=== PATIENT | female | born 1950 | race Caucasian/White ===

== ENCOUNTER 2022-11-13 15:55 | Outpatient (CLI) | payer MEDICARE, BC, SELFPAY | END 2022-11-13 15:56 | disposition home or self-care (01) | LOC: AMB 11-15 14:05 | PROVIDERS: PCP Internal Medicine; Visit Provider Emergency Medicine Emergency Medical Services | DX: R53.1 Weakness (principal) | CPT/HCPCS: A0425 ==

== ENCOUNTER 2022-11-13 16:24 | Emergency (ER) | payer MEDICARE, BC, SELFPAY ==
[2022-11-13] VITALS (16 sets, daily range): BP systolic 90–137; BP diastolic 59–89; PULSE 72–82; RESP 16; TEMP 36.4; O2SAT 90–100; BMI 32.3
--- NOTE | 2022-11-13 16:53 | ED_ITS ---
HPI - General Adult General Date Seen: 11/13/22 Chief complaint: Weakness Stated complaint: Not feeling well Time Seen by Provider: 11/13/22 16:29 Source: patient, EMS and RN notes reviewed Mode of arrival: EMS Limitations: no limitations History of Present Illness HPI narrative: Patient is a 72-year-old woman brought in by EMS. She was that [place] with her when she began to feel lightheaded. She thinks she may have passed out briefly although she is not sure. EMS reported that she was pale and somewhat clammy on their arrival, they did not relay vital signs but did say that her blood sugar was normal. On arrival here, she says she still feels poorly although she is not able to give any further clarification as to how. She does acknowledge feeling fatigued as well as nauseated. She denies pain anywhere. Specifically, she denies chest pain. She does have a little bit of a headache but says that she has a headache pretty much all the time. This is not unusual. She diverged into a story about a fall this summer where she hit her head and then had 2 black eyes. She was evaluated and had a CT scan which she says was negative and she was diagnosed with concussion. She has a history of hypertension and takes medications for high blood pressure. She denies previous history of stroke or heart attack. She denies any difficulty with speech, focal weakness. She does say that her feet feel numb bilaterally. She has not had any vomiting, denies abdominal or back pain. Denies illness previously today. Has been eating and drinking without difficulty. Related Data Home Medications Medication Instructions Recorded Confirmed alprazolam 0.5 mg tablet 0.5 mg PO PRN 03/24/22 04/20/22 cholecalciferol (vitamin D3) 125 5,000 unit PO DAILY 03/24/22 11/13/22 mcg (5,000 unit) tablet cyanocobalamin (vitamin B-12) 250 250 mcg PO DAILY 03/24/22 11/13/22 mcg lozenges diclofenac sodium 1 % topical gel 15 topical PRN 03/24/22 04/20/22 esomeprazole magnesium 40 mg mg PO BID 03/24/22 04/20/22 capsule,delayed release losartan 50 mg tablet mg PO DAILY 03/24/22 04/20/22 meclizine 12.5 mg tablet 12.5 mg PO PRN 03/24/22 04/20/22 nystatin 100,000 unit/gram topical 1 topical .Bid as needed PRN 03/24/22 04/20/22 ointment sennosides 8.6 mg tablet 8.6 mg PO PRN 03/24/22 04/20/22 tramadol 50 mg tablet 50 mg PO PRN 03/24/22 04/20/22 losartan 100 mg tablet 80 mg PO QDAY Hypertension 11/13/22 11/13/22 Previous Rx's Medication Instructions Recorded alprazolam 0.5 mg tablet 0.5 mg PO BID PRN anxiety #30 tabs 06/06/22 meloxicam 15 mg tablet 15 mg PO DAILY #90 tabs 07/28/22 Allergies Allergy/AdvReac Type Severity Reaction Status Date / Time oxycodone Allergy Mild previous Verified 11/13/22 16:42 opioid dependency Review of Systems Status of ROS: Reports: 10 or more systems reviewed and unremarkable except as noted in History and below [facility] Medical History Anxiety Surgical History History of cervical spinal arthrodesis (04/24/07) History of shoulder surgery History of total knee replacement Status post biopsy of skin (08/2017) Status post total knee replacement Family History Mother Dementia High cholesterol High blood pressure Stroke Father Emphysema lung High cholesterol High blood pressure Myocardial infarction Social History Narrative: nonsmoker Smoking Status: Never smoker How often do you have a drink containing alcohol: never AUDIT-C Alcohol total score: 0 Non-prescribed substance use: denies use Exam Narrative: Exam Narrative: Vital signs as noted above. In general, an alert, nontoxic woman. She keeps her eyes closed throughout our conversation. Head: Normocephalic, atraumatic. Eyes: Pupils are equal reactive. Extraocular movements are full. Conjunctivae are normal. ENT: Mucous membranes are moist. Throat is normal. Neck: Supple without lymphadenopathy. Heart: Regular rate and rhythm. No murmur or rub. Lungs: Clear bilaterally. No increased work of breathing, crackles or wheezes. Abdomen: Soft and nontender. No organomegaly. Extremities: Well perfused. No edema. No calf tenderness. Pulses intact. Neurologic: Patient is alert and oriented to person and place. Speech is fluent. Face is symmetric. Moves all extremities equally. Affect: Flat. Skin: Warm and dry. Well perfused. Const: Vital Signs, click to edit/add: Vital Signs - 24 hr 11/13/22 16:33 11/13/22 16:30 11/13/22 17:00 Temperature 97.5 F L Pulse Rate 74 Pulse Rate [Right Pulse Oximeter] 72 Respiratory Rate 16 Blood Pressure Blood Pressure [Le ft Upper Arm] 116/59 L Pulse Oximetry 100 100 90 Oxygen Delivery Me thod Room Air 11/13/22 17:06 11/13/22 17:15 11/13/22 17:22 Temperature Pulse Rate 74 74 75 Pulse Rate [Right Pulse Oximeter] Respiratory Rate Blood Pressure 119/59 L 127/61 Blood Pressure [Le ft Upper Arm] Pulse Oximetry 100 100 100 Oxygen Delivery Me thod 11/13/22 17:23 11/13/22 17:30 11/13/22 17:42 Temperature Pulse Rate 75 76 74 Pulse Rate [Right Pulse Oximeter] Respiratory Rate Blood Pressure 90/75 Blood Pressure [Le ft Upper Arm] Pulse Oximetry 100 100 100 Oxygen Delivery Me thod 11/13/22 17:49 11/13/22 18:00 11/13/22 18:03 Temperature Pulse Rate 77 74 73 Pulse Rate [Right Pulse Oximeter] Respiratory Rate Blood Pressure 131/68 Blood Pressure [Le ft Upper Arm] Pulse Oximetry 99 100 100 Oxygen Delivery Nd thod 11/13/22 18:15 11/13/22 18:30 11/13/22 19:13 Temperature Pulse Rate 73 79 82 Pulse Rate [Right Pulse Oximeter] Respiratory Rate Blood Pressure 137/65 Blood Pressure [Le ft Upper Arm] Pulse Oximetry 100 100 97 Oxygen Delivery Nd thod 11/13/22 19:22 Temperature Pulse Rate 79 Pulse Rate [Right Pulse Oximeter] Respiratory Rate Blood Pressure 129/89 Blood Pressure [Le ft Upper Arm] Pulse Oximetry 100 Oxygen Delivery Me thod Documenting provider has reviewed patient's vital signs: yes Course Course Hospital Course: On arrival, she was placed on monitor and oximetry. She had an EKG which by my review shows a sinus rhythm at a ventricular rate of 70. She has slight ST elevation in AVR but I do not see any diffuse ST depression. T-waves are unremarkable. Labs are pending. I have ordered 500 mL of normal saline. At this time, she has nonfocal neurologic exam. Symptoms are somewhat nonspecific following either a near syncopal or syncopal event. No reported seizure activity. Labs were most notable for an initial lactate of 3.7, of uncertain significance. Her white blood cell count was normal and she remained afebrile. Hemoglobin was 10.7 which is right around her baseline of 11. Platelets were normal. D- dimer was less than 0.5. Electrolytes were normal, BUN was 19, creatinine was 0.8. Blood sugar was 133. LFTs were normal, CRP was normal at 0.9. Urinalysis showed 2+ ketones, 0-2 reds, 0-2 whites. Initial troponin was 0, a repeat troponin at 2:00 a.m. was 0.1. I did repeat EKG as well, and this continued to show no acute ST segment changes, normal sinus rhythm, a normal corrected QT and normal PA interval. She had about a L of normal saline here and a repeat lactate was 2.4. With ketones in her urine it does raise the possibility of some dehydration contributing to her syncope today. Also of note, she tells me that she had taken tramadol, 2 doses today. She does take tramadol she says fairly regularly for her neck and back pain, but she says she typically does not take it when she goes out, she usually takes it when she is going to bed. So this may have contributed as well. Overall, I have discussed with her I do not have a definitive diagnosis as to the cause of her syncope. She has felt progressively improved while here, and is anxious to go home. I have not found anything concerning overall in her workup. She has been unremarkable on the monitor. From a neurologic and cardiovascular standpoint she is stable. I have asked her to follow up with her primary care doctor in the next week or 2 for re-evaluation, and certainly if she has any recurrent episodes or develops significant symptoms I would want her to return to the emergency department. She is comfortable with that plan. Vital Signs Vital signs: Initial Vital Signs Pulse Oximetry 100 11/13/22 16:30 Vital Signs Pulse Oximetry 100 11/13/22 16:30 Temperature 97.5 F L 11/13/22 16:33 Pulse Rate 79 11/13/22 19:22 Respiratory Rate 16 11/13/22 16:33 Blood Pressure 129/89 11/13/22 19:22 Pulse Oximetry 100 11/13/22 19:22 Oxygen Delivery Method 11/13/22 16:33 Medical Decision Making Lab Data Labs: Lab Results 11/13/22 11/13/22 11/13/22 Range/Units 16:40 17:04 17:04 WBC 7.85 (4.50-11.00) K/uL RBC 3.40 L (4.00-5.20) m/uL Hgb 10.7 L (12.0-16.0) gm/dL Hct 32.7 L (33.0-51.0) % MCV 96 (80-100) fL MCH 32 (26-34) pg MCHC 33 (32-36) gm/dL RDW Coeff of [place] 14.2 (11.5-15.5) % Plt Count 307 (140-440) K/uL Neut % (Auto) 63.0 (42.0-72.0) % Lymph % (Auto) 28.2 (20-44) % [place] % (Auto) 5.6 (0.0-11.0) % Eos % (Auto) 1.9 (0.0-7.0) % Baso % (Auto) 0.3 (0.0-3.0) % Neut # (Auto) 4.95 (1.7-7.0) K/uL Lymph # (Auto) 2.21 (0.90-2.90) K/uL [place] # (Auto) 0.40 (0.00-0.90) K/UL Eos # (Auto) 0.15 (0.00-0.50) K/uL Baso # (Auto) 0.02 (0.00-0.30) K/uL D-Dimer Quant (PE/DVT) 0.49 (0.00-0.50) ug/ml Sodium (135-149) mmol/L Potassium (3.6-5.1) mmol/L Chloride (96-114) mmol/L Carbon Dioxide (20-32) mmol/L BUN (7-30) mg/dL Creatinine (0.5-1.5) mg/dL Estimated Creat Clear Estimated GFR ml/min Glucose (60-115) mg/dL Lactate (0.5-1.9) mmol/L Calcium (8.4-10.6) mg/dL Total Bilirubin (0.1-1.5) mg/dL Direct Bilirubin (0.0-0.5) mg/dL AST (12-35) U/L ALT (4-35) U/L Alkaline Phosphatase (40-150) U/L C-Reactive Protein (0.5-1.0) mg/dL Total Protein (6.0-8.3) g/dL Albumin (3.3-5.0) g/dL Urine Color (Yellow) Urine Appearance (Clear) Urine pH (5.0-8.5) Ur Specific [place] (1.000-1.030) Urine Protein (Negative) Urine Glucose (UA) (Negative) Urine Ketones (Negative) Urine Blood (Negative) Urine Nitrite (Negative) Urine Bilirubin (Negative) Urine Urobilinogen (0.2-1.0) Ur Leukocyte Esterase (Negative) Urine RBC (0-2) Urine WBC (0-5) Ur Squamous Epith Cells (None-Few) Urine Bacteria (None) POC Troponin I 0.01 (0.01-0.04) ng/ml 11/13/22 11/13/22 11/13/22 Range/Units 17:04 17:04 17:45 WBC (4.50-11.00) K/uL RBC (4.00-5.20) m/uL Hgb (12.0-16.0) gm/dL Hct (33.0-51.0) % MCV (80-100) fL MCH (26-34) pg MCHC (32-36) gm/dL RDW Coeff of [place] (11.5-15.5) % Plt Count (140-440) K/uL Neut % (Auto) (42.0-72.0) % Lymph % (Auto) (20-44) % [place] % (Auto) (0.0-11.0) % Eos % (Auto) (0.0-7.0) % Baso % (Auto) (0.0-3.0) % Neut # (Auto) (1.7-7.0) K/uL Lymph # (Auto) (0.90-2.90) K/uL [place] # (Auto) (0.00-0.90) K/UL Eos # (Auto) (0.00-0.50) K/uL Baso # (Auto) (0.00-0.30) K/uL D-Dimer Quant (PE/DVT) (0.00-0.50) ug/ml Sodium 138 (135-149) mmol/L Potassium 3.7 (3.6-5.1) mmol/L Chloride 108 (96-114) mmol/L Carbon Dioxide 20 (20-32) mmol/L BUN 19 (7-30) mg/dL Creatinine 0.8 (0.5-1.5) mg/dL Estimated Creat Clear 56.55 Estimated GFR 77 ml/min Glucose 133 H (60-115) mg/dL Lactate 3.7 H (0.5-1.9) mmol/L Calcium 9.1 (8.4-10.6) mg/dL Total Bilirubin 0.3 (0.1-1.5) mg/dL Direct Bilirubin 0.3 (0.0-0.5) mg/dL AST 27 (12-35) U/L ALT 21 (4-35) U/L Alkaline Phosphatase 81 (40-150) U/L C-Reactive Protein 0.9 (0.5-1.0) mg/dL Total Protein 7.0 (6.0-8.3) g/dL Albumin 4.1 (3.3-5.0) g/dL Urine Color Yellow (Yellow) Urine Appearance Clear (Clear) Urine pH 7.0 (5.0-8.5) Ur Specific [place] 1.015 (1.000-1.030) Urine Protein Trace A (Negative) Urine Glucose (UA) Negative (Negative) Urine Ketones 2+ A (Negative) Urine Blood Negative (Negative) Urine Nitrite Negative (Negative) Urine Bilirubin Negative (Negative) Urine Urobilinogen 0.2 (0.2-1.0) Ur Leukocyte Esterase Negative (Negative) Urine RBC 0-2 (0-2) Urine WBC 0-2 (0-5) Ur Squamous Epith Cells Few (None-Few) Urine Bacteria None (None) POC Troponin I (0.01-0.04) ng/ml 11/13/22 11/13/22 Range/Units 18:44 18:44 WBC (4.50-11.00) K/uL RBC (4.00-5.20) m/uL Hgb (12.0-16.0) gm/dL Hct (33.0-51.0) % MCV (80-100) fL MCH (26-34) pg MCHC (32-36) gm/dL RDW Coeff of [place] (11.5-15.5) % Plt Count (140-440) K/uL Neut % (Auto) (42.0-72.0) % Lymph % (Auto) (20-44) % [place] % (Auto) (0.0-11.0) % Eos % (Auto) (0.0-7.0) % Baso % (Auto) (0.0-3.0) % Neut # (Auto) (1.7-7.0) K/uL Lymph # (Auto) (0.90-2.90) K/uL [place] # (Auto) (0.00-0.90) K/UL Eos # (Auto) (0.00-0.50) K/uL Baso # (Auto) (0.00-0.30) K/uL D-Dimer Quant (PE/DVT) (0.00-0.50) ug/ml Sodium (135-149) mmol/L Potassium (3.6-5.1) mmol/L Chloride (96-114) mmol/L Carbon Dioxide (20-32) mmol/L BUN (7-30) mg/dL Creatinine (0.5-1.5) mg/dL Estimated Creat Clear Estimated GFR ml/min Glucose (60-115) mg/dL Lactate 2.4 H (0.5-1.9) mmol/L Calcium (8.4-10.6) mg/dL Total Bilirubin (0.1-1.5) mg/dL Direct Bilirubin (0.0-0.5) mg/dL AST (12-35) U/L ALT (4-35) U/L Alkaline Phosphatase (40-150) U/L C-Reactive Protein (0.5-1.0) mg/dL Total Protein (6.0-8.3) g/dL Albumin (3.3-5.0) g/dL Urine Color (Yellow) Urine Appearance (Clear) Urine pH (5.0-8.5) Ur Specific [place] (1.000-1.030) Urine Protein (Negative) Urine Glucose (UA) (Negative) Urine Ketones (Negative) Urine Blood (Negative) Urine Nitrite (Negative) Urine Bilirubin (Negative) Urine Urobilinogen (0.2-1.0) Ur Leukocyte Esterase (Negative) Urine RBC (0-2) Urine WBC (0-5) Ur Squamous Epith Cells (None-Few) Urine Bacteria (None) POC Troponin I 0.00 L (0.01-0.04) ng/ml Discharge Plan Discharge Clinical Impression: Syncope Patient Disposition: Home, Self-Care Condition: Improved Instructions: Syncope (DC) Additional Instructions: Follow-up with your primary doctor in the next 1-2 weeks. Return at any time for recurrent fainting, new symptoms such as fever, vomiting, shortness of breath, chest pain or other new symptoms. Make sure to stay on top of hydration, be careful with use of tramadol. Prescriptions: No Action cyanocobalamin (vitamin B-12) 250 mcg lozenge 250 mcg PO DAILY cholecalciferol (vitamin D3) 125 mcg (5,000 unit) tablet 5,000 unit PO DAILY losartan 50 mg tablet PO DAILY tramadol 50 mg tablet 50 mg PO PRN diclofenac sodium 1 % gel 15 topical PRN Rx Instructions: Apply small amount BID as needed esomeprazole magnesium 40 mg capsule,delayed release(DR/EC) PO BID alprazolam 0.5 mg tablet 0.5 mg PO PRN meclizine 12.5 mg tablet 12.5 mg PO PRN nystatin 100,000 unit/gram ointment 1 topical .Bid as needed PRN sennosides 8.6 mg tablet 8.6 mg PO PRN losartan 100 mg tablet 80 mg PO QDAY alprazolam 0.5 mg tablet 0.5 mg PO BID PRN (Reason: anxiety) Qty: 30 0RF meloxicam 15 mg tablet 15 mg PO DAILY Qty: 90 1RF Follow Up/Referrals: Augie Haney MD [Primary Care Provider] - [facility]
[2022-11-13] MEDS: 0.9 % SODIUM CHLORIDE 500 ML 500 ML IV (17:00)
[2022-11-13 17:11] LABS: Lactate* 3.7 mmol/L (0.5-1.9)
[2022-11-13 17:19] LABS: Basophils Absolute Auto 0.02 K/uL (0.00-0.30); Basophils Percent Auto 0.3 % (0.0-3.0); Eosinophils Absolute Auto 0.15 K/uL (0.00-0.50); Eosinophils Percent Auto 1.9 % (0.0-7.0); Hematocrit 32.7 % (33.0-51.0); Hemoglobin* 10.7 gm/dL (12.0-16.0); Immature Granulocytes Abs Auto 0.08 K/uL (0.00-0.30); Lymphocytes Absolute Auto 2.21 K/uL (0.90-2.90); Lymphocytes Percent Auto 28.2 % (20-44); Mean Corpuscular HGB Conc 33 gm/dL (32-36); Mean Corpuscular Hemoglobin 32 pg (26-34); Mean Corpuscular Volume 96 fL (80-100); Monocytes Percent Auto 5.6 % (0.0-11.0); Neutrophils Absolute Auto 4.95 K/uL (1.7-7.0); Platelet Count* 307 K/uL (140-440); RDW Coefficient of Variation % 14.2 % (11.5-15.5); White Blood Count* 7.85 K/uL (4.50-11.00)
[2022-11-13 17:22] LABS: Troponin, Point-of-Care* 0.01 ng/ml (0.01-0.04)
[2022-11-13 17:27] LABS: Slide Review Reflex No
[2022-11-13 17:43] LABS: D Dimer Quantitative* 0.49 ug/ml (0.00-0.50)
[2022-11-13 17:44] LABS: Albumin* 4.1 g/dL (3.3-5.0); Chloride* 108 mmol/L (96-114)
[2022-11-13 17:45] LABS: Potassium* 3.7 mmol/L (3.6-5.1); Sodium* 138 mmol/L (135-149)
[2022-11-13 17:47] LABS: Alkaline Phosphatase* 81 U/L (40-150); Aspartate Amino Transferase* 27 U/L (12-35); Bilirubin Direct* 0.3 mg/dL (0.0-0.5); Bilirubin Total* 0.3 mg/dL (0.1-1.5); Carbon Dioxide* 20 mmol/L (20-32); Creatinine* 0.8 mg/dL (0.5-1.5); Est. Creatinine Clearance* 56.55; Estimated Glomerular Filt Rate 77 ml/min
[2022-11-13 17:48] LABS: Alanine Aminotransferase* 21 U/L (4-35); Blood Urea Nitrogen* 19 mg/dL (7-30); Calcium* 9.1 mg/dL (8.4-10.6); Glucose* 133 mg/dL (60-115)
[2022-11-13 17:50] LABS: C Reactive Protein* 0.9 mg/dL (0.5-1.0)
[2022-11-13 17:56] LABS: Appearance Urine Clear (Clear); Bilirubin Urine Negative (Negative); Blood Urine Negative (Negative); Color Urine Yellow (Yellow); Glucose Urine Negative (Negative); Ketones Urine 2+ (Negative); Leukocyte Esterase Urine Negative (Negative); Nitrite Urine Negative (Negative); Protein Urine Trace (Negative); Specific Gravity Urine 1.015 (1.000-1.030); Urobilinogen Urine 0.2 (0.2-1.0)
[2022-11-13 18:11] LABS: RBC Urine 0-2 (0-2); Squamous Epithelial Cell Urine Few (None-Few); WBC Urine 0-2 (0-5)
--- NOTE | 2022-11-13 18:27 | ED.NURSE ---
Pt able to ambulate to the BR w/ a steady gait.
[2022-11-13 19:06] LABS: Lactate* 2.4 mmol/L (0.5-1.9)
== END 2022-11-13 19:34 | disposition home or self-care (01) ==
PROVIDERS: Emergency Provider Emergency Medicine; PCP Internal Medicine
DX: R55 Syncope and collapse (principal)
CPT/HCPCS: 36415; 80048; 80076; 81001; 83605; 84484; 85025; 85379; 86140; 93005; 94761; 99284; J7120

== ENCOUNTER 2022-11-23 13:19 | Outpatient (CLI) | payer MEDICARE, BC, SELFPAY | END 2022-11-23 13:20 | disposition home or self-care (01) | LOC: NFLDREF 13:21 | PROVIDERS: PCP Internal Medicine; Visit Provider Internal Medicine | DX: E55.9 Vitamin D deficiency, unspecified (principal); I10 Essential (primary) hypertension; R55 Syncope and collapse; D64.9 Anemia, unspecified | CPT/HCPCS: 80048; 87086 ==

== ENCOUNTER 2022-12-08 13:31 | Outpatient (CLI) | payer MEDICARE, BC, SELFPAY ==
--- NOTE | 2022-12-08 15:00 | CRLHL7_ITS ---
For Patients: As a result of the Century Cures Act, medical imaging exams and procedure reports are released immediately into your electronic medical record. You may view this report before your referring provider. If you have questions, please contact your health care provider. INDICATION: Syncope. TECHNIQUE: 2D grayscale, pulsed waveform, and color Doppler ultrasound images acquired through the cervical arteries. COMPARISON: None. FINDINGS: Right side: Partially shadowing echogenic plaque within the carotid bulb. Peak systolic velocities are elevated up to 144 cm/sec. ICA CCA ratio 1.39. Antegrade flow within the vertebral artery and multiphasic flow within the subclavian artery. Left Side: Partially shadowing echogenic plaque within the carotid bulb. Peak systolic velocities are within normal limits. ICA CCA ratio 0.82. Antegrade flow within the vertebral artery and multiphasic flow within the subclavian artery. Other: Please refer to the technologist worksheet for specific flow velocity measurements. IMPRESSION: 1. Moderate (50-69 percent) right internal carotid artery stenosis. 2. Mild (less than 50 percent) left internal carotid artery stenosis. 3. Antegrade flow in the vertebral arteries. Dictated by Nadeem Gauthier MD @ 12/09/2022 9:10:27 AM (Electronically Signed)
== END 2022-12-08 13:32 | disposition home or self-care (01) ==
PROVIDERS: PCP Internal Medicine; Visit Provider Internal Medicine
DX: R55 Syncope and collapse (principal); I65.21 Occlusion and stenosis of right carotid artery; I65.22 Occlusion and stenosis of left carotid artery
CPT/HCPCS: 93306; 93880

== ENCOUNTER 2022-12-19 10:16 | Outpatient (CLI) | payer MEDICARE, BC, SELFPAY | END 2022-12-19 10:17 | disposition home or self-care (01) | PROVIDERS: PCP Internal Medicine; Visit Provider Internal Medicine | DX: I65.29 Occlusion and stenosis of unspecified carotid artery (principal); E55.9 Vitamin D deficiency, unspecified; I10 Essential (primary) hypertension | CPT/HCPCS: 80061 ==

== ENCOUNTER 2023-12-19 09:22 | Outpatient (CLI) | payer MEDICARE, BC, SELFPAY ==
--- OUTSIDE RECORDS SUMMARY | 2023-12-22 07:23 | XMS_ITS | Referral Summary ---
Author Name Unknown Organization [facility] Address [address] [place] [address] Care Team Providers Care Occupational Health Coordinator Name Role Phone Danika Ambrocio M.D. Primary Care Provider Source Comments Patient records contain information from all sites at [facility]. For routine questions regarding patient records, call [phone] during business hours, M-F 8:00 AM - 5:00 PM Central Time. Record requests for emergency care only can be directed to [phone] at any time.[facility] Encounters Date Type Department Care Team Description 12/12/2023 Orders Only [facility] Danika Ambrocio M.D. Screening Mammogram Breast Cancer 11/29/2023 Refill Department of [facility], [facility], in [address] [phone] Danika Ambrocio M.D. Med Refill 11/22/2023 Clinical Communication Department of [facility], [facility], in [address] [phone] Brigette Garcia R.N. Quality (HTN) from Last [...] following with them through [employer] [facility] [place]. Past medications tried: Zoloft. She reports that this has made her mean and irritable in the past. Effexor: Not effective. Degeneration Disc Lumbar 08/04/2014 Overview: She follows with health care specialist which has been helpful. She [...] Comments Blood Pressure 124/74 11/18/2022 1:16 PM FIREBOAT OPERATOR Pulse 76 11/18/2022 1:16 PM FIREBOAT OPERATOR Temperature 36.5 ??C (97.7 ??F) 11/18/2022 1:16 PM CS T Respiratory Rate 18 11/18/2022 1:16 PM FIREBOAT OPERATOR Oxygen Saturation 99% 08/30/2022 12:33 PM FIREBOAT OPERATOR Inhaled Oxygen Concentration - - Weight 72.4 kg (159 lb 9.8 oz) 11/18/2022 1:16 P M FIREBOAT OPERATOR Height 150.5 cm (4' 11.25) 11/18/2022 1:[address] Body Mass Index 31.96 11/18/2022 1:16 PM FIREBOAT OPERATOR Plan of Treatment Not on file Medical Devices Implanted Type Area Watershed Coordinator Device Identifier Shelf Expiration Date Model / Serial / Lot Knee Implant Knee Implant Bilateral: Knee Shoulder Implant Shoulder Implant Bilateral: Shoulder Spine Implant Spine Implant Neck Care Teams Occupational Health Coordinator Relationship Specialty Start Date End Date Danika Ambrocio M.D. [address] [place] [phone] PCP - General Family Medicine 11/16/22
--- OUTSIDE RECORDS SUMMARY | 2023-12-22 07:23 | XMS_ITS | Encounter Summary ---
Author Name Unknown Organization [facility] Address [address] [place] [address] Care Team Providers Care Bureau Director Name Role Phone Danika Ambrocio M.D. Primary Care Provider Reason for Referral * Outpatient (Routine) - Authorized Specialty Diagnoses / Procedures Referred By Wilfred pantoja Referred To Contact Danika Ambrocio M.D. [address] [place] [address] [facility] Region Referral ID Status Reason Start Date Expiration Date V isits Requested Visits Authorized [id number] Authorized 12/12/2023 06/12/2025 1 1 Scheduling Instructions Nurse AWV Do not schedule prior to due date to ensure insurance coverage Visit: Medicare Annual Wellness Never done. * Outpatient (Routine) - Authorized Specialty Diagnoses / Procedures Referred By Wilfred pantoja Referred To Contact Diagnoses Screening Mammogram Breast Cancer Procedures BI Breast Screening Bilateral with Tomosynthesis Danika Ambrocio M.D. [address] [place] [address] [facility] Region Referral ID Status Reason Start Date Expiration Date V isits Requested Visits Authorized [id number] Authorized 12/12/2023 12/11/2024 1 1 Encounter Details Date Type Department Care Team (Late st Contact Info) Description 12/12/2023 Orders Only [facility] MNT Danika Ambrocio M.D. [address] [place] [address] Screening Mammogram Breast Cancer Social History Tobacco [...] Schedule Primary Care nurse visit (clinic) - [facility]; Medicare Annual Wellness Outpatient Referral Routine Expected: 01/09/2024, Expires: 06/09/2024 documented as of this encounter Visit Diagnoses Diagnosis Screening Mammogram Breast Cancer documented in this encounter Additional Health Concerns Assessment Noted Time PHQ-9 Depression Total Score: 6 05/04/20 22 7:55 AM CDT documented as of this encounter Care Teams Bureau Director Relationship Specialty Start Date End Date Danika Ambrocio M.D. [address] [place] [address] PCP - General Family Medicine 11/16/22 documented as of this encounter
--- OUTSIDE RECORDS SUMMARY | 2023-12-22 07:23 | XMS_ITS | Encounter Summary ---
Author Name Unknown Organization [facility] Address [address] [place] [address] Care Team Providers Care Outside Energy Sales Representatives Name Role Phone Danika Ambrocio M.D. Primary Care Provider [phone] Reason for Visit * Reason Onset Date Comments Quality 11/22/2023 HTN Encounter Details Date Type Department Care Team (Late st Contact Info) Description 11/22/2023 Clinical Communication Department of Family Medicine, [facility], in [place], [place] [address] [place] [address] Brigtete Garcia R.N. Quality (HTN) Social History Tobacco [...] documented as of this encounter Care Teams Outside Energy Sales Representatives Relationship Specialty Start Date End Date Danika Ambrocio M.D. [address] [place] [phone] PCP - General Family Medicine 11/16/22 documented as of this encounter
--- OUTSIDE RECORDS SUMMARY | 2023-12-22 07:23 | XMS_ITS | Clinical Summary ---
Author Name Unknown Organization [facility] Address [place], [place] [address] Care Team Providers Care Body Former Name Role Phone Augie Haney MD Primary [...] (174 lb 3.2 oz) 10/24/2019 10:06 AM MEDICAL INSURANCE BILLER boots on Height 151.5 cm (4' 11.65) 11/02/2018 9:[address] Body Mass Index 34.43 11/02/2018 9:42 AM MEDICAL INSURANCE BILLER Plan of Treatment Upcoming Encounters Date Type Department Care Team (Late st Contact Info) Description 01/08/2024 10:20 AM CDT Office Visit [facility] [address] [place] [address] Adelso, Navjot [place] [address] Health Maintenance Due Date Last Done Comments [...] 65+ 05/12/2024 Medical Devices Implanted Type Area Nurse Practitioner Manager Device Identifier Shelf Expiration Date Model / Serial / Lot [id number] spacer Olayinka/Canclls 8mm P Lordotic Acf Fd [id number] [[id number]] Implanted:Qty: 1 on 04/19/2007 at [facility] Explanted:at [facility] (Quantity not on file) Spine Musculoskeletal Transplant 02/14/2010 [id number]# / [id number] / [id number] spacer Olayinka/Canclls 9mm P Lordotic Acf Fd [id number] [[id number]] Implanted:Qty: 1 on 04/19/2007 at [facility] Explanted:at [facility] (Quantity not on file) Spine Musculoskeletal Transplant 12/08/2009 [id number]# / [id number] / Plate Cerv 34mm 2 Level Ant Sp Reflex Hybrid - [id number] Implanted:Qty: 1 on 04/19/2007 at [facility] Spine [employer] [id number] / / Screw Bone 4.0x14mm Va-Sd Sp Reflex Hybrid - [id number] Implanted:Qty: 6 on 04/19/2007 at [facility] Spine [employer] [id number] / / Advance Directives * Full Code (Latest Code Status on File) Date Activated Date Inactivated Comments 04/19/2007 11:32 AM 04/21/2007 3:36 PM Care Teams Body Former Relationship Specialty Start Date End Date Augie Haney MD [address] [place] [address] PCP - General 04/13/07
--- OUTSIDE RECORDS SUMMARY | 2023-12-22 07:23 | XMS_ITS | Continuity of Care Document ---
Author Name Unknown Organization [facility] Address [address] [place] [address] Phone Care Team Providers Care Composite Layup Worker Name Role Phone Edwin RENDON, Amir Unavailable Unavailable Allergies, Adverse Reactions, Alerts Substance Reaction Status Criticality No Known Allergies Active No Inform ation Medications Medication Instructions Dosage Effective Dates (start - stop) Status Comments LANSOPRAZOLE (unknown strength) Not Available - Active XANAX (unknown strength) Not Available - Active TRAMADOL HCL ER (unknown strength) Not Available - Active LEXAPRO (unknown strength) Not Available - Active Procedures Procedure Date Office/Outpatient Visit,New, [facility] 2015 Postop followup visit X-ray exam of [...] Visit,New, Ceci Sharmila/MARY LOU, [address], [place], [place], [id number], tel:[phone] [facility] Other spondylosis, lumbar region 201 6 Mehbod Amir. [facility], [address] [place] [address] [place] [address], [id number], [place]. tel:[phone] Referring Provider: Navjot Perez, [address], [address]. tel:[phone] Z [facility], [address] [place] [address], [address], tel:[phone] [facility] No Information 7 Panvica Tani. [facility], [address] [place] [address], [address], [id number], [place]. tel:[phone] Referring Provider: Augie [facility] [address] [place], [address]. tel:[phone] [facility], [address] [place] [address], [address], [place] tel:[phone] [facility] No Information 0 7 No Information Referring Provider: Ghosh [facility] [address] [place], [address]. tel:[phone] Office consultation , moderate Z [facility], [address] [place] [address], [address], tel:[phone] [facility] No Information 7 No Information Family History Family Member Type Diagnosis Age At Onset No Information Payers Payer name Insurance type Covered green party ID Authoriza tion(s) [employer] [facility] CI [id number] Social History Type Description Quantity Date Captured [...]
--- OUTSIDE RECORDS SUMMARY | 2023-12-22 07:23 | XMS_ITS | Clinical Summary ---
Author Name Unknown Organization [facility] Address [address] [place] [address] Care Team Providers Care Integration Software Developer Name Role Phone Danika Ambrocio M.D. Primary Care Provider [phone] Source Comments Patient records contain information from all sites at [facility]. For routine questions regarding patient records, call [phone] during business hours, M-F 8:00 AM - 5:00 PM Central Time. Record requests for emergency care only can be directed to [phone] at any time.[facility] Allergies Active Allergy Reactions Criticality Noted Date [...] following with them through [employer] in [place]. Past medications tried: Zoloft. She reports that this has made her mean and irritable in the past. Effexor: Not effective. Degeneration Disc Lumbar 08/04/2014 Overview: She follows with plant care worker which has been helpful. She receives 60 tablets of tramadol up to every month to help with chronic low back pain. Resolved Problems Problem Noted Date Diagnosed Date Resolved Date Fatigue 09/20/2022 11/18/2022 Encounters Date Type Department Care Team Description 12/12/2023 Orders Only [facility] PCP TH MNT Danika Ambrocio M.D. Screening Mammogram Breast Cancer 11/29/2023 Refill Department of Family Medicine, [facility], in [place] [address] [facility] [address] Danika Ambrocio M.D. Med Refill 11/22/2023 Clinical Communication Department of Family Medicine, [facility], in [place], [place] [address] [place] [address] Brigette Garcia R.N. Quality (HTN) from Last [...] Comments Blood Pressure 124/74 11/18/2022 1:16 PM SAP BPC DEVELOPER Pulse 76 11/18/2022 1:16 PM SAP BPC DEVELOPER Temperature 36.5 ??C (97.7 ??F) 11/18/2022 1:16 PM CS T Respiratory Rate 18 11/18/2022 1:16 PM SAP BPC DEVELOPER Oxygen Saturation 99% 08/30/2022 12:33 PM SAP BPC DEVELOPER Inhaled Oxygen Concentration - - Weight 72.4 kg (159 lb 9.8 oz) 11/18/2022 1:16 P M SAP BPC DEVELOPER Height 150.5 cm (4' 11.25) 11/18/2022 1:[address] Body Mass Index 31.96 11/18/2022 1:16 PM SAP BPC DEVELOPER Plan of Treatment Health Maintenance Due Date [...] Completed 05/04/2022 Medical Devices Implanted Type Area Inspector Metal Can Device Identifier Shelf Expiration Date Model / Serial / Lot Knee Implant Knee Implant Bilateral: Knee Shoulder Implant Shoulder Implant Bilateral: Shoulder Spine Implant Spine Implant Neck Care Teams Integration Software Developer Relationship Specialty Start Date End Date Danika Ambrocio M.D. [address] [place] [phone] PCP - General Family Medicine 11/16/22
--- OUTSIDE RECORDS SUMMARY | 2023-12-22 07:23 | XMS_ITS | Clinical Summary ---
Author Name Unknown Organization [place] Address [facility] [place] [address] Care Team Providers Care Estimator And Drafter Name Role Phone Augie Haney MD Primary [...] 178 <200 mg/dL 02/09/2018 6:41 PM CDT [facility] Triglycerides 101 <150 mg/dL 02/09/2018 6:41 PM CDT [facility] Comment:Fasting specimen HDL Cholesterol 59 >49 mg/dL 8 6:41 PM CDT [facility] LDL Cholesterol Calculated 99 <100 mg/dL 02/09/2018 6:41 PM CDT [facility] Comment:Desirable: <100 mg/d l Non HDL Cholesterol 119 <130 mg/dL 02/09/2018 6:41 PM CDT [facility] Blood specimen (specimen) 02/09/2018 12:06 PM CDT 02/09/2018 12:07 PM CDT Payton Rand PA-C LAB - BL OOD ORDERABLES [facility] [address] [place] [address] * (ABNORMAL) Comprehensive metabolic panel (02/09/2018 12:06 PM CDT) Sodium 140 133 - 144 mmol/L 02/09/2018 6:41 PM CDT [facility] Potassium 4.3 3.4 - 5.3 mmol/L 02/09/2018 6:41 PM CDT [facility] Chloride 107 94 - 109 mmol/L 02/09/2018 6:41 PM CDT [facility] Carbon Dioxide 24 20 - 32 mmol/L 02/09/2018 6:41 PM CDT [facility] Anion Gap 9 3 - 14 mmol/L 02/09/2018 6:41 PM T [facility] Glucose 97 70 - 99 mg/dL 02/09/2018 6:41 PM CDT [facility] Comment:Fasting specimen Urea Nitrogen 14 7 - 30 mg/dL 02/09/2018 6:41 PM CDT [facility] Creatinine 0.62 0.52 - 1.04 mg/dL 02/09/2018 6:41 PM CDT [facility] GFR Estimate >90 >60 mL/min/1.7 m2 02/09/2018 6:41 PM T [facility] Comment:Non GFR Calc GFR Estimate If Black >90 >60 mL/min/1.7 m2 02/09/2018 6:41 PM CDT [facility] Comment: GFR Calc Calcium 9.2 8.5 - 10.1 mg/dL 02/09/2018 6:41 PM CDT [facility] Bilirubin Total 0.1(L) 0.2 - 1.3 mg/dL 02/09/2018 6:41 PM T [facility] Albumin 3.8 3.4 - 5.0 g/dL 02/09/2018 6:41 PM T [facility] Protein Total 7.6 6.8 - 8.8 g/dL 02/09/2018 6:41 PM CDT [facility] Alkaline Phosphatase 117 40 - 150 U/L 02/09/2018 6:41 PM T [facility] ALT 23 0 - 50 U/L 02/09/2018 6:41 PM T [facility] AST 21 0 - 45 U/L 02/09/2018 6:41 PM T [facility] Blood specimen (specimen) 02/09/2018 12:06 PM CDT 02/09/2018 12:07 PM CDT Payton Evelyn Aaseby-Castillo PA-C LAB - BL OOD ORDERABLES [facility] [address] [place] [address] from Last 3 Months or Most Recently Relevant to Health Maintenance Care Teams Estimator And Drafter Relationship Specialty Start Date End Date Augie Haney MD [facility] [address] [place] [address] PCP - General Emergency Medicine 02/21/22
--- OUTSIDE RECORDS SUMMARY | 2023-12-22 07:23 | XMS_ITS | Encounter Summary ---
Author Name Unknown Organization [facility] Address [address] [place] [address] Care Team Providers Care Supervisor Bottle Machines Name Role Phone Danika Ambrocio M.D. Primary Care Provider Reason for Visit * Reason Comments Med Refill Encounter Details Date Type Department Care Team ([facility] st Contact Info) Description 11/29/2023 Refill Department of Family Medicine, [facility], in [place], [place] [address] [place] [address] Danika Ambrocio M.D. [address] [place] [address] Med Refill Social History Tobacco [...] documented as of this encounter Care Teams Supervisor Bottle Machines Relationship Specialty Start Date End Date Danika Ambrocio M.D. [address] [place] [address] [place] [phone] PCP - General Family Medicine 11/16/22 documented as of this encounter
--- OUTSIDE RECORDS SUMMARY | 2023-12-22 07:23 | XMS_ITS | Referral Summary ---
Author Name Unknown Organization [place] Address [facility] [place] [address] Care Team Providers Care Panman Name Role Phone Augie Haney MD Primary [...] 178 <200 mg/dL 02/09/2018 6:41 PM CDT [facility] Triglycerides 101 <150 mg/dL 02/09/2018 6:41 PM CDT [facility] Comment:Fasting specimen HDL Cholesterol 59 >49 mg/dL 8 6:41 PM CDT [facility] LDL Cholesterol Calculated 99 <100 mg/dL 02/09/2018 6:41 PM CDT [facility] Comment:Desirable: <100 mg/d l Non HDL Cholesterol 119 <130 mg/dL 02/09/2018 6:41 PM CDT [facility] Blood specimen (specimen) 02/09/2018 12:06 PM CDT 02/09/2018 12:07 PM CDT Payton Rand PA-C LAB - BL OOD ORDERABLES [facility] [address] [place] [address] * (ABNORMAL) Comprehensive metabolic panel (02/09/2018 12:06 PM CDT) [facility] Sodium 140 133 - 144 mmol/L 02/09/2018 6:41 PM CDT [facility] Potassium 4.3 3.4 - 5.3 mmol/L 02/09/2018 6:41 PM CDT [facility] Chloride 107 94 - 109 mmol/L 02/09/2018 6:41 PM CDT [facility] Carbon Dioxide 24 20 - 32 mmol/L 02/09/2018 6:41 PM CDT [facility] Anion Gap 9 3 - 14 mmol/L 02/09/2018 6:41 PM T [facility] Glucose 97 70 - 99 mg/dL 02/09/2018 6:41 PM T [facility] Comment:Fasting specimen Urea Nitrogen 14 7 - 30 mg/dL 02/09/2018 6:41 PM T [facility] Creatinine 0.62 0.52 - 1.04 mg/dL 02/09/2018 6:41 PM T [facility] GFR Estimate >90 >60 mL/min/1.7 m2 02/09/2018 6:41 PM T [facility] Comment:Non GFR Calc GFR Estimate If Black >90 >60 mL/min/1.7 m2 02/09/2018 6:41 PM T [facility] Comment: GFR Calc Calcium 9.2 8.5 - 10.1 mg/dL 02/09/2018 6:41 PM CDT [facility] Bilirubin Total 0.1(L) 0.2 - 1.3 mg/dL 02/09/2018 6:41 PM T [facility] Albumin 3.8 3.4 - 5.0 g/dL 02/09/2018 6:41 PM CDT [facility] Protein Total 7.6 6.8 - 8.8 g/dL 02/09/2018 6:41 PM T [facility] Alkaline Phosphatase 117 40 - 150 U/L 02/09/2018 6:41 PM CDT [facility] ALT 23 0 - 50 U/L 02/09/2018 6:41 PM CDT [facility] AST 21 0 - 45 U/L 02/09/2018 6:41 PM CDT [facility] Blood specimen (specimen) 02/09/2018 12:06 PM CDT 02/09/2018 12:07 PM CDT Payton Rand PA-C LAB - BL OOD ORDERABLES [facility] [address] [place] [address] from Last 3 Months or Most Recently Relevant to Health Maintenance Care Teams Panman Relationship Specialty Start Date End Date Augie Haney MD [facility] [address] [place] [address] PCP - General Emergency Medicine 02/21/22
--- OUTSIDE RECORDS SUMMARY | 2023-12-22 07:23 | XMS_ITS ---
Author Name Unknown Organization [facility] Address [address] [place] [address] Care Team Providers Care Business Development Manager Name Role Phone Unavailable Unavailable Unavailable Surgery Details Not on file Complications Check Surgery Details section. Procedure Estimated Blood Loss Check Surgery Details section. Procedure Findings Check Surgery Details section. Procedure Specimens Taken Check Surgery Details section.
== END 2023-12-19 09:23 | disposition home or self-care (01) ==
LOC: NFLDREF 12-22 07:21
PROVIDERS: PCP Internal Medicine; Referring Provider Otolaryngology; Visit Provider Otolaryngology
DX: R42 Dizziness and giddiness (principal); R53.83 Other fatigue; Z13.29 Encounter for screening for other suspected endocrine disorder
CPT/HCPCS: 82565; 84443; 85025; 85651; 86039; 86431; 86618

== ENCOUNTER 2023-12-21 10:17 | Outpatient (CLI) | payer MEDICARE, BC, SELFPAY ==
--- NOTE | 2023-12-21 10:15 | MR_ITS ---
Patient: KEATON BONDS Facility:?[facility] Patient ID:?[id number] Site Patient ID:?[id number]. Site :?[id number] Study:?MRI-Head MRA W/O-12/21/2023 11:12:59 AM Ordering Physician:?ALEX GONZALEZ Final Report: INDICATION: Vertigo. TECHNIQUE: [id number] MRA images of the head. Axial diffusion imaging of the brain. COMPARISON: None. FINDINGS: The internal carotid, middle cerebral, and anterior cerebral arteries are widely patent. The vertebral, basilar, and posterior cerebral arteries are widely patent. No intracranial aneurysm or high-flow vascular malformation. No diffusion restriction to suggest acute infarction. IMPRESSION: 1. Unremarkable MRA of the head. 2. No acute infarction. Dictated by Nadeem Gauthier MD @ 12/21/2023 11:36:30 AM Signed by:?Nadeem Gauthier MD @12/21/2023 11:36:30 AM (Electronic Signature)
--- OUTSIDE RECORDS SUMMARY | 2023-12-21 10:20 | XMS_ITS | Clinical Summary ---
Author Name Unknown Organization [facility] Address [address] [place] [address] Care Team Providers Care Photoengraving Retoucher Name Role Phone Danika Ambrocio M.D. Primary Care Provider [phone] Source Comments Patient records contain information from all sites at [facility]. For routine questions regarding patient records, call [phone] during business hours, M-F 8:00 AM - 5:00 PM Central Time. Record requests for emergency care only can be directed to [phone] at any time.[facility] Allergies Active Allergy Reactions Criticality Noted Date Comments Oxycodone Other (see comments) Low 04/02/2018 Medications Medication Sig Dispensed Refills Start Date End Date Status meclizine (ANTIVERT) 12.5 mg tablet 0 2 Active clobetasoL (TEMOVATE) 0.05 % ointment Apply 1 application topically 2 (two) times a day. Apply to affected area. 0 Active B complex-vitamins (BALANCE B-50) tablet Take 1 tablet by mouth daily. 0 Active cholecalciferol (VITAMIN D3) 125 mcg (5,000 Unit) capsule Take 125 mcg by mouth daily. 0 Active zinc acetate 50 mg (zinc) capsule Take by mouth. 0 Active ascorbic acid, vitamin C, (VITAMIN C) 100 mg tablet Take 100 mg by mouth daily. 0 Active esomeprazole (NexIUM) [address] capsuleIndications :Gastroesophageal Reflux Disease Take 1 capsule (40 mg total) by mouth 2 (two) times a day before breakfast and dinner. 180 capsule 3 2 Active sennosides-docusat e sodium (Senna with Docusate Sodium) 8.6-50 mg per tabletIndications: Constipation Take 1 tablet by mouth 2 (two) times a day. 90 tablet 3 2 Active nystatin (MYCOSTATIN) 100,000 unit/gram ointmentIndication s:Dermatitis Apply topically 2 (two) times a day. 30 g 11 2 Active meloxicam (MOBIC) 15 mg tablet Take 1 tablet (15 mg total) by mouth daily. 90 tablet 3 2 Active PARoxetine (PAXIL) 20 mg tablet Take 1 tablet (20 mg total) by mouth daily. 90 tablet 3 2 Active omeprazole-sodium bicarbonate (ZEGERID) 20 mg-1100 mg per capsule Take 1 capsule by mouth every morning before breakfast. 90 capsule 3 2 Active ALPRAZolam (XANAX) 0.5 mg tabletIndications: Anxiety Take 1 tablet (0.5 mg total) by mouth at bedtime as needed for anxiety. 30 tablet 0 3 Active cyanocobalamin, vitamin B-12, 1,000 mcg capsule Take 250 mcg by mouth. 0 2 Active traMADoL 50 mg tablet 100 mg, acetaminophen 325 mg tablet 650 mg Take 50 mg by mouth. 0 2 Active NIFEdipine (ADALAT CC) 30 mg ER tabletIndications: Hypertension Essential Primary Take 1 tablet (30 mg total) by mouth daily. 90 tablet 3 3 Active valsartan (DIOVAN) 80 mg tabletIndications: Hypertension Essential Primary TAKE 1 TABLET(80 MG) BY MOUTH DAILY 90 tablet 0 3 Active traMADoL (ULTRAM) 50 mg tabletIndications: Chronic Pain/Nonacute Pain Take 1 tablet (50 mg total) by mouth 3 (three) times a day as needed for severe pain or score 7-10 of 10 Indications: Chronic Pain/Nonacute Pain. 60 tablet 0 3 Active buPROPion XL (WELLBUTRIN XL) 150 mg 24 hr tabletIndications: Depression Major One Episode Moderate (HCC) TAKE 1 TABLET(150 MG) BY MOUTH EVERY MORNING 90 tablet 3 4 Active buPROPion XL (WELLBUTRIN XL) 150 mg 24 hr tabletIndications: Depression Major One Episode Moderate (HCC) Take 1 tablet (150 mg total) by mouth every morning. 90 tablet 3 3 11/30/19 24 Discontinued Active Problems Problem Noted Date Diagnosed Date Hypertension Essential Primary 05/21/2022 Overview: She is currently on losartan 100 mg daily. Unfortunately she has most recently tried spironolactone. She was on this for less than 2 weeks but reported significant nausea and GI side effects and is not interested in proceeding with it. No chest pain, shortness of breath, new pedal edema, sensation of irregular heart rate. Past medications tried: Hydrochlorothiazide: No energy. Amlodipine: Fatigue. Foot concerns. Spironolactone:Nausea Anxiety 02/09/2018 Overview: Xanax uses half tablet nightly. Depression Major One Episode Moderate 02/09/2018 Overview: On Paxil 20 mg daily for many years. She reports mood has been worse recently and desires to start an additional medication. She reports that when her anxiety is worse, she notices that her vertigo will flare as well. Due to this, she is afraid that she will have a dizzy spell and has so has not been going out as much. She reports that her last dizzy spell was over a month ago. She has established with psychology and has been following with them through [facility] in [place]. Past medications tried: Zoloft. She reports that this has made her mean and irritable in the past. Effexor: Not effective. Degeneration Disc Lumbar 08/04/2014 Overview: She follows with respiratory care specialist which has been helpful. She receives 60 tablets of tramadol up to every month to help with chronic low back pain. Resolved Problems Problem Noted Date Diagnosed Date Resolved Date Fatigue 09/20/2022 11/18/2022 Encounters Date Type Department Care Team Description 12/12/2023 Orders Only [facility] P[facility] TH MNT Danika Ambrocio M.D. Screening Mammogram Breast Cancer 11/29/2023 Refill Department of Family Medicine, [facility], in [place] [address] [address] [place] [address] Danika Ambrocio M.D. Med Refill 11/22/2023 Clinical Communication Department of Family Medicine, [facility], in [place], [place] [address] [place] [address] Brigette Garcia R.N. Quality (HTN) from Last 3 Months Immunizations Name Administration Dates Next Due HepB Adult 10/02/1992,04/29/1992,04/01/1992 PCV13 08/14/2019 PPSV23(Discontinued) 07/15/2020 RZV (SHINGRIX) 07/15/2020 Tdap 07/15/2020,01/17/2011 Social History Tobacco Use Types Packs/Day Years Used Date Smoking Tobacco: Never Smokeless Tobacco: Never Tobacco Cessation:Counseling Given: Yes Alcohol Use Standard Drinks/Week Comments Yes 3 (1 standard drink = 0.6 oz pur e alcohol) PHQ-2 Answer Date Recorded PHQ-2 Score 0 05/04/2022 Depression Answer Date Recor ded PHQ-9 Total Score (max 27) 6 05/04 Nutrition Answer Date Recorded Nutrition: EVOO Fat Source Unknown 04/22 Nutrition: Servings of Fruits/Vegetables per Day Not on file 04/22/2022 Dental Answer Date Recorded Dental: Regular Dentist Unknown 04/22/20 Sex and Gender Information Value Date Recorded Sex Assigned at Not on file Gender Identity Not on file Sexual Orientation Not on file Last Filed Vital Signs Vital Sign Reading Time Taken Comments Blood Pressure 124/74 11/18/2022 1:16 PM FLAT CUTTER Pulse 76 11/18/2022 1:16 PM FLAT CUTTER Temperature 36.5 ??C (97.7 ??F) 11/18/2022 1:16 PM CS T Respiratory Rate 18 11/18/2022 1:16 PM FLAT CUTTER Oxygen Saturation 99% 08/30/2022 12:33 PM FLAT CUTTER Inhaled Oxygen Concentration - - Weight 72.4 kg (159 lb 9.8 oz) 11/18/2022 1:16 P M FLAT CUTTER Height 150.5 cm (4' 11.25) 11/18/2022 1:[address] Body Mass Index 31.96 11/18/2022 1:16 PM FLAT CUTTER Plan of Treatment Health Maintenance Due Date Last Done Comments Bone Density Scan (Osteoporo sis Screen) 1948 CT Colonography 1948 Colonoscopy 1948 FIT 1950 Visit: Medicare Annual Wellness 1950 Zoster Vaccines (2 of 2) 09/09/2020 07/15/2020 Depression Monitoring (PHQ-9) 09/03/2022 05/04/2022 Mammogram 05/10/2023 05/10/2022 COVID-19 Vaccine (4 - season) 2023 10/26/2021, 12/08/2020, 11/17/2020 Influenza Vaccine (#1) 2023 Fall Risk Screen (Annual) 09/11/2023 Creatinine Level (Kidney Fun ction Test) 09/19/2023 09/19/2022, 05/04/2022 Potassium Level 09/19/2023 09/19/2022, 05/04/2022 Sodium Level 09/19/2023 09/19/2022, 05/04/2022 Office Visit for Blood Press ure Check / Re-check 11/19/2023 11/18/2022 Visit: Chronic Disease, age 18+ 11/19/2023 Cologuard 06/13/2025 06/13/2022, 06/08/2022 Colorectal Cancer Screening 06/13/2025 Fasting Glucose for Diabetes Screening 09/19/2025 09/19/2022, 05/04/2022 DTaP,Tdap,and Td Vaccines (3 - Td or Tdap) 07/15/2030 07/15/2020, 01/17/2011 Hepatitis B Vaccines Completed 10/02/1992, 04/29/1992, 04/01/1992 Pneumococcal vaccine (65+ years) Completed 07/15/20, 08/14/2019 Hepatitis C Screening Completed 05/04/2022 Medical Devices Implanted Type Area Sausage Cutter Device Identifier Shelf Expiration Date Model / Serial / Lot Knee Implant Knee Implant Bilateral: Knee Shoulder Implant Shoulder Implant Bilateral: Shoulder Spine Implant Spine Implant Neck Care Teams Photoengraving Retoucher Relationship Specialty Start Date End Date Danika Ambrocio M.D. [address] [place] [phone] PCP - General Family Medicine 11/16/22
--- OUTSIDE RECORDS SUMMARY | 2023-12-21 10:20 | XMS_ITS ---
Author Name Unknown Organization [facility] Address [address] [place] [address] Care Team Providers Care Application Security Engineer Name Role Phone Unavailable Unavailable Unavailable Surgery Details Not on file Complications Check Surgery Details section. Procedure Estimated Blood Loss Check Surgery Details section. Procedure Findings Check Surgery Details section. Procedure Specimens Taken Check Surgery Details section.
--- OUTSIDE RECORDS SUMMARY | 2023-12-21 10:20 | XMS_ITS | Referral Summary ---
Author Name Unknown Organization [facility] Address [address] [place] [address] Care Team Providers Care De Icer Name Role Phone Danika Ambrocio M.D. Primary Care Provider Source Comments Patient records contain information from all sites at [facility]. For routine questions regarding patient records, call [phone] during business hours, M-F 8:00 AM - 5:00 PM Central Time. Record requests for emergency care only can be directed to [phone] at any time.[facility] Encounters Date Type Department Care Team Description 12/12/2023 Orders Only [facility] Dan[facility] Ambrocio M.D. Screening Mammogram Breast Cancer 11/29/[address] [facility], [facility], in [address] [phone] Danika Ambrocio M.D. Med Refill 11/22/[address] Clinical [address] of [facility], [facility], in [address] [phone] Brigette Garcia R.N. Quality (HTN) from Last 3 Months Allergies Active Allergy Reactions Criticality Noted Date [...] following with them through [employer] in [place]. Past medications tried: Zoloft. She reports that this has made her mean and irritable in the past. Effexor: Not effective. Degeneration Disc Lumbar 08/04/2014 Overview: She follows with caretaker which has been helpful. She receives 60 tablets of tramadol up to every month to help with chronic low back pain. Resolved Problems Problem Noted Date Diagnosed Date Resolved Date Fatigue 09/20/2022 11/18/2022 Immunizations Name Administration Dates Next Due HepB [...] Comments Blood Pressure 124/74 11/18/2022 1:16 PM CONDITIONER TUMBLER OPERATOR Pulse 76 11/18/2022 1:16 PM CONDITIONER TUMBLER OPERATOR Temperature 36.5 ??C (97.7 ??F) 11/18/2022 1:16 PM CS T Respiratory Rate 18 11/18/2022 1:16 PM CONDITIONER TUMBLER OPERATOR Oxygen Saturation 99% 08/30/2022 12:33 PM CONDITIONER TUMBLER OPERATOR Inhaled Oxygen Concentration - - Weight 72.4 kg (159 lb 9.8 oz) 11/18/2022 1:16 P M CONDITIONER TUMBLER OPERATOR Height 150.5 cm (4' 11.25) 11/18/2022 1:[address] Body Mass Index 31.96 11/18/2022 1:16 PM CONDITIONER TUMBLER OPERATOR Plan of Treatment Not on file Medical Devices Implanted Type Area Dermatology Physician Assistant Device Identifier Shelf Expiration Date Model / Serial / Lot Knee Implant Knee Implant Bilateral: Knee Shoulder Implant Shoulder Implant Bilateral: Shoulder Spine Implant Spine Implant Neck Care Teams De Icer Relationship Specialty Start Date End Date Danika Ambrocio M.D. [address] [place] [phone] PCP - General Family Medicine 11/16/22
--- OUTSIDE RECORDS SUMMARY | 2023-12-21 10:21 | XMS_ITS | Encounter Summary ---
Author Name Unknown Organization [facility] Address [address] [place] [address] Care Team Providers Care Manager Lan Name Role Phone Danika Ambrocio M.D. Primary Care Provider [phone] Reason for Visit * Reason Onset Date Comments Quality 11/22/2023 HTN Encounter Details Date Type Department Care Team (Late st Contact Info) Description 11/22/2023 Clinical Communication Department of Family Medicine, [facility], in [place], [place] [address] [place] [address] Brigette Garcia R.N. Quality (HTN) Social History Tobacco Use Types Packs/Day Years Used Date Smoking Tobacco: Never Smokeless Tobacco: Never Alcohol Use Standard Drinks/Week Comments Yes 3 [...] on file Sexual Orientation Not on file documented as of this encounter Miscellaneous Notes * Telephone Encounter - Brigette Garcia, R.N. - 11/22/2023 10:10 AM CDT In reviewing the patient's chart, I have found that the patient is not meeting their blood pressuregoals per Blood Pressure Measurement Protocol. Patient does have a diagnosis of Essential Hypertension or Diabetes. Patient's last blood pressure is not within the past 12 months. Patient's last documented blood pressure was 124/74 on date 11/18/22. Contacted Patient: Attempted to contact patient, unable to leave message, no voicemail available. Left message for patient to return call to clinic. Does the patient need to speak to nursing? no Action needed: Patient is due for an annual appointment. Please assist patient in scheduling lab work and provider appointment. documented in this encounter Plan of Treatment Not on file documented as of this encounter Visit Diagnoses Not on filedocumented in this encounter Additional Health Concerns Assessment Noted Time PHQ-9 Depression Total Score: 6 05/04/20 22 7:55 AM CDT documented as of this encounter Care Teams Manager Lan Relationship Specialty Start Date End Date Danika Ambrocio M.D. [address] [place] [phone] PCP - General Family Medicine 11/16/22 documented as of this encounter
--- OUTSIDE RECORDS SUMMARY | 2023-12-21 10:21 | XMS_ITS | Referral Summary ---
Author Name Unknown Organization [place] Address [facility] [address] Care Team Providers Care Fruit Buyer Name Role Phone Augie Haney MD Primary Care Provider Allergies No known active allergies Medications Medication Sig Dispensed Refills Start Date End Date Status ALPRAZolam (XANAX) 1 MG tablet Three Times A Day as needed 02/08/2018 Active busPIRone (BUSPAR) 5 MG tablet Twice A Day 02/08/2018 Active meloxicam (MOBIC) 15 MG tablet Daily 02/06/2018 Active sertraline (ZOLOFT) 100 MG tablet Daily 02/08/2018 Active cyclobenzaprine (FLEXERIL) 5 MG tablet Three Times A Day as needed 12/28/2017 Active omeprazole-sodium bicarbonate ([facility] OMEPRAZOLE-SOD BICARBONATE) 20-1100 MG CAPS per capsule Daily 09/25/2017 Active Active Problems Problem Noted Date Diagnosed Date Major depressive disorder, single episode, moder ate 02/09/2018 Anxiety 02/09/2018 Immunizations Name Administration Dates Next Due TDAP Vaccine (Adacel) 01/17/2011 Social History Tobacco Use Types Packs/Day Years Used Date Smoking Tobacco: Never Smokeless Tobacco: Never Alcohol Use Standard Drinks/Week Comments No 0 (1 standard drink = 0.6 oz pur e alcohol) Adolescent Education Answer Date Record ed Getting School Help Needed Not on file 06/02 Sex and Gender Information Value Date Recorded Sex Assigned at Not on file Gender Identity Not on file Sexual Orientation Not on file Last Filed Vital Signs Vital Sign Reading Time Taken Comments Blood Pressure 168/74 02/21/2022 4:30 PM CDT Pulse 69 02/21/2022 4:30 PM CDT Temperature 36.9 ??C (98.5 ??F) 02/21/2022 2:35 PM CD T Respiratory Rate 16 02/21/2022 2:35 PM CDT Oxygen Saturation 97% 02/21/2022 4:30 PM CDT Inhaled Oxygen Concentration - - Weight 71.9 kg (158 lb 8.2 oz) 02/21/2022 2:35 P M CDT Height 148 cm (4' 10.25) 02/09/2018 11:18 AM CD T Body Mass Index 32.85 02/09/2018 11:18 AM CDT Plan of Treatment Not on file Procedures Procedure Name Priority Date/Time Associated Diagnosis Comments COMPREHENSIVE METABOLIC PANEL Routine 02/09/2018 12:06 PM CDT Screening for diabetes mellitus LIPID REFLEX TO DIRECT LDL PANEL Routine 02/09/2018 12:06 PM CDT Lipid screening from Last 3 Months or Most Recently Relevant to Health Maintenance Results * Lipid panel reflex to direct LDL Fasting (02/09/2018 12:06 PM CDT) Cholesterol 178 <200 mg/dL 02/09/2018 6:41 PM CDT [facility] Triglycerides 101 <150 mg/dL 02/09/2018 6:41 PM CDT [facility] Comment:Fasting specimen HDL Cholesterol 59 >49 mg/dL 8 6:41 PM CDT [facility] LDL Cholesterol Calculated 99 <100 mg/dL 02/09/2018 6:41 PM CDT [facility] Comment:Desirable: <100 mg/d l Non HDL Cholesterol 119 <130 mg/dL 02/09/2018 6:41 PM CDT [facility] Blood specimen (specimen) 02/09/2018 12:06 PM CDT 02/09/2018 12:07 PM CDT Payton Rand PA-C LAB - BL OOD ORDERABLES [facility] [address] [place] [address] * (ABNORMAL) Comprehensive metabolic panel (02/09/2018 12:06 PM CDT) [facility] Sodium 140 133 - 144 mmol/L 02/09/2018 6:41 PM CDT [facility] Potassium 4.3 3.4 - 5.3 mmol/L 02/09/2018 6:41 PM CDT [facility] Chloride 107 94 - 109 mmol/L 02/09/2018 6:41 PM CDT [facility] Carbon Dioxide 24 20 - 32 mmol/L 02/09/2018 6:41 PM CDT [facility] Anion Gap 9 3 - 14 mmol/L 02/09/2018 6:41 PM T [facility] Glucose 97 70 - 99 mg/dL 02/09/2018 6:41 PM T [facility] Comment:Fasting specimen Urea Nitrogen 14 7 - 30 mg/dL 02/09/2018 6:41 PM T [facility] Creatinine 0.62 0.52 - 1.04 mg/dL 02/09/2018 6:41 PM T [facility] GFR Estimate >90 >60 mL/min/1.7 m2 02/09/2018 6:41 PM T [facility] Comment:Non GFR Calc GFR Estimate If Black >90 >60 mL/min/1.7 m2 02/09/2018 6:41 PM T [facility] Comment: GFR Calc Calcium 9.2 8.5 - 10.1 mg/dL 02/09/2018 6:41 PM CDT [facility] Bilirubin Total 0.1(L) 0.2 - 1.3 mg/dL 02/09/2018 6:41 PM T [facility] Albumin 3.8 3.4 - 5.0 g/dL 02/09/2018 6:41 PM CDT [facility] Protein Total 7.6 6.8 - 8.8 g/dL 02/09/2018 6:41 PM T [facility] Alkaline Phosphatase 117 40 - 150 U/L 02/09/2018 6:41 PM CDT [facility] ALT 23 0 - 50 U/L 02/09/2018 6:41 PM CDT [facility] AST 21 0 - 45 U/L 02/09/2018 6:41 PM CDT [facility] Blood specimen (specimen) 02/09/2018 12:06 PM CDT 02/09/2018 12:07 PM CDT Payton Rand PA-C LAB - BL OOD ORDERABLES [facility] [address] [place] [address] from Last 3 Months or Most Recently Relevant to Health Maintenance Care Teams Fruit Buyer Relationship Specialty Start Date End Date Augie Haney MD [facility] [address] [place] [address] PCP - General Emergency Medicine 02/21/22
--- OUTSIDE RECORDS SUMMARY | 2023-12-21 10:21 | XMS_ITS | Clinical Summary ---
Author Name Unknown Organization [place] Address [facility] [place] [address] Care Team Providers Care Service Mechanic Name Role Phone Augie Haney MD Primary [...] 02/09/2018 11:18 AM CDT Plan of Treatment Health Maintenance Due Date Last Done Comments ADVANCE CARE PLANNING 1950 ANNUAL REVIEW OF HM ORDERS 1948 CT COLONOGRAPHY 1948 DEPRESSION ACTION PLAN 1948 DEXA 1950 FIT 1950 FLEX SIG 1950 sDNA (Cologuard) 1950 COLONOSCOPY 1958 COLORECTAL CANCER SCREENING 1958 HEPATITIS C SCREENING 1966 RSV VACCINE ( & 60+ ) (1 - 1-dose 60+ series) 2008 FALL RISK ASSESSMENT 2013 MEDICARE ANNUAL WELLNESS VISIT 2013 PHQ-9 08/11/2018 02/09/2018 ZOSTER IMMUNIZATION (2 of 2) 09/09/2020 07/15/2020 GLUCOSE 02/09/2021 02/09/2018 LIPID 02/09/2023 02/09/2018 COVID-19 Vaccine (4 - 2022-2 4 season) 2023 10/26/2021, 12/08/2020, 11/17/2020 INFLUENZA VACCINE (#1) 2023 DTAP/TDAP/TD IMMUNIZATION (3 - Td or Tdap) 07/15/2030 07/15/2020, 01/17/2011 Pneumococcal Vaccine: 65+ Years Completed 07/15/2020, 08/14/2019 HPV IMMUNIZATION Aged Out No longer e ligible based on patient's age to complete this topic IPV IMMUNIZATION Aged Out No longer e ligible based on patient's age to complete this topic MENINGITIS IMMUNIZATION Aged Out No l onger eligible based on patient's age to complete this topic RSV MONOCLONAL ANTIBODY Aged Out No l onger eligible based on patient's age to complete this topic Procedures Procedure Name Priority Date/Time Associated Diagnosis [...] 178 <200 mg/dL 02/09/2018 6:41 PM CDT [facility] Triglycerides 101 <150 mg/dL 02/09/2018 6:41 PM CDT [facility] Comment:Fasting specimen HDL Cholesterol 59 >49 mg/dL 8 6:41 PM CDT [facility] LDL Cholesterol Calculated 99 <100 mg/dL 02/09/2018 6:41 PM CDT [facility] Comment:Desirable: <100 mg/d l Non HDL Cholesterol 119 <130 mg/dL 02/09/2018 6:41 PM CDT [facility] Blood specimen (specimen) 02/09/2018 12:06 PM CDT 02/09/2018 12:07 PM CDT Payton Rand PA-C LAB - BL OOD ORDERABLES [facility] [address] [place] [address] * (ABNORMAL) Comprehensive metabolic panel (02/09/2018 12:06 PM CDT) Sodium 140 133 - 144 mmol/L 02/09/2018 6:41 PM CDT [facility] Potassium 4.3 3.4 - 5.3 mmol/L 02/09/2018 6:41 PM CDT [facility] Chloride 107 94 - 109 mmol/L 02/09/2018 6:41 PM CDT [facility] Carbon Dioxide 24 20 - 32 mmol/L 02/09/2018 6:41 PM CDT [facility] Anion Gap 9 3 - 14 mmol/L 02/09/2018 6:41 PM T [facility] Glucose 97 70 - 99 mg/dL 02/09/2018 6:41 PM CDT [facility] Comment:Fasting specimen Urea Nitrogen 14 7 - 30 mg/dL 02/09/2018 6:41 PM CDT [facility] Creatinine 0.62 0.52 - 1.04 mg/dL 02/09/2018 6:41 PM CDT [facility] GFR Estimate >90 >60 mL/min/1.7 m2 02/09/2018 6:41 PM T [facility] Comment:Non GFR Calc GFR Estimate If Black >90 >60 mL/min/1.7 m2 02/09/2018 6:41 PM CDT [facility] Comment: GFR Calc Calcium 9.2 8.5 - 10.1 mg/dL 02/09/2018 6:41 PM CDT [facility] Bilirubin Total 0.1(L) 0.2 - 1.3 mg/dL 02/09/2018 6:41 PM T [facility] Albumin 3.8 3.4 - 5.0 g/dL 02/09/2018 6:41 PM T [facility] Protein Total 7.6 6.8 - 8.8 g/dL 02/09/2018 6:41 PM CDT [facility] Alkaline Phosphatase 117 40 - 150 U/L 02/09/2018 6:41 PM T [facility] ALT 23 0 - 50 U/L 02/09/2018 6:41 PM T [facility] AST 21 0 - 45 U/L 02/09/2018 6:41 PM T [facility] Blood specimen (specimen) 02/09/2018 12:06 PM CDT 02/09/2018 12:07 PM CDT Payton Evelyn Aaseby-Castillo PA-C LAB - BL OOD ORDERABLES [facility] [address] [place] [address] from Last 3 Months or Most Recently Relevant to Health Maintenance Care Teams Service Mechanic Relationship Specialty Start Date End Date Augie Haney MD [facility] [address] [place] [address] PCP - General Emergency Medicine 02/21/22
--- OUTSIDE RECORDS SUMMARY | 2023-12-21 10:21 | XMS_ITS | Encounter Summary ---
Author Name Unknown Organization [facility] Address [address] [place] [address] Care Team Providers Care Furniture Arranger Name Role Phone Danika Ambrocio M.D. Primary Care Provider Reason for Referral * Outpatient (Routine) - Authorized Specialty Diagnoses / Procedures Referred By Wilfred pantoja Referred To Contact Family Medicine Danika Ambrocio M.D. [address] [place] [address] [facility] Region Referral ID Status Reason Start Date Expiration Date V isits Requested Visits Authorized [id number] Authorized 09/12/2023 09/11/2026 1 1 Scheduling Instructions Medicare annual provider visit/HCC gaps Do not schedule prior to due date to ensure insurance coverage Visit: Medicare Annual Wellness Never done. TECHNICIAN * Outpatient (Routine) - Authorized Specialty Diagnoses / Procedures Referred By Wilfred pantoja Referred To Contact Diagnoses Deficiency Estrogen Post Menopausal Procedures BMD Bone Density Spine Hips Danika Ambrocio M.D. [address] [place] [address] [facility] Region Referral ID Status Reason Start Date Expiration Date V isits Requested Visits Authorized [id number] Authorized 09/12/2023 09/11/2024 1 1 TECHNICIAN Encounter Details Date Type Department Care Team (Late st Contact Info) Description 09/12/2023 Orders Only [facility] Danika Win M.D. [address] [place] [address] Deficiency Estrogen Post Menopausal; Monitoring For Therapeutic Drug Therapy Social History Tobacco Use Types Packs/Day Years [...] on file documented as of this encounter Plan of Treatment Scheduled Orders Name Type Priority Associated Diagnoses Orde r Schedule BMD Bone Density Spine Hips Imaging RAD - Routine (most inpatients and all outpatients) Deficiency Estrogen Post Menopausal Expected: 09/26/2023, Expires: 03/10/2024 Basic Metabolic Panel Lab Routine Monitoring For Therapeutic Drug Therapy Expected: 09/26/2023, Expires: 03/10/2024 Scheduled Referrals Name Type Priority Associated Diagnoses Orde r Schedule Family Medicine office visit (clinic) Outpatient Referral Routine Expected: 10/10/2023, Expires: 03/10/2024 documented as of this encounter Visit Diagnoses Diagnosis Deficiency Estrogen Post Menopausal Monitoring For Therapeutic Drug Therapy documented in this encounter Additional Health Concerns Assessment Noted Time PHQ-9 Depression Total Score: 6 05/04/20 22 7:55 AM CDT documented as of this encounter Care Teams Furniture Arranger Relationship Specialty Start Date End Date Danika Ambrocio M.D. [address] [place] [address] PCP - General Family Medicine 11/16/22 documented as of this encounter
--- OUTSIDE RECORDS SUMMARY | 2023-12-21 10:21 | XMS_ITS | Continuity of Care Document ---
Author Name Unknown Organization [facility] Address [address] [place] [address] Phone Care Team Providers Care Document Specialist Name Role Phone Edwin RENDON, Amir Unavailable Unavailable Allergies, Adverse Reactions, Alerts Substance Reaction Status Criticality No Known Allergies Active No Inform ation Medications Medication Instructions Dosage Effective Dates (start - stop) Status Comments LEXAPRO (unknown strength) Not Available - Active TRAMADOL HCL ER (unknown strength) Not Available - Active XANAX (unknown strength) Not Available - Active LANSOPRAZOLE (unknown strength) Not Available - Active Procedures Procedure Date Office/Outpatient Visit,New, [facility] 2015 Postop followup visit X-ray exam of neck spine2-3 views Remove Cerv spine disk, single 07 Remove added Cerv spine disk Neck spine fusion (cerv,below C2) Spinal fusion, ea add'l interspace Allograft, spine surg, structural Insert spine fix dev, ant, 2-3 seg PA Assist Remove Cerv spine disk, single PA Assist Remove added Cerv spine disk A PA Assist Cervical spine fusion (cerv,be low C2) PA Assist Spinal fusion, ea add'l inters pace PA Assist Insert spine fix dev, ant, 2-3 seg Office consultation, moderate 7 Advance Directives Directive Yes / No Effective Date File Name No Information Encounters Encounter Description Practice Location Reason(s) For Visit Diagnoses Date Provider Providers Copied on Encounter Office/Outpa tient Visit,New, Ceci Sharmila/MARY LOU, [address], [place], [place], [id number], tel:[phone] [facility] Other spondylosis, lumbar region 201 6 Mehbod Amir. [facility], [address] [place] [address] [place] [address], [id number], [place]. tel:[phone] Referring Provider: Navjot Perez, [address], [address]. tel:[phone] Z [facility], [address] [place] [address], [address], tel:[phone] [facility] No Information 7 Panvica Tani. [facility], [address] [place] [address], [address], [id number], [place]. tel:[phone] Referring Provider: Augie [facility] [address] [place], [address]. tel:[phone] [facility], [address] [place] [address], [address], [place] tel:[phone] [facility] No Information 0 7 No Information Referring Provider: Hgosh [facility] [address] [place], [address]. tel:[phone] Office consultation , moderate Z [facility], [address] [place] [address], [address], tel:[phone] [facility] No Information 7 No Information Family History Family Member Type Diagnosis Age At Onset No Information Payers Payer name Insurance type Covered green party ID Authoriza tion(s) [employer] [facility] CI [id number] Social History Type Description Quantity Date Captured Comments Alcohol Use Details Unknown Caffeine Use Details Unknown Tobacco Use Status Never smoked tobacco 2015 Smoking Status Never smoker Non-Smoking Tobacco Use Details : No Details Available : No Details Available Sex Female Vital Signs Date / Time: Height Weight BMI Pulse Rate Blood Pressure Temperature Respiratory Rate Body Surface Area Head Circumference Head Circ. Percentile Wt./Femi. Percentile BMI percentile Pulse Ox Inhaled Ox 1:15 PM 58.25 in 72.121 kg (159.00 lbs) 32.9 4 kg/m eter (2) 80 /min 139/82 mm[Hg] Chief Complaint And Reason For Visit No Information Reason For Referral Reason For Referral No Information History Of Present Illness Encounter Date Complaint History Of Prese nt Illness No Information Functional Status Date Functional Assessmen t No Information Instructions Date Instruction Additional Infor mation Weight Management Education Rela fuad to Overweight Weight management: I nstructed to return to General Practitioner timeframe: 1 Month. Related to Overweight Assessments Type Assessment Date No Information Patient Care Teams Name Effective Dates (start - stop) Status Members No Information
--- OUTSIDE RECORDS SUMMARY | 2023-12-21 10:21 | XMS_ITS | Clinical Summary ---
Author Name Unknown Organization [facility] Address [place], [place] [address] Care Team Providers Care Nurses Educator Name Role Phone Augie Haney MD Primary Care Provider Allergies Active Allergy Reactions Criticality Noted Date Comments Oxycodone Emotional Disturbance Low 04/02/2018 Medications Medication Sig Dispensed Refills Start Date End Date Status medication order composer Vitamin D 10,000 U daily 0 10/30/2014 Active meloxicam 15 mg tablet Take 1 tablet by mouth once daily. 0 02/02/2017 Active traMADol (ULTRAM) 50 mg tabletIndications:Nora mbar disc herniation TAKE 1 TABLET BY MOUTH 3 TIMES DAILY NEEDED 36 tablet 2 10/22/2018 Active ALPRAZolam (XANAX) 1 mg tablet Three Times A Day as needed 02/08/2018 Active diclofenac topical (VOLTAREN) 1 % gel APPLY A SMALL AMOUNT TOPICALLY AA BID PRN 2 03/06/2019 Active nystatin (MYCOSTATIN) ointment 11/14/2019 Active PARoxetine (PAXIL) 20 mg tablet 01/20/2020 Active valsartan (DIOVAN) 80 mg tablet Take 80 mg by mouth once daily. 12/28/2022 Active esomeprazole (NEXIUM) 40 mg capsule Take 40 mg by mouth. 2 times per day, before breakfast and dinner 05/04/2022 Active buPROPion (WELLBUTRIN XL) 150 mg Extended-Release tablet Take 150 mg by mouth once daily. 11/18/2022 Active rosuvastatin (Crestor) 10 mg tabletIndications:Bi lateral carotid artery stenosis Take 1 Tablet (10 mg) by mouth at bedtime. 90 Tablet 3 01/19/2023 Active aspirin (ECOTRIN) 81 mg enteric coated tabletIndications:Bi lateral carotid artery stenosis Take 1 Tablet (81 mg) by mouth once daily with a meal. 90 Tablet 3 01/19/2023 Active Active Problems Problem Noted Date Diagnosed Date Bilateral carotid artery stenosis 01/19/2023 DDD (degenerative disc disease), lumbar 08/04/20 14 Lumbar disc herniation 08/04/2014 Lumbar radicular pain 08/04/2014 Social History Tobacco Use Types Packs/Day Years Used Date Smoking Tobacco: Never Passive Smoke Exposure: Past Smokeless Tobacco: Never Tobacco Cessation:Counseling Given: Not Answered Comments:parents smoked Alcohol Use Standard Drinks/Week Comments Yes 0 (1 standard drink = 0.6 oz pur e alcohol) once in a while Social Connections Answer Date Recorded Frequency of Communication with Friends and Fami ly Not on file 09/11/2021 Financial Resource Strain Answer Date R ecorded Difficulty of Paying Living Expenses Not on file 09/11/2021 Difficulty of Paying Living Expenses Not on file 09/11/2021 Sex and Gender Information Value Date Recorded Sex Assigned at Not on file Gender Identity Not on file Sexual Orientation Not on file Obstetrics History Last Filed Vital Signs Vital Sign Reading Time Taken Comments Blood Pressure 165/77 01/19/2023 9:25 AM CDT Pulse 66 01/19/2023 9:25 AM CDT Temperature 36.7 ??C (98.1 ??F) 10/24/2019 10:[address] Respiratory Rate 16 04/21/2007 8:00 AM CDT Oxygen Saturation 99% 01/19/2023 9:25 AM CDT Inhaled Oxygen Concentration - - Weight 79 kg (174 lb 3.2 oz) 10/24/2019 10:06 AM BLOOD BANK ASSISTANT boots on Height 151.5 cm (4' 11.65) 11/02/2018 9:[address] Body Mass Index 34.43 11/02/2018 9:42 AM BLOOD BANK ASSISTANT Plan of Treatment Upcoming Encounters Date Type Department Care Team (Late st Contact Info) Description 01/08/2024 10:20 AM CDT Office Visit [facility] [address] [place] [address] Adelso, Navjot [place] [address] Health Maintenance Due Date Last Done Comments Tdap 1959 Depression screening for age 12+ 1960 Hepatitis C screening for age 18-79 1966 Tetanus booster 1968 Colonoscopy through age 75 1993 Lipids for age 45-75 1993 Zoster (shingles) series for age 50+ (1 of 2) 1998 DEXA/DXA scan for age 65+ 2013 Medicare Wellness for age 65+ 2013 Pneumococcal series for age 65+ (1 of 1 - PCV) 2013 BMI (ht and wt on same day) for age 18+ 11/02/2019 0 11/02/2018, 09/07/2017 COVID-19 vaccine series (1 - 2022- season) 2023 Influenza for age 65+ 05/12/2024 Medical Devices Implanted Type Area Ladies Suit Operator Device Identifier Shelf Expiration Date Model / Serial / Lot [id number] spacer Olayinka/Canclls 8mm P Lordotic Acf Fd [id number] [[id number]] Implanted:Qty: 1 on 04/19/2007 at [facility] Explanted:at [facility] (Quantity not on file) Spine Musculoskeletal Transplant 02/14/2010 [id number] / [id number] / [id number] spacer Olayinka/Canclls 9mm P Lordotic Acf Fd [id number] [[id number]] Implanted:Qty: 1 on 04/19/2007 at [facility] Explanted:at [facility] (Quantity not on file) Spine Musculoskeletal Transplant 12/08/2009 [id number]# / [id number] / Plate Cerv 34mm 2 Level Ant Sp Reflex Hybrid - [id number] Implanted:Qty: 1 on 04/19/2007 at [facility] Spine [employer] [id number] / / Screw Bone 4.0x14mm Va-Sd Sp Reflex Hybrid - [id number] Implanted:Qty: 6 on 04/19/2007 at [facility] Spine [employer] [id number] / / Advance Directives * Full Code (Latest Code Status on File) Date Activated Date Inactivated Comments 04/19/2007 11:32 AM 04/21/2007 3:36 PM Care Teams Nurses Educator Relationship Specialty Start Date End Date Augie Haney MD [address] [place] [address] PCP - General 04/13/07
--- OUTSIDE RECORDS SUMMARY | 2023-12-21 10:21 | XMS_ITS | Encounter Summary ---
Author Name Unknown Organization [facility] Address [address] [place] [address] Care Team Providers Care Retail Reset Merchandiser Name Role Phone Danika Ambrocio M.D. Primary Care Provider [phone] Reason for Visit * Reason Comments Med Refill Encounter Details Date Type Department Care Team ([facility] st Contact Info) Description 11/29/2023 Refill Department of Family Medicine, [facility], in [place], [place] [address] [place] [address] Danika Ambrocio M.D. [address] [place] [address] Med Refill Social History Tobacco Use Types Packs/Day Years [...] as of this encounter Plan of Treatment Not on file documented as of this encounter Visit Diagnoses Diagnosis Depression Major One Episode Moderate (HCC) documented in this encounter Additional Health Concerns Assessment Noted Time PHQ-9 Depression Total Score: 6 05/04/20 22 7:55 AM CDT documented as of this encounter Care Teams Retail Reset Merchandiser Relationship Specialty Start Date End Date Danika Ambrocio M.D. [address] [place] [address] [place] [phone] PCP - General Family Medicine 11/16/22 documented as of this encounter
--- OUTSIDE RECORDS SUMMARY | 2023-12-21 10:21 | XMS_ITS | Encounter Summary ---
Author Name Unknown Organization [facility] Address [address] [place] [address] Care Team Providers Care Sourcing Specialist Name Role Phone Danika Ambrocio M.D. Primary Care Provider Reason for Referral * Outpatient (Routine) - Authorized Specialty Diagnoses / Procedures Referred By Wilfred pantoja Referred To Contact Danika Ambrocio M.D. [address] [place] [address] [facility] Region Referral ID Status Reason Start Date Expiration Date V isits Requested Visits Authorized [id number] Authorized 12/12/2023 06/12/2025 1 1 Scheduling Instructions Nurse AWV Do not schedule prior to due date to ensure insurance coverage Visit: Medicare Annual Wellness Never done. * Outpatient (Routine) - Authorized Specialty Diagnoses / Procedures Referred By Wilfred pantoja Referred To Contact Diagnoses Screening Mammogram Breast Cancer Procedures BI Breast Screening Bilateral with Tomosynthesis Danika Ambrocio M.D. [address] [place] [address] [facility] Region Referral ID Status Reason Start Date Expiration Date V isits Requested Visits Authorized [id number] Authorized 12/12/2023 12/11/2024 1 1 Encounter Details Date Type Department Care Team (Late st Contact Info) Description 12/12/2023 Orders Only [facility] MNT Danika Ambrocio M.D. [address] [place] [address] Screening Mammogram Breast Cancer Social History Tobacco Use Types Packs/Day Years [...] Scheduled Orders Name Type Priority Associated Diagnoses Order Schedule BI Breast Screening Bilateral with Tomosynthesis Imaging RAD - Routine (most inpatients and all outpatients) Screening Mammogram Breast Cancer Expected: 01/11/2024, Expires: 06/09/2024 Scheduled Referrals Name Type Priority Associated Diagnoses Orde r Schedule Primary Care nurse visit (clinic) - [facility]; Medicare Annual Wellness Outpatient Referral Routine Expected: 01/09/2024, Expires: 06/09/2024 documented as of this encounter Visit Diagnoses Diagnosis Screening Mammogram Breast Cancer documented in this encounter Additional Health Concerns Assessment Noted Time PHQ-9 Depression Total Score: 6 05/04/20 22 7:55 AM CDT documented as of this encounter Care Teams Sourcing Specialist Relationship Specialty Start Date End Date Danika Ambrocio M.D. [address] [place] [address] PCP - General Family Medicine 11/16/22 documented as of this encounter
== END 2023-12-21 10:18 | disposition home or self-care (01) ==
LOC: MRI 10:18
PROVIDERS: PCP Internal Medicine; Visit Provider Otolaryngology
DX: R42 Dizziness and giddiness (principal)
CPT/HCPCS: 70544

== ENCOUNTER 2024-01-15 11:00 | Outpatient (CLI) | payer MEDICARE, BC, SELFPAY ==
--- NOTE | 2024-02-27 12:14 | W.PM.SLEEP ---
Sleep Study Details Details Interpreting Provider: Rodrigo Date of Sleep Study: 01/15/2024 Sleep Study Details: STUDY TYPE:? Home unattended ? BMI:? Not record ORDERING PROVIDER:Waldemar Benedict INDICATION:? Concerns about sleep apnea ? SLEEP SUMMARY:? 514 minutes monitored RESPIRATORY SUMMARY:? AHI 5.8 per CMS guideline Low oxygen 84 2.3% of study oxygen less than 90% Snoring 95.9% PERIODIC LIMB MOVEMENTS OF SLEEP:? Not recorded CARDIAC:? IMPRESSION:? [] RECOMMENDATION: []
--- OUTSIDE RECORDS SUMMARY | 2024-03-25 10:58 | XMS_ITS | Clinical Summary ---
Author Organization [place] Address [facility] [place] [address] Care Team Providers Care Brand Sales Consultant Name Role Phone Augie Haney MD Primary [...] 178 <200 mg/dL 02/09/2018 6:[address] [facility] Triglycerides 101 <150 mg/dL 02/09/2018 6:[address] [facility] Comment:Fasting specimen HDL Cholesterol 59 >49 mg/dL 8 6:[address] [facility] LDL Cholesterol Calculated 99 <100 mg/dL 02/09/2018 6:[address] [facility] Comment:Desirable: <100 mg/d l Non HDL Cholesterol 119 <130 mg/dL 02/09/2018 6:[address] [facility] Blood specimen (specimen) 02/09/2018 12:06 PM CDT 02/09/2018 12:07 PM CDT Payton Rand PA-C LAB - BL OOD ORDERABLES [facility] [address] [place] [address] * (ABNORMAL) Comprehensive metabolic panel (02/09/2018 12:06 PM CDT) Sodium 140 133 - 144 mmol/L 02/09/2018 6:[address] [facility] Potassium 4.3 3.4 - 5.3 mmol/L 02/09/2018 6:[address] [facility] Chloride 107 94 - 109 mmol/L 02/09[facility]2018 [facility] Carbon Dioxide 24 20 - 32 mmol/L 02/09/2018 6:[address] [facility] Anion Gap 9 3 - 14 mmol/L 02/09/2018 6:[address] [facility] Glucose 97 70 - 99 mg/dL 02/09/2018 6:[address] [facility] Comment:Fasting specimen Urea Nitrogen 14 7 - 30 mg/dL 02/09/2018 6:[address] [facility] Creatinine 0.62 0.52 - 1.04 mg/dL 02/09/2018 6:[address] [facility] GFR Estimate >90 >60 mL/min/1.7 m2 02/09/2018 6:[address] [facility] Comment:Non GFR Calc GFR Estimate If Black >90 >60 mL/min/1.7 m2 02/09/2018 6:[address] [facility] Comment: GFR Calc Calcium 9.2 8.5 - 10.1 mg/dL 02/09/2018 6:[address] [facility] Bilirubin Total 0.1(L) 0.2 - 1.3 mg/dL 02/09/2018 6:[address] [facility] Albumin 3.8 3.4 - 5.0 g/dL 02/09/2018 6:[address] [facility] Protein Total 7.6 6.8 - 8.8 g/dL 02/09/2018 6:[address] [facility] Alkaline Phosphatase 117 40 - 150 U/L 02/09/2018 6:[address] [facility] ALT 23 0 - 50 U/L 02/09/2018 6:[address] [facility] AST 21 0 - 45 U/L 02/09/2018 6:[address] [facility] Blood specimen (specimen) 02/09/2018 12:06 PM CDT 02/09/2018 12:07 PM CDT Payton Rand PA-C LAB - BL OOD ORDERABLES [facility] [address] [place] [address] from Last 3 Months or Most Recently Relevant to Health Maintenance Care Teams Brand Sales Consultant Relationship Specialty Start Date End Date Augie Haney MD [facility] [address] [place] [address] PCP - General Emergency Medicine 02/21/22
--- OUTSIDE RECORDS SUMMARY | 2024-03-25 10:58 | XMS_ITS | Encounter Summary ---
Author Organization [facility] Address [address] [place] [address] Care Team Providers Care Leader Tier Name Role Phone None Reported, Pcp Primary Care Provider Unavail able Reason for Visit * Reason Onset Date Comments Quality 01/09/2024 HTN Encounter Details Date Type Department Care Team (Late st Contact Info) Description 01/09/2024 Clinical Communication Department of Family Medicine, [facility], in [place], [place] [address] [place] [address] Brigette Garcia, RSusyNSusy Quality (HTN) Social History [...] documented as of this encounter Care Teams Leader Tier Relationship Specialty Start Date End Date None Reported, Pcp PCP - General Family Medicine 01/09/24 documented as of this encounter
--- OUTSIDE RECORDS SUMMARY | 2024-03-25 10:58 | XMS_ITS | Encounter Summary ---
Author Organization [facility] Address [address] [place] [address] Care Team Providers Care Crosscutter Rolled Glass Name Role Phone Danika Ambrocio M.D. Primary Care Provider Reason for Visit * Reason Comments Med Refill Encounter Details Date Type Department Care Team ([facility] st Contact Info) Description 12/29/2023 Refill Department of Family Medicine, [facility], in [place], [place] [address] [place] [phone] Danika Ambrocio M.D. [address] [place] [address] Med Refill Social History Tobacco [...] documented as of this encounter Care Teams Crosscutter Rolled Glass Relationship Specialty Start Date End Date Danika Ambrocio M.D. [address] [place] [address] [place] [phone] PCP - General Family Medicine 11/16/22 01/08/24 documented as of this encounter
--- OUTSIDE RECORDS SUMMARY | 2024-03-25 10:58 | XMS_ITS | Encounter Summary ---
Author Organization [facility] Address [address] [place] [address] Care Team Providers Care File Conversion Operator Name Role Phone None Reported, Pcp Primary Care Provider Unavail able Reason for Visit * Reason Onset Date Comments Quality 11/22/2023 HTN Encounter Details Date Type Department Care Team (Late st Contact Info) Description 11/22/2023 Clinical Communication Department of Family Medicine, [facility], in [place], [place] [address] [place] [address] Brigette Garcia, R.N. Quality (HTN) Social History [...] documented as of this encounter Care Teams File Conversion Operator Relationship Specialty Start Date End Date None Reported, Pcp PCP - General Family Medicine 01/09/24 documented as of this encounter
--- OUTSIDE RECORDS SUMMARY | 2024-03-25 10:58 | XMS_ITS ---
Author Organization [facility] Address [address] [place] [address] Care Team Providers Care Bacteriologist Pharmaceutical Name Role Phone Unavailable Unavailable Unavailable Surgery Details Not on file Complications Check Surgery Details section. Procedure Estimated Blood Loss Check Surgery Details section. Procedure Findings Check Surgery Details section. Procedure Specimens Taken Check Surgery Details section.
--- OUTSIDE RECORDS SUMMARY | 2024-03-25 10:58 | XMS_ITS | Clinical Summary ---
Author Organization [facility] Address [address] [place] [address] Care Team Providers Care Benzene Washer Name Role Phone None Reported, Pcp Primary Care Provider Unavail able Source Comments Patient records contain information from all sites at [facility]. For routine questions regarding patient records, call [phone] during business hours, M-F 8:00 AM - 5:00 PM Central Time. Record requests for emergency care only can be directed to [phone] at any time.[facility] Allergies Active Allergy Reactions Criticality Noted Date [...] following with them through [employer] in [place]. Past medications tried: Zoloft. She reports that this has made her mean and irritable in the past. Effexor: Not effective. 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 She receives 60 tablets of tramadol up to every month to help with chronic low back pain. Resolved Problems Problem Noted Date Diagnosed Date Resolved Date Fatigue 09/20/2022 11/18/2022 Encounters Date Type Department Care Team Description 02/01/2024 Refill Department of Family [facility], [facility], in [place], [place] [address] [place] [phone] Danika Ambrocio M.D. Med Refill 01/09/2024 Clinical Communication Department of Family [facility], [facility], in [place], [place] [address] [place] [phone] Brigette Garcia R.N. Quality (HTN) 12/29/2023 Refill Department of Family [facility], [facility], in [place], [place] [address] [place] [phone] Danika Ambrocio M.D. Med Refill 12/28/2023 Refill Department of Family Medicine, [facility], in [place] [address] [facility] [place] [phone] Danika Ambrocio M.D. Med Refill from Last 3 Months Immunizations Name Administration [...] Comments Blood Pressure 124/74 11/18/2022 1:16 PM TIER TRUCK DRIVER Pulse 76 11/18/2022 1:16 PM TIER TRUCK DRIVER Temperature 36.5 ??C (97.7 ??F) 11/18/2022 1:16 PM CS T Respiratory Rate 18 11/18/2022 1:16 PM TIER TRUCK DRIVER Oxygen Saturation 99% 08/30/2022 12:33 PM TIER TRUCK DRIVER Inhaled Oxygen Concentration - - Weight 72.4 kg (159 lb 9.8 oz) 11/18/2022 1:16 P M TIER TRUCK DRIVER Height 150.5 cm (4' 11.25) 11/18/2022 1:[address] Body Mass Index 31.96 11/18/2022 1:16 PM TIER TRUCK DRIVER Plan of Treatment Health Maintenance Due Date [...] Completed 05/04/2022 Medical Devices Implanted Type Area Bond Analyst Device Identifier Shelf Expiration Date Model / Serial / Lot Knee Implant Knee Implant Bilateral: Knee Shoulder Implant Shoulder Implant Bilateral: Shoulder Spine Implant Spine Implant Neck Procedures Procedure Name Priority Date/Time Associated Diagnosis Comments BASIC METABOLIC PANEL, S/P Routine 09/19/2022 3:11 PM TIER TRUCK DRIVER Hypertension Essential Primary COLOGUARD Routine 06/08/2022 10:00 [...] * Basic Metabolic Panel (09/19/2022 3:11 PM TIER TRUCK DRIVER) Pathologist [facility] Potassium, P 3.8 3.6 - 5.2 mmol/L 09/19/2022 3:37 PM TIER TRUCK DRIVER CNFL Sodium, P 139 135 - 145 mmol/L 09/19/2022 3:37 PM TIER TRUCK DRIVER CNFL Chloride, P 104 98 - 107 mmol/L 09/19/2022 3:37 PM TIER TRUCK DRIVER CNFL Bicarbonate, P 22 22 - 29 mmol/L 09/19/2022 3:37 PM TIER TRUCK DRIVER CNFL Anion Gap, P 13 7 - 15 09/19/2022 3:37 PM TIER TRUCK DRIVER CNFL BUN (Blood Urea Nitrogen), P 16 6 - 21 mg/dL 09/19/2022 3:37 PM TIER TRUCK DRIVER CNFL Creatinine 0.65 0.59 - 1.04 mg/dL 09/19/2022 3:37 PM TIER TRUCK DRIVER CNFL Estimated GFR (eGFR) >90 >=60 mL/min/BSA 09/19/2022 3:37 PM TIER TRUCK DRIVER CNFL Comment: Estimated GFR calculated using the 2020 CKD_EPI creatinine equation. Calcium, Total, P 9.5 8.8 - 10.2 mg/dL 09/19/2022 3:37 PM TIER TRUCK DRIVER CNFL Glucose, P 138 70 - 140 mg/dL 09/19/2022 3:37 PM TIER TRUCK DRIVER CNFL Blood (Blood, Venous) 09/19/2022 3:11 PM TIER TRUCK DRIVER 09/19/2022 3:13 PM TIER TRUCK DRIVER Gloria Mercado M.D. LAB BLOOD ADD-ON [facility] [address] [place] [address] in [address] [address] * Cologuard-Sent Out Lab (06/08/2022 10:00 AM CDT) [facility] Signature Result Negative Negative 06/13/2022 4:51 PM CDT [...] Amor et al, N Engl J Med 2014;370(14):9127-1241) The normal value (reference range) for this assay is negative. COLOGUARD RE-SCREENING RECOMMENDATION: Periodic colorectal cancer screening is an important part of preventive healthcare for asymptomatic individuals at average risk for colorectal cancer. ??Following a negative Cologuard result, the [employer] Cancer Society and U.S. Multi-Society Task Force screening guidelines recommend a Cologuard re-screening interval of 3 years. References: [employer] Guideline for Colorectal Cancer Screening: https://www.cancer.org/cancer/cziyo-tqymbm-xszhgz/detection- diagnosis-staging/acs-recommendations.html.; Fred WILLS, Bernard RUIZ, Tee AlmeidaK, Colorectal Cancer Screening: Recommendations for Physicians and Patients from the U.S. Multi-Society Task Force on Colorectal Cancer Screening , Am J Gastroenterology 2017; 112:2433-2421. TEST DESCRIPTION: Composite algorithmic analysis of stool [...] screened with both Cologuard and colonoscopy. (Cristela Hyatt al, N Engl J Med 2014;370(14):7662-9489.) Cologuard may produce a false negative or false positive result (no colorectal cancer or precancerous polyp present at colonoscopy follow up). A negative Cologuard test result does not guarantee the absence of CRC or advanced adenoma (pre-cancer). The current Cologuard screening interval is every 3 years. ([place] Cancer Society and U.S. Multi-Society Task Force). Cologuard performance data in a 10,000 patient pivotal study using colonoscopy as the reference method can be accessed at the following location: www.SageMetrics/results. Additional description of the Cologuard test process, warnings and precautions can be found at www.cologRB-Doorsrd.com. Stool (Stool) 06/08/2022 10: 00 AM CDT 06/09/2022 1:36 PM CDT Gloria Mercado M.D. LAB BODY FLUIDS AND STOOLS ORDERABLES [employer] [address] [place] [address] EXLI [employer] [address] [facility], [address] [place] [address] * BI Breast Screening Bilateral with Tomosynthesis [...] HCV Ab Screen, S Negative Negative 05/04/20 4:19 PM CDT ECLR Comment: Biotin has been identified by the cnc programmer as a potential interfering substance. Higher concentrations of biotin may be found in multivitamins, hair/nail supplements, and workout supplements. If the result does not match clinical observations, repeat testing after patient refrains from the use of supplements for at least 12 hours. Blood (Blood, Venous) 05/04/2022 9:46 AM CDT 05/04/2022 2:36 PM CDT Narrative [facility] - 05/04/2022 4:19 PM CDT Specimen Information: Specimen ID: [id number] Specimen Type: Blood Specimen Collection Start Date: 05/04/2022 ??9:46 AM Specimen Received Date: 05/04/2022 ??2:36 PM Specimen ID: [id number] Specimen Type: Blood Specimen Collection Start Date: 05/04/2022 ??9:46 AM Specimen Received Date: 05/04/2022 ??2:36 PM Gloria Mercado M.D. LAB MICROBIOLOGY - BLOOD ORDERABLES [facility] [address] [place] [address], [facility] [place] ECLR [facility] in [place] [address] [place] [address] from Last 3 Months or Most Recently Relevant to Health Maintenance Care Teams Benzene Washer Relationship Specialty Start Date End Date None Reported, Pcp PCP - General Family Medicine 01/09/24
--- OUTSIDE RECORDS SUMMARY | 2024-03-25 10:58 | XMS_ITS | Referral Summary ---
Author Organization [facility] Address [address] [place] [address] Care Team Providers Care Male Impersonator Name Role Phone None Reported, Pcp Primary Care Provider Unavail able Source Comments Patient records contain information from all sites at [facility]. For routine questions regarding patient records, call [phone] during business hours, M-F 8:00 AM - 5:00 PM Central Time. Record requests for emergency care only can be directed to [phone] at any time.[facility] Encounters Date Type Department Care Team Description 02/01/2024 Refill Department of Family [facility], [facility], [address] [phone] Danika Ambrocio M.D. Med Refill 01/09/2024 Clinical Communication Department of [facility], [facility], [address] [phone] Brigette Garcia R.N. Quality (HTN) 12/29/2023 Refill Department of [facility], [facility], [address] [phone] Danika Ambrocio M.D. Med Refill 12/28/2023 Refill Department of [facility], [address] [phone] Danika Ambrocio M.D. Med Refill from Last 3 Months Allergies Active Allergy [...] following with them through [employer] in [place]. Past medications tried: Zoloft. She reports that this has made her mean and irritable in the past. Effexor: Not effective. 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 She receives 60 [...] Comments Blood Pressure 124/74 11/18/2022 1:16 PM BACKSIDE GRINDER Pulse 76 11/18/2022 1:16 PM BACKSIDE GRINDER Temperature 36.5 ??C (97.7 ??F) 11/18/2022 1:16 PM CS T Respiratory Rate 18 11/18/2022 1:16 PM BACKSIDE GRINDER Oxygen Saturation 99% 08/30/2022 12:33 PM BACKSIDE GRINDER Inhaled Oxygen Concentration - - Weight 72.4 kg (159 lb 9.8 oz) 11/18/2022 1:16 P M BACKSIDE GRINDER Height 150.5 cm (4' 11.25) 11/18/2022 1:[address] Body Mass Index 31.96 11/18/2022 1:16 PM BACKSIDE GRINDER Plan of Treatment Not on file Medical Devices Implanted Type Area Surgical Services Tech Device Identifier Shelf Expiration Date Model / Serial / Lot Knee Implant Knee Implant Bilateral: Knee Shoulder Implant Shoulder Implant Bilateral: Shoulder Spine Implant Spine Implant Neck Procedures Procedure Name Priority Date/Time Associated Diagnosis Comments BASIC METABOLIC PANEL, S/P Routine 09/19/2022 3:11 PM BACKSIDE GRINDER Hypertension Essential Primary COLOGUARD Routine 06/08/2022 10:00 [...] * Basic Metabolic Panel (09/19/2022 3:11 PM BACKSIDE GRINDER) Potassium, P 3.8 3.6 - 5.2 mmol/L 09/19/2022 3:37 PM BACKSIDE GRINDER CNFL Sodium, P 139 135 - 145 mmol/L 09/19/2022 3:37 PM BACKSIDE GRINDER CNFL Chloride, P 104 98 - 107 mmol/L 09/19/2022 3:37 PM BACKSIDE GRINDER CNFL Bicarbonate, P 22 22 - 29 mmol/L 09/19/2022 3:37 PM BACKSIDE GRINDER CNFL Anion Gap, P 13 7 - 15 09/19/2022 3:37 PM BACKSIDE GRINDER CNFL BUN (Blood Urea Nitrogen), P 16 6 - 21 mg/dL 09/19/2022 3:37 PM BACKSIDE GRINDER CNFL Creatinine 0.65 0.59 - 1.04 mg/dL 09/19/2022 3:37 PM BACKSIDE GRINDER CNFL Estimated GFR (eGFR) >90 >=60 mL/min/BSA 09/19/2022 3:37 PM BACKSIDE GRINDER CNFL Comment: Estimated GFR calculated using the 2020 CKD_EPI creatinine equation. Calcium, Total, P 9.5 8.8 - 10.2 mg/dL 09/19/2022 3:37 PM BACKSIDE GRINDER CNFL Glucose, P 138 70 - 140 mg/dL 09/19/2022 3:37 PM BACKSIDE GRINDER CNFL Blood (Blood, Venous) 09/19/2022 3:11 PM BACKSIDE GRINDER 09/19/2022 3:13 PM BACKSIDE GRINDER Gloria Mercado M.D. LAB BLOOD ADD-ON [facility] [address] [place] [address], [facility] CNFL [facility] in [address] [address] * Cologuard-Sent Out Lab (06/08/2022 10:00 AM [...] Amor et al, N Engl J Med 2014;370(14):5127-3632) The normal value (reference range) for this assay is negative. COLOGUARD RE-SCREENING RECOMMENDATION: Periodic colorectal cancer screening is an important part of preventive healthcare for asymptomatic individuals at average risk for colorectal cancer. ??Following a negative Cologuard result, the [place] Cancer Society and U.S. Multi-Society Task Force screening guidelines recommend a Cologuard re-screening interval of 3 years. References: [employer] Cancer Society Guideline for Colorectal Cancer Screening: https://www.cancer.org/cancer/ivinn-ujqear-btobjv/detection- diagnosis-staging/acs-recommendations.html.; Fred WILLS, Bernard RUIZ, Tee NIETO, Colorectal Cancer Screening: Recommendations for Physicians and Patients from the U.S. Multi-Society Task Force on Colorectal Cancer Screening , Am J Gastroenterology 2017; 112:6209-5217. TEST DESCRIPTION: Composite algorithmic analysis of stool [...] (Cristela Hyatt al, N Engl J Med 2014;370(14):8746-6468.) Cologuard may produce a false negative or false positive result (no colorectal cancer or precancerous polyp present at colonoscopy follow up). A negative Cologuard test result does not guarantee the absence of CRC or advanced adenoma (pre-cancer). The current Cologuard screening interval is every 3 years. ([place] Cancer Society and U.S. Multi-Society Task Force). Cologuard performance data in a 10,000 patient pivotal study using colonoscopy as the reference method can be accessed at the following location: www.[employer]results. Additional description of the Cologuard test process, warnings and precautions can be found at www.goviral.Beautified. Stool (Stool) 06/08/2022 10: 00 AM CDT 06/09/2022 1:36 PM CDT Gloria Mercado M.D. LAB BODY FLUIDS AND STOOLS ORDERABLES [employer] [address] [place] [address] EXLI [employer] [address] [facility], [address] [place] [address] * BI Breast Screening Bilateral with Tomosynthesis [...] ASSESSMENT: BI-RADS: 1: Negative. Gloria Mercado M.D. IMMegan BI PROCEDURES * HCV Ab Scrn w/Reflex to HCV PCR, Serum (05/04/2022 9:46 AM CDT) HCV Ab Screen, S Negative Negative 05/04/20 22 4:19 PM CDT ECLR Comment: Biotin has been identified by the director of head start as a potential interfering substance. Higher concentrations of biotin may be found in multivitamins, hair/nail supplements, and workout supplements. If the result does not match clinical observations, repeat testing after patient refrains from the use of supplements for at least 12 hours. Blood (Blood, Venous) 05/04/2022 9:46 AM CDT 05/04/2022 2:36 PM CDT Narrative [facility] - 05/04/2022 4:19 PM CDT Specimen Information: Specimen ID: [id number] Specimen Type: Blood Specimen Collection Start Date: 05/04/2022 ??9:46 AM Specimen Received Date: 05/04/2022 ??2:36 PM Specimen ID: [id number] Specimen Type: Blood Specimen Collection Start Date: 05/04/2022 ??9:46 AM Specimen Received Date: 05/04/2022 ??2:36 PM Gloria Mercado M.D. LAB MICROBIOLOGY - BLOOD ORDERABLES [facility] [address] [place] [address], [facility] ECLR [facility] [place] [address] from Last 3 Months or Most Recently Relevant to Health Maintenance Care Teams Male Impersonator Relationship Specialty Start Date End Date None Reported, Pcp PCP - General Family Medicine 01/09/24
--- OUTSIDE RECORDS SUMMARY | 2024-03-25 10:58 | XMS_ITS | Encounter Summary ---
Author Organization [facility] Address [address] [place] [address] Care Team Providers Care Superintendent Commissary Name Role Phone None Reported, Pcp Primary Care Provider Unavail able Reason for Visit * Reason Comments Med Refill Encounter Details Date Type Department Care Team ([facility] st Contact Info) Description 02/01/2024 Refill Department of Family Medicine, [facility], in [place], [place] [address] [place] [address] Danika Ambrocio M.D. [address] [place] [phone] Med Refill Social History Tobacco [...] documented as of this encounter Care Teams Superintendent Commissary Relationship Specialty Start Date End Date None Reported, Pcp PCP - General Family Medicine 01/09/24 documented as of this encounter
--- OUTSIDE RECORDS SUMMARY | 2024-03-25 10:58 | XMS_ITS | Referral Summary ---
Author Organization [facility] Address [facility]ly [facility] [place] [address] Care Team Providers Care Bass Guitar Teacher Name Role Phone Augie Haney MD Primary [...] <200 mg/dL 02/09/2018 6:[address] [facility] Triglycerides 101 <150 mg/dL 02/09/2018 6:[address] [facility] Comment:Fasting specimen HDL Cholesterol 59 >49 mg/dL 8 6:[address] [facility] LDL Cholesterol Calculated 99 <100 mg/dL 02/09/2018 6:[address] [facility] Comment:Desirable: <100 mg/d l Non HDL Cholesterol 119 <130 mg/dL 02/09/2018 6:[address] [facility] Blood specimen (specimen) 02/09/2018 12:06 PM CDT 02/09/2018 12:07 PM CDT Payton Rand PA-C LAB - BL OOD ORDERABLES [facility] [address] [place] [address] * (ABNORMAL) Comprehensive metabolic panel (02/09/2018 12:06 PM CDT) [facility] Sodium 140 133 - 144 mmol/L 02/09/2018 6:[address] [facility] Potassium 4.3 3.4 - 5.3 mmol/L 02/09/2018 6:[address] [facility] Chloride 107 94 - 109 mmol/L 02/09/2018 6:[address] [facility] Carbon Dioxide 24 20 - 32 mmol/L 02/09/2018 6:[address] [facility] Anion Gap 9 3 - 14 mmol/L 02/09/2018 6:[address] [facility] Glucose 97 70 - 99 mg/dL 02/09/2018 6:[address] [facility] Comment:Fasting specimen Urea Nitrogen 14 7 - 30 mg/dL 02/09/2018 6:[address] [facility] Creatinine 0.62 0.52 - 1.04 mg/dL 02/09/2018 6:[address] [facility] GFR Estimate >90 >60 mL/min/1.7 m2 02/09/2018 6:[address] [facility] Comment:Non GFR Calc GFR Estimate If Black >90 >60 mL/min/1.7 m2 02/09/2018 6:[address] [facility] Comment: GFR Calc Calcium 9.2 8.5 - 10.1 mg/dL 02/09/2018 6:[address] [facility] Bilirubin Total 0.1(L) 0.2 - 1.3 mg/dL 02/09/2018 6:[address] [facility] Albumin 3.8 3.4 - 5.0 g/dL 02/09/2018 6:[address] [facility] Protein Total 7.6 6.8 - 8.8 g/dL 02/09/2018 6:[address] [facility] Alkaline Phosphatase 117 40 - 150 U/L 02/09/2018 6:[address] [facility] ALT 23 0 - 50 U/L 02/09/2018 6:[address] [facility] AST 21 0 - 45 U/L 02/09/2018 6:[address] [facility] Blood specimen (specimen) 02/09/2018 12:06 PM CDT 02/09/2018 12:07 PM CDT Payton Rand PA-C LAB - BL OOD ORDERABLES [facility] [address] [place] [address] from Last 3 Months or Most Recently Relevant to Health Maintenance Care Teams Bass Guitar Teacher Relationship Specialty Start Date End Date Augie Haney MD [facility] [address] [place] [address] PCP - General Emergency Medicine 02/21/22
--- OUTSIDE RECORDS SUMMARY | 2024-03-25 10:58 | XMS_ITS | Continuity of Care Document ---
Author Organization [facility] Address [address] [place] [address] Phone Care Team Providers Care Composite Assembler Name Role Phone Edwin RENDON, Amir Unavailable [...] - Active Procedures Procedure Date Office/Outpatient Visit,New, [facility] 2015 Postop followup visit X-ray exam of [...] tient Visit,New, Ceci Sharmila[facility], [address], [place], [place], [id number], [place] tel:[phone] [facility] Other spondylosis, lumbar region 201 [address] Mehbod Amir. [facility], [address] [place] [address] [place] [address], [id number], [place]. tel:[phone] Referring Provider: Navjot Perez, [address], [address]. tel:[phone] Z [facility], [address] [place] [address], [address], tel:[phone] [facility] No Information 7 Panvica Tani. [facility], [address] [place] [address], [address], [id number], [place]. tel:[phone] Referring Provider: [facility] [address] [place], [address]. tel:[phone] Z [facility], [address] [place] [address], [address], [place] tel:[phone] [facility] No Information 7 No Information Referring Provider: [facility] [address] [place], [address]. tel:[phone] Office consultation , moderate Z [facility], [address] [place] [address], [address], tel:[phone] [facility] No Information 7 No Information Family History Family Member Type Diagnosis Age At Onset No Information Payers Payer name Insurance type Covered alliance party ID Authoriza tion(s) [employer] [facility] CI [id number] Social History Type Description Quantity Date Captured [...]
--- OUTSIDE RECORDS SUMMARY | 2024-03-25 10:58 | XMS_ITS | Encounter Summary ---
Author Organization [facility] Address [address] [place] [address] Care Team Providers Care Research Agricultural Engineer Name Role Phone Danika Ambrocio M.D. Primary Care Provider [phone] Reason for Visit * Reason Comments Med Refill Encounter Details Date Type Department Care Team ([facility] st Contact Info) Description 12/28/2023 Refill Department of Family Medicine, [facility], in [place], [place] [address] [place] [phone] Danika Ambrocio M.D. [address] [place] [address] Med Refill Social History Tobacco [...] documented as of this encounter Care Teams Research Agricultural Engineer Relationship Specialty Start Date End Date Danika Ambrocio M.D. [address] [place] [address] [place] [phone] PCP - General Family Medicine 11/16/22 01/08/24 documented as of this encounter
--- OUTSIDE RECORDS SUMMARY | 2024-03-25 10:58 | XMS_ITS | Clinical Summary ---
Author Organization [employer] [facility] Address [place], [place] [address] Care Team Providers Care Airbrush Artist Name Role Phone Augie Haney MD Primary [...] Description 03/11/2024 11:45 AM CDT Ancillary Procedure [address] [address] 03/11/2024 11:30 AM CDT Ancillary Procedure [facility] [address] [place] [address] 03/11/2024 10:00 AM CDT Office Visit [address] [address] Navjot Darden MD Musculoskeletal Problem (Consult low [...] Friends and Fami ly Not on file 03/11/2024 Financial Resource Strain Answer Date R ecorded [...] Body Mass Index 33.52 11/02/2018 9:42 AM INVESTOR Plan of Treatment Upcoming Encounters Date Type Department Care Team (Late st Contact Info) Description 03/26/2024 10:20 AM CDT Office Visit [facility] [address] [place] [address] Navjot Darden MD [address] [place] [address] 05/15/2024 10:40 AM CDT Office Visit [facility] [address] [place] [address] Navjot Darden MD [address] [place] [address] Health Maintenance Due Date Last Done Comments [...] 65+ 05/12/2024 Medical Devices Implanted Type Area Broadcast Designer Device Identifier Shelf Expiration Date Model / Serial / Lot [id number] spacer Olayinka/Canclls 8mm P Lordotic Acf Fd [id number] [[id number]] Implanted:Qty: 1 on 04/19/2007 at [facility] Explanted:at [facility] (Quantity not on file) Spine Musculoskeletal Transplant 02/14/2010 [id number] / [id number] / [id number] spacer Olayinka/Canclls 9mm P Lordotic Acf Fd [id number] [[id number]] Implanted:Qty: 1 on 04/19/2007 at [facility] Explanted:at [facility] (Quantity not on file) Spine Musculoskeletal Transplant 12/08/2009 [id number] / [id number] / Plate Cerv 34mm 2 Level Ant Sp Reflex Hybrid - [id number] Implanted:Qty: 1 on 04/19/2007 at [facility] Spine [employer] [id number] / / Screw Bone 4.0x14mm Va-Sd Sp Reflex Hybrid - [id number] Implanted:Qty: 6 on 04/19/2007 at [facility] Spine [employer] [id number] / / Procedures Procedure Name Priority Date/Time Associated Diagnosis Comments XR SPINE CERVICAL 3 VIEWS Routine 03/11/2024 11:32 AM CDT DDD (degenerative disc disease), cervical S/P cervical spinal fusion Cervical radiculopathy XR SPINE LUMBAR 2 VIEWS Routine 03/11/2024 11:32 AM CDT DDD (degenerative disc disease), lumbar Lumbar radiculopathy from Last 3 Months Results * XR SPINE CERVICAL 3 VIEWS (03/11/2024 11:32 AM CDT) Anatomical Region Laterality Modality CERVICAL SPINE Computed Radiogr aphy 03/12/2024 3:14 PM CDT Impressions 03/12/2024 3:14 PM CDT Intact ACDF hardware C5 through C7. Degenerative disc disease and facet degeneration above the fusion. Dictated by Latrell Osorio MD @ 03/12/2024 3:14:42 PM (Electronically Signed) Narrative 03/12/2024 3:14 PM CDT For Patients: ??As a result of the Cures Act, medical imaging exams and procedure reports are released immediately into your electronic medical record. ??You may view this report before your referring provider. ??If you have questions, please contact your health care provider. INDICATION: Degenerative disc disease, spinal fusion TECHNIQUE: Cervical spine 3 view. COMPARISON: 09/23/2019 FINDINGS: Postop changes anterior discectomy and fusion C5 through C7. No fracture. Hardware intact. Mild degenerative disc disease above the level of fusion. Facet degeneration also present above the fusion. Procedure Note Latrell Osorio MD - 03/12/2024 For Patients: As a result of the Cures Act, medical imagingexams and procedure reports are released immediately into your electronicmedical record. You may view this report before your referring provider.If you have questions, please contact your health care provider. INDICATION: Degenerative disc disease, spinal fusion TECHNIQUE: Cervical spine 3 view. COMPARISON: 09/23/2019 FINDINGS: Postop changes anterior discectomy and fusion C5 through C7. No fracture.Hardware intact. Mild degenerative disc disease above the level of fusion.Facet degeneration also present above the fusion. IMPRESSION: Intact ACDF hardware C5 through C7. Degenerative disc disease and facetdegeneration above the fusion. Dictated by Latrell Osorio MD @ 03/12/2024 3:14:42 PM (Electronically Signed) Navjot Darden MD GENERAL IMAGING * XR SPINE LUMBAR 2 VIEWS (03/11/2024 11:32 AM CDT) Anatomical Region Laterality Modality LUMBAR SPINE Computed Radiogr aphy 03/12/2024 3:13 PM CDT Impressions 03/12/2024 3:13 PM CDT Multilevel degenerative changes. Dictated by Latrell Osorio MD @ 03/12/2024 3:13:25 PM (Electronically Signed) Narrative 03/12/2024 3:13 PM CDT For Patients: ??As a result of the Cures Act, medical imaging exams and procedure reports are released immediately into your electronic medical record. ??You may view this report before your referring provider. ??If you have questions, please contact your health care provider. INDICATION: Lumbar radiculopathy TECHNIQUE: 2-view lumbar spine. COMPARISON: none FINDINGS: Multilevel disc space narrowing and spurring throughout the lumbar spine. Mild rightward curvature lumbar spine. No vertebral body compression fracture. Sacroiliac joints normal. Degenerative facet arthropathy mid and lower lumbar spine. Procedure Note Latrell Osorio MD - 03/12/2024 For Patients: As a result of the Cures Act, medical imagingexams and procedure reports are released immediately into your electronicmedical record. You may view this report before your referring provider.If you have questions, please contact your health care provider. INDICATION: Lumbar radiculopathy TECHNIQUE: 2-view lumbar spine. COMPARISON: none FINDINGS: Multilevel disc space narrowing and spurring throughout the lumbar spine.Mild rightward curvature lumbar spine. No vertebral body compressionfracture. Sacroiliac joints normal. Degenerative facet arthropathy mid andlower lumbar spine. IMPRESSION: Multilevel degenerative changes. Dictated by Latrell Osorio MD @ 03/12/2024 3:13:25 PM (Electronically Signed) Navjot Darden MD GENERAL IMAGING from Last 3 Months Advance Directives * Full Code (Latest Code Status on File) Date Activated Date Inactivated Comments 04/19/2007 11:32 AM 04/21/2007 3:36 PM Care Teams Airbrush Artist Relationship Specialty Start Date End Date Augie Haney MD [address] [place] [address] PCP - General 04/13/07
== END 2024-01-15 11:01 | disposition home or self-care (01) ==
LOC: SLEEP 03-25 10:52
PROVIDERS: PCP Internal Medicine; Visit Provider Otolaryngology
DX: G47.33 Obstructive sleep apnea (adult) (pediatric) (principal)
CPT/HCPCS: 95806

== ENCOUNTER 2024-01-24 13:00 | Outpatient (RCR) | payer MEDICARE, BC, SELFPAY ==
--- NOTE | 2024-01-12 15:59 | URNOTE ---
Request received for authorization for Iron Sucrose (Venofer) ([id number]). Prior authorization is not required as services are based on medical necessity and follow Medicare guidelines.
[2024-01-15 13:12] VITALS: BP 125/83; PULSE 80; RESP 18; TEMP 36.9; O2SAT 98
[2024-01-15] MEDS: 0.9 % SODIUM CHLORIDE 250 ml IV (13:30)
[2024-01-15] MEDS: SODIUM CHLORIDE 0.9 % (FLUSH) 10 ML SYRINGE IVF (13:30)
[2024-01-15] MEDS: IRON SUCROSE COMPLEX 200 MG in 0.9 % SODIUM CHLORIDE 100 ml 440 MG IVPB (13:35)
[2024-01-15 14:02] VITALS: BP 136/76; PULSE 69; RESP 16; TEMP 36.8; O2SAT 97
[2024-01-17 13:36] VITALS: BP 122/77; PULSE 94; RESP 16; TEMP 35.9; O2SAT 95
[2024-01-17] MEDS: IRON SUCROSE COMPLEX 200 MG in 0.9 % SODIUM CHLORIDE 100 ml 440 MG IVPB (13:49)
[2024-01-17] MEDS: 0.9 % SODIUM CHLORIDE 250 ml IV (13:50)
[2024-01-17 14:14] VITALS: BP 110/70; PULSE 82; RESP 16; TEMP 36.3; O2SAT 97
[2024-01-17 14:56] VITALS: BP 112/73; PULSE 84; RESP 18; TEMP 36; O2SAT 99
[2024-01-19 13:13] VITALS: BP 144/80; PULSE 85; RESP 16; TEMP 36.3; O2SAT 100
[2024-01-19] MEDS: 0.9 % SODIUM CHLORIDE 250 ml IV (13:25)
[2024-01-19] MEDS: SODIUM CHLORIDE 0.9 % (FLUSH) 10 ML SYRINGE IVF (13:25)
[2024-01-19] MEDS: IRON SUCROSE COMPLEX 200 MG in 0.9 % SODIUM CHLORIDE 100 ml 420 MG IVPB (13:25)
[2024-01-19 13:43] VITALS: BP 151/78; PULSE 83; RESP 16; TEMP 36.4; O2SAT 100
[2024-01-19 14:17] VITALS: BP 150/82; PULSE 79; RESP 16; TEMP 36.1; O2SAT 99
[2024-01-22 12:54] VITALS: BP 153/87; PULSE 81; RESP 18; TEMP 36.5; O2SAT 99
[2024-01-22] MEDS: IRON SUCROSE COMPLEX 200 MG in 0.9 % SODIUM CHLORIDE 100 ml 440 MG IVPB (13:15)
[2024-01-22 14:05] VITALS: BP 151/85; PULSE 80; TEMP 36.5
[2024-01-22 14:11] VITALS: BP 151/85; PULSE 80; RESP 16; TEMP 36.5; O2SAT 99
[2024-01-24 12:50] VITALS: BP 152/88; PULSE 85; RESP 16; TEMP 36.1; O2SAT 97
[2024-01-24] MEDS: SODIUM CHLORIDE 0.9 % (FLUSH) 10 ML SYRINGE IVF (13:28)
[2024-01-24] MEDS: 0.9 % SODIUM CHLORIDE 250 ml IV (13:28)
[2024-01-24] MEDS: IRON SUCROSE COMPLEX 200 MG in 0.9 % SODIUM CHLORIDE 100 ml 440 MG IVPB (13:28)
[2024-01-24 14:30] VITALS: BP 140/85; PULSE 83; RESP 14; TEMP 36.1; O2SAT 97
== END 2024-07-13 23:59 | disposition home or self-care (01) ==
LOC: CCIC 13:00
PROVIDERS: PCP Internal Medicine; Referring Provider Internal Medicine; Visit Provider Internal Medicine
DX: D64.9 Anemia, unspecified (principal)
CPT/HCPCS: 95806; 96365; 96374; J1756; J7050

== ENCOUNTER 2024-03-11 12:39 | Outpatient (CLI) | payer MEDICARE, BC, SELFPAY ==
--- OUTSIDE RECORDS SUMMARY | 2024-03-11 12:42 | XMS_ITS | Referral Summary ---
Author Organization [facility] Address [address] [place] [address] Care Team Providers Care Chicken Fancier Name Role Phone None Reported, Pcp Primary Care Provider Unavail able Source Comments Patient records contain information from all sites at [facility]. For routine questions regarding patient records, call [phone] during business hours, M-F 8:00 AM - 5:00 PM Central Time. Record requests for emergency care only can be directed to [phone] at any time.[facility] Encounters Date Type Department Care Team Description 02/01/2024 Refill Department of Family Medicine, [facility], [address] [phone] Danika Ambrocio M.D. Med Refill 01/09/2024 Clinical Communication Department of Family [facility], [facility], [address] [phone] Brigette Garcia R.N. Quality (HTN) 12/29/2023 Refill Department of Family [facility], [facility], [address] [phone] Danika Ambrocio M.D. Med Refill 12/28/2023 Refill Department of [facility], [facility], [address] [phone] Danika Ambrocio M.D. Med Refill 12/12/2023 Orders Only [facility] Danika Ambrocio M.D. Screening Mammogram Breast Cancer from Last 3 Months Allergies Active Allergy Reactions Criticality Noted Date Comments Oxycodone Other (see comments) Low 04/02/2018 Medications Medication Sig Dispensed Refills Start Date End Date Status meclizine (ANTIVERT) 12.5 mg tablet 02/11/2022 Active clobetasoL (TEMOVATE) 0.05 % ointment Apply 1 application topically 2 (two) times a day. Apply to affected area. Active B complex-vitamins (BALANCE B-50) tablet Take 1 tablet by mouth daily. Active cholecalciferol (VITAMIN D3) 125 mcg (5,000 Unit) capsule Take 125 mcg by mouth daily. Active zinc acetate 50 mg (zinc) capsule Take by mouth. Active ascorbic acid, vitamin C, (VITAMIN C) 100 mg tablet Take 100 mg by mouth daily. Active esomeprazole (NexIUM) [address] capsuleIndications: Gastroesophageal Reflux Disease Take 1 capsule (40 mg total) by mouth 2 (two) times a day before breakfast and dinner. 180 capsule 3 05/04/2022 Active sennosides-docusate sodium (Senna with Docusate Sodium) 8.6-50 mg per tabletIndications:C onstipation Take 1 tablet by mouth 2 (two) times a day. 90 tablet 3 05/04/2022 Active nystatin (MYCOSTATIN) 100,000 unit/gram ointmentIndications :Dermatitis Apply topically 2 (two) times a day. 30 g 11 05/04/2022 Active meloxicam (MOBIC) 15 mg tablet Take 1 tablet (15 mg total) by mouth daily. 90 tablet 3 07/22/2022 Active PARoxetine (PAXIL) 20 mg tablet Take 1 tablet (20 mg total) by mouth daily. 90 tablet 3 07/22/2022 Active omeprazole-sodium bicarbonate (ZEGERID) 20 mg-1100 mg per capsule Take 1 capsule by mouth every morning before breakfast. 90 capsule 3 07/22/2022 Active ALPRAZolam (XANAX) 0.5 mg tabletIndications:A nxiety Take 1 tablet (0.5 mg total) by mouth at bedtime as needed for anxiety. 30 tablet 11/18/2022 Active cyanocobalamin, vitamin B-12, 1,000 mcg capsule Take 250 mcg by mouth. 03/24/2022 Active traMADoL 50 mg tablet 100 mg, acetaminophen 325 mg tablet 650 mg Take 50 mg by mouth. 03/24/2022 Active NIFEdipine (ADALAT CC) 30 mg ER tabletIndications:H ypertension Essential Primary Take 1 tablet (30 mg total) by mouth daily. 90 tablet 3 11/18/2022 Active traMADoL (ULTRAM) 50 mg tabletIndications:C hronic Pain/Nonacute Pain Take 1 tablet (50 mg total) by mouth 3 (three) times a day as needed for severe pain or score 7-10 of 10 Indications: Chronic Pain/Nonacute Pain. 60 tablet 11/18/2022 Active buPROPion XL (WELLBUTRIN XL) 150 mg 24 hr tabletIndications:D epression Major One Episode Moderate (HCC) TAKE 1 TABLET(150 MG) BY MOUTH EVERY MORNING 90 tablet 3 11/30/2023 Active valsartan (DIOVAN) 80 mg tabletIndications:H ypertension Essential Primary TAKE 1 TABLET(80 MG) BY MOUTH DAILY 90 tablet 01/01/2024 Active Active Problems Problem Noted Date Diagnosed [...] following with them through [facility] in [place]. Past medications tried: Zoloft. She reports that this has made her mean and irritable in the past. Effexor: Not effective. Degeneration Disc Lumbar 08/04/2014 Overview: She follows with healthcare liaison which has been helpful. She receives 60 tablets of tramadol up to every month to help with chronic low back pain. Resolved Problems Problem Noted Date Diagnosed Date Resolved Date Fatigue 09/20/2022 11/18/2022 Immunizations Name Administration Dates Next Due HepB Adult 10/02/1992,04/29/1992,04/01/1992 PCV13 08/14/2019 PPSV23 07/15/2020 RZV (SHINGRIX) 07/15/2020 Tdap 07/15/2020,01/17/2011 Social [...] Comments Blood Pressure 124/74 11/18/2022 1:16 PM STEM THRESHING MACHINE OPERATOR Pulse 76 11/18/2022 1:16 PM STEM THRESHING MACHINE OPERATOR Temperature 36.5 ??C (97.7 ??F) 11/18/2022 1:16 PM CS T Respiratory Rate 18 11/18/2022 1:16 PM STEM THRESHING MACHINE OPERATOR Oxygen Saturation 99% 08/30/2022 12:33 PM STEM THRESHING MACHINE OPERATOR Inhaled Oxygen Concentration - - Weight 72.4 kg (159 lb 9.8 oz) 11/18/2022 1:16 P M STEM THRESHING MACHINE OPERATOR Height 150.5 cm (4' 11.25) 11/18/2022 1:[address] Body Mass Index 31.96 11/18/2022 1:16 PM STEM THRESHING MACHINE OPERATOR Plan of Treatment Not on file Medical Devices Implanted Type Area Computer Systems Support Specialist Device Identifier Shelf Expiration Date Model / Serial / Lot Knee Implant Knee Implant Bilateral: Knee Shoulder Implant Shoulder Implant Bilateral: Shoulder Spine Implant Spine Implant Neck Procedures Procedure Name Priority Date/Time Associated Diagnosis Comments BASIC METABOLIC PANEL, S/P Routine 09/19/2022 3:11 PM STEM THRESHING MACHINE OPERATOR Hypertension Essential Primary COLOGUARD Routine 06/08/2022 10:00 AM CDT Screening Cancer Colon BI BREAST SCREENING BILATERAL WITH TOMOSYNTHESIS RAD - Routine (most inpatients and all outpatients) 05/10/2022 1:51 PM CDT Screening Mammogram Breast Cancer HCV AB SCRN W/REFLEX TO HCV PCR, S Routine 05/04/2022 9:46 AM CDT Screening Examination For Viral Disease from Last 3 Months or Most Recently Relevant to Health Maintenance Results * Basic Metabolic Panel (09/19/2022 3:11 PM STEM THRESHING MACHINE OPERATOR) Pathologist [facility] Potassium, P 3.8 3.6 - 5.2 mmol/L 09/19/2022 3:37 PM STEM THRESHING MACHINE OPERATOR CNFL Sodium, P 139 135 - 145 mmol/L 09/19/2022 3:37 PM STEM THRESHING MACHINE OPERATOR CNFL Chloride, P 104 98 - 107 mmol/L 09/19/2022 3:37 PM STEM THRESHING MACHINE OPERATOR CNFL Bicarbonate, P 22 22 - 29 mmol/L 09/19/2022 3:37 PM STEM THRESHING MACHINE OPERATOR CNFL Anion Gap, P 13 7 - 15 09/19/2022 3:37 PM STEM THRESHING MACHINE OPERATOR CNFL BUN (Blood Urea Nitrogen), P 16 6 - 21 mg/dL 09/19/2022 3:37 PM STEM THRESHING MACHINE OPERATOR CNFL Creatinine 0.65 0.59 - 1.04 mg/dL 09/19/2022 3:37 PM STEM THRESHING MACHINE OPERATOR CNFL Estimated GFR (eGFR) >90 >=60 mL/min/BSA 09/19/2022 3:37 PM STEM THRESHING MACHINE OPERATOR CNFL Comment: Estimated GFR calculated using the 2020 CKD_EPI creatinine equation. Calcium, Total, P 9.5 8.8 - 10.2 mg/dL 09/19/2022 3:37 PM STEM THRESHING MACHINE OPERATOR CNFL Glucose, P 138 70 - 140 mg/dL 09/19/2022 3:37 PM STEM THRESHING MACHINE OPERATOR CNFL Blood (Blood, Venous) 09/19/2022 3:11 PM STEM THRESHING MACHINE OPERATOR 09/19/2022 3:13 PM STEM THRESHING MACHINE OPERATOR Gloria Mercado M.D. LAB BLOOD ADD-ON [facility] [address] [place] [id number], [facility] CNFL [facility] in [address] [address] * Cologuard-Sent Out Lab (06/08/2022 10:00 AM CDT) Result Negative Negative 06/13/2022 4:51 PM CDT EXLI Comment: NEGATIVE TEST RESULT. A negative Cologuard result indicates a low likelihood that a colorectal cancer (CRC) or advanced adenoma (adenomatous polyps with more advanced pre-malignant features) ??is present. The chance that a person with a negative Cologuard test has a colorectal cancer is less than 1 in 1500 (negative predictive value >99.9%) or has an ??advanced adenoma is less than ??5.3% (negative predictive value 94.7%). These data are based on a prospective cross-sectional study of 10,000 individuals at average risk for colorectal cancer who were screened with both Cologuard and colonoscopy. (Cristela Amor et al, N Engl J Med 2014;370(14):1448-4933) The normal value (reference range) for this assay is negative. COLOGUARD RE-SCREENING RECOMMENDATION: Periodic colorectal cancer screening is an important part of preventive healthcare for asymptomatic individuals at average risk for colorectal cancer. ??Following a negative Cologuard result, the [place] [employer] Society and U.S. Multi-Society Task Force screening guidelines recommend a Cologuard re-screening interval of 3 years. References: [place] [employer] Guideline for Colorectal Cancer Screening: https://www.cancer.org/cancer/pujlf-qixdqd-aclugw/detection- diagnosis-staging/acs-recommendations.html.; Fred WILLS, Bernard RUIZ, Tee NIETO, Colorectal Cancer Screening: Recommendations for Physicians and Patients from the U.S. Multi-Society Task Force on Colorectal Cancer Screening , Am J Gastroenterology 2017; 112:3643-9303. TEST DESCRIPTION: Composite algorithmic analysis of stool DNA-biomarkers with hemoglobin immunoassay. ?? Quantitative values of individual biomarkers are not reportable and are not associated with individual biomarker result reference ranges. Cologuard is intended for colorectal cancer screening of adults of either sex, 45 years or older, who are at average-risk for colorectal cancer (CRC). Cologuard has been approved for use by the U.S. FDA. The performance of Cologuard was established in a cross sectional study of average-risk adults aged 50-84. Cologuard performance in patients ages 45 to 49 years was estimated by sub-group analysis of near-age groups. Colonoscopies performed for a positive result may find as the most clinically significant lesion: colorectal cancer [4.0%], advanced adenoma (including sessile serrated polyps greater than or equal to 1cm diameter) [20%] or non- advanced adenoma [31%]; or no colorectal neoplasia [45%]. These estimates are derived from a prospective cross-sectional screening study of 10,000 individuals at average risk for colorectal cancer who were screened with both Cologuard and colonoscopy. (Cristela Stacy. et al, N Engl J Med 2014;370(14):0850-1630.) Cologuard may produce a false negative or false positive result (no colorectal cancer or precancerous polyp present at colonoscopy follow up). A negative Cologuard test result does not guarantee the absence of CRC or advanced adenoma (pre-cancer). The current Cologuard screening interval is every 3 years. ([place] [employer] Society and U.S. Multi-Society Task Force). Cologuard performance data in a 10,000 patient pivotal study using colonoscopy as the reference method can be accessed at the following location: www.[employer]/results. Additional description of the Cologuard test process, warnings and precautions can be found at www.[employer].Kynetx. Stool (Stool) 06/08/2022 10: 00 AM CDT 06/09/2022 1:36 PM CDT Gloria A Wojick M.D. LAB BODY FLUIDS AND STOOLS ORDERABLES [employer] [address] [place] [address] [facility], [address] [place] [address] * BI Breast Screening Bilateral with Tomosynthesis (05/10/2022 1:51 PM CDT) Anatomical Region Laterality Modality Breast, Breast Imaging RST L OS, Breast Imaging ARZ LOS, Breast Imaging FLA LOS Bilateral Mammography 05/10/2022 2:08 PM CDT Impressions 05/10/2022 2:10 PM CDT Negative. RECOMMENDATION: ??Annual Screening Mammogram ASSESSMENT: ??BI-RADS: 1: Negative. Narrative 05/10/2022 2:10 PM CDT EXAM: ??BI BREAST SCREENING BILATERAL WITH TOMOSYNTHESIS Current study was evaluated with a Computer Aided Detection (CAD) system. INDICATION: ??Screening mammogram. COMPARISON: ??No prior exams were available for comparison. Patient has a prior mammogram from 16 years ago. This could not be located. DENSITY: ??b. There are scattered areas of fibroglandular density. FINDINGS: ??No mammographic findings of malignancy. Procedure Note Arnulfo Welch M.D. - 05/10/2022 EXAM: BI BREAST SCREENING BILATERAL WITH TOMOSYNTHESIS Current study was evaluated with a Computer Aided Detection (CAD) system. INDICATION: Screening mammogram. COMPARISON: No prior exams were available for comparison. Patient has aprior mammogram from 16 years ago. This could not be located. DENSITY: b. There are scattered areas of fibroglandular density. FINDINGS: No mammographic findings of malignancy. IMPRESSION: Negative. RECOMMENDATION: Annual Screening Mammogram ASSESSMENT: BI-RADS: 1: Negative. Gloria Mercado M.D. IMG BI PROCEDURES * HCV Ab Scrn w/Reflex to HCV PCR, Serum (05/04/2022 9:46 AM CDT) HCV Ab Screen, S Negative Negative 05/04/20 22 4:19 PM CDT ECLR Comment: Biotin has been identified by the computer training specialist as a potential interfering substance. Higher concentrations of biotin may be found in multivitamins, hair/nail supplements, and workout supplements. If the result does not match clinical observations, repeat testing after patient refrains from the use of supplements for at least 12 hours. Blood (Blood, Venous) 05/04/2022 9:46 AM CDT 05/04/2022 2:36 PM CDT Narrative [facility] - 05/04/2022 4:19 PM CDT Specimen Information: Specimen ID: [id number] Specimen Type: Blood Specimen Collection Start Date: 05/04/2022 ??9:46 AM Specimen Received Date: 05/04/2022 ??2:36 PM Specimen ID: [id number] Specimen Type: Blood Specimen Collection Start Date: 05/04/2022 ??9:46 AM Specimen Received Date: 05/04/2022 ??2:36 PM Gloria Mercado M.D. LAB MICROBIOLOGY - BLOOD ORDERABLES [facility] [address] [place] [address], [facility] ECLR [facility] in [address] [address] from Last 3 Months or Most Recently Relevant to Health Maintenance Care Teams Chicken Fancier Relationship Specialty Start Date End Date None Reported, Pcp PCP - General Family Medicine 01/09/24
--- OUTSIDE RECORDS SUMMARY | 2024-03-11 12:42 | XMS_ITS | Clinical Summary ---
Author Organization [facility] Address [facility] [place] [address] Care Team Providers Care Staple Side Laster Name Role Phone Augie Haney MD Primary [...] 2023 10/26/2021, 12/08/2020, 11/17/2020 INFLUENZA VACCINE (#1) 2024 DTAP/TDAP/TD IMMUNIZATION (3 - Td or Tdap) [...] 178 <200 mg/dL 02/09/2018 6:41 PM CDT [facility] Triglycerides 101 <150 mg/dL 02/09/2018 6:41 PM CDT [facility] Comment:Fasting specimen HDL Cholesterol 59 >49 mg/dL 8 6:41 PM CDT [facility] LDL Cholesterol Calculated 99 <100 mg/dL 02/09/2018 6:41 PM CDT [facility] Comment:Desirable: <100 mg/d l Non HDL Cholesterol 119 <130 mg/dL 02/09/2018 6:41 PM CDT [facility] Blood specimen (specimen) 02/09/2018 12:06 PM CDT 02/09/2018 12:07 PM CDT Payton Rand PA-C LAB - BL OOD ORDERABLES [facility] [address] [place] [address] * (ABNORMAL) Comprehensive metabolic panel (02/09/2018 12:06 PM CDT) Sodium 140 133 - 144 mmol/L 02/09/2018 6:41 PM CDT [facility] Potassium 4.3 3.4 - 5.3 mmol/L 02/09/2018 6:41 PM CDT [facility] Chloride 107 94 - 109 mmol/L 02/09/2018 6:[facility] Carbon Dioxide 24 20 - 32 mmol/L 02/09/2018 6:41 PM T [facility] Anion Gap 9 3 - 14 mmol/L 02/09/2018 6:41 PM [facility] Glucose 97 70 - 99 mg/dL 02/09/2018 6:41 PM T [facility] Comment:Fasting specimen Urea Nitrogen 14 7 - 30 mg/dL 02/09/2018 6:41 PM T [facility] Creatinine 0.62 0.52 - 1.04 mg/dL 02/09/2018 6:41 PM CDT [facility] GFR Estimate >90 >60 mL/min/1.7 m2 02/09/2018 6:41 PM T [facility] Comment:Non GFR Calc GFR Estimate If Black >90 >60 mL/min/1.7 m2 02/09/2018 6:41 PM T [facility] Comment: GFR Calc Calcium 9.2 8.5 - 10.1 mg/dL 02/09/2018 6:41 PM CDT [facility] Bilirubin Total 0.1(L) 0.2 - 1.3 mg/dL 02/09/2018 6:41 PM T [facility] Albumin 3.8 3.4 - 5.0 g/dL 02/09/2018 6:41 PM T [facility] Protein Total 7.6 6.8 - 8.8 g/dL 02/09/2018 6:41 PM CDT [facility] Alkaline Phosphatase 117 40 - 150 U/L 02/09/2018 6:41 PM T [facility] ALT 23 0 - 50 U/L 02/09/2018 6:41 PM T [facility] AST 21 0 - 45 U/L 02/09/2018 6:41 PM T [facility] Blood specimen (specimen) 02/09/2018 12:06 PM CDT 02/09/2018 12:07 PM CDT Payton Rand PA-C LAB - BL OOD ORDERABLES [facility] [address] [place] [address] from Last 3 Months or Most Recently Relevant to Health Maintenance Care Teams Staple Side Laster Relationship Specialty Start Date End Date Augie Haney MD [facility] [address] [place] [address] PCP - General Emergency Medicine 02/21/22
--- OUTSIDE RECORDS SUMMARY | 2024-03-11 12:42 | XMS_ITS | Encounter Summary ---
Author Organization [facility] Address [address] [place] [address] Care Team Providers Care Hospital Plan Administrator Name Role Phone Danika Ambrocio M.D. Primary Care Provider [phone] Reason for Visit * Reason Comments Med Refill Encounter Details Date Type Department Care Team ([facility] st Contact Info) Description 12/29/2023 Refill Department of Family Medicine, [facility], in [place], [place] [address] [place] [phone] Danika Ambrocio M.D. [address] [place] [address] Med Refill Social History Tobacco [...] as of this encounter Visit Diagnoses Diagnosis Hypertension Essential Primary documented in this encounter Additional Health Concerns Assessment Noted Time PHQ-9 Depression Total Score: 6 05/04/20 22 7:55 AM CDT documented as of this encounter Care Teams Hospital Plan Administrator Relationship Specialty Start Date End Date Danika Ambrocio M.D. [address] [place] [address] [place] [phone] PCP - General Family Medicine 11/16/22 01/08/24 documented as of this encounter
--- OUTSIDE RECORDS SUMMARY | 2024-03-11 12:42 | XMS_ITS | Encounter Summary ---
Author Organization [facility] Address [address] [place] [address] Care Team Providers Care Rail Assembler Name Role Phone Danika Ambrocio M.D. Primary Care Provider [phone] Reason for Visit * Reason Comments Med Refill Encounter Details Date Type Department Care Team ([facility] st Contact Info) Description 12/28/2023 Refill Department of Family Medicine, [facility], in [place], [place] [address] [place] [phone] Danika Ambrocio M.D. [address] [place] [address] Med Refill Social History Tobacco [...] documented as of this encounter Care Teams Rail Assembler Relationship Specialty Start Date End Date Danika Ambrocio M.D. [address] [place] [address] [place] [phone] PCP - General Family Medicine 11/16/22 01/08/24 documented as of this encounter
--- OUTSIDE RECORDS SUMMARY | 2024-03-11 12:42 | XMS_ITS | Clinical Summary ---
Author Organization [facility] Address [place], [place] [address] Care Team Providers Care Pie Filler Name Role Phone Augie Haney MD Primary Care Provider [phone] Allergies Active Allergy Reactions Criticality Noted Date [...] a meal. 90 Tablet 3 01/19/2023 Active Ventolin HFA 90 mcg/actuation inhaler INHALE 2 PUFFS BY MOUTH EVERY 6 HOURS NEEDED FOR SHORTNESS OF BREATH OR WHEEZING 08/02/2023 Active clobetasol (TEMOVATE) 0.05 % cream APPLY TO AFFECTED AREAS ON BODY TWICE DAILY FOR 2 WEEKS TAKE 2 WEEK BREAK REPEAT NEEDED FOR FLARES 12/07/2023 Active Active Problems Problem Noted Date Diagnosed Date Bilateral carotid artery stenosis 01/19/2023 DDD (degenerative disc disease), lumbar 08/04/20 14 Lumbar disc herniation 08/04/2014 Lumbar radicular pain 08/04/2014 Encounters Date Type Department Care Team Description 03/11/2024 11:45 AM CDT Ancillary Procedure [address] [address] Arrived 03/11/2024 11:30 AM CDT Ancillary Procedure [facility] [address] [place] [address] Arrived 03/11/2024 10:00 AM CDT Office Visit [address] [address] Navjot Darden MD Musculoskeletal Problem (Consult low back pain, last seen in 02/2020) 03/11/2024 Travel 01/08/2024 Travel from Last 3 Months Social History Tobacco Use Types Packs/Day Years Used Date Smoking Tobacco: Never Passive Smoke Exposure: Past Smokeless Tobacco: Never Tobacco Cessation:Counseling Given: Yes Comments:parents smoked Alcohol Use Standard Drinks/Week Comments [...] Sign Reading Time Taken Comments Blood Pressure 155/82 03/11/2024 10:33 AM CDT Pulse 73 03/11/2024 10:33 AM CDT Temperature 36.7 ??C (98.1 ??F) 03/11/2024 10:33 AM C DT Respiratory Rate 16 04/21/2007 8:00 AM CDT Oxygen Saturation 99% 03/11/2024 10:33 AM CDT Inhaled Oxygen Concentration - - Weight 76.9 kg (169 lb 9.6 oz) 03/11/2024 10:33 AM CDT Height 151.5 cm (4' 11.65) 11/02/2018 9:[address] Body Mass Index 33.52 11/02/2018 9:42 AM COVER OPERATOR Plan of Treatment Upcoming Encounters Date Type Department Care Team (Late st Contact Info) Description 05/15/2024 10:40 AM CDT Office Visit [facility] [address] [place] [address] Navjot Dadren MD [address] [place] [address] Health Maintenance Due Date Last Done Comments [...] on same day) for age 18+ 11/02/2019 11/02/2018, 09/07/2017 COVID-19 vaccine series ( season) 2023 10/26/2021, 12/08/2020, 11/17/2020 Influenza for age 65+ 05/12/2024 Medical Devices Implanted Type Area Fashion Buyer Device Identifier Shelf Expiration Date Model / Serial / Lot [id number] spacer Olayinka/Canclls 8mm P Lordotic Acf Fd [id number] [[id number]] Implanted:Qty: 1 on 04/19/2007 at [facility] Explanted:at [facility] (Quantity not on file) Spine Musculoskeletal Transplant 02/14/2010 [id number]# / [id number] / [id number] spacer Olayinka/Canclls 9mm P Lordotic Acf Fd [id number] [[id number]] Implanted:Qty: 1 on 04/19/2007 at [facility] Explanted:at [facility] (Quantity not on file) Spine Musculoskeletal Transplant 12/08/2009 [id number]# / [id number] / Plate Cerv 34mm 2 Level Ant Sp Reflex Hybrid - [id number] Implanted:Qty: 1 on 04/19/2007 at [facility] Spine [employer] [id number] / / Screw Bone 4.0x14mm Va-Sd Sp Reflex Hybrid - [id number] Implanted:Qty: 6 on 04/19/2007 at [facility] Spine [employer] [id number] / / Advance Directives * Full Code (Latest Code Status on File) Date Activated Date Inactivated Comments 04/19/2007 11:32 AM 04/21/2007 3:36 PM Care Teams Pie Filler Relationship Specialty Start Date End Date Augie Haney MD [address] [place] [address] PCP - General 04/13/07
--- OUTSIDE RECORDS SUMMARY | 2024-03-11 12:42 | XMS_ITS | Continuity of Care Document ---
Author Organization [facility] Address [address] [place] [address] Phone Care Team Providers Care Manager Compliance Name Role Phone Edwin RENDON, Amir Unavailable [...] - Active Procedures Procedure Date Office/Outpatient Visit,New, [facility] 2015 Postop followup visit X-ray exam of [...] Copied on Encounter Office/Outpa tient Visit,New, Ceci Sh[facility], [address], [place], [place], [id number], [place] tel:[phone] [facility] Other spondylosis, lumbar region 201 6 Mehbod Amir. [facility], [address] [place] [address] [place] [address], [id number], [place]. tel:[phone] Referring Provider: Navjot Perez, [address], [address]. tel:[phone] Z [facility] [place], [address] [place] [address], [address], tel:[phone] [facility] No Information 7 Panvica Tani. [facility], [address] [place] [address], [address], [id number], [place]. tel:[phone] Referring Provider: [facility] [address] [place], [address]. tel:[phone] Z [facility], [address] [place] [address], [address], [place] tel:[phone] [facility] No Information 7 No Information Referring Provider: Ghosh [facility] [address] [place], [address]. tel:[phone] Office consultation , moderate Z [facility], [address] [place] [address], [address], tel:[phone] [facility] [place] No Information 7 No Information Family History Family Member Type Diagnosis Age At Onset No Information Payers Payer name Insurance type Covered alliance party ID Authoriza tion(s) [employer] [facility] CI [id number] Social History Type Description Quantity Date Captured [...]
--- OUTSIDE RECORDS SUMMARY | 2024-03-11 12:42 | XMS_ITS | Encounter Summary ---
Author Organization [facility] Address [address] [place] [address] Care Team Providers Care Broadcast Systems Engineer Name Role Phone None Reported, Pcp Primary Care Provider Unavail able Reason for Visit * Reason Onset Date Comments Quality 01/09/2024 HTN Encounter Details Date Type Department Care Team (Late st Contact Info) Description 01/09/2024 Clinical Communication Department of Family Medicine, [facility], in [place], [place] [address] [place] [address] Brigette Garcia, RSusyNSusy Quality (HTN) Social History Tobacco Use Types [...] Time PHQ-9 Depression Total Score: 6 05/04/20 7:55 AM CDT documented as of this encounter Care Teams Broadcast Systems Engineer Relationship Specialty Start Date End Date None Reported, Pcp PCP - General Family Medicine 01/09/24 documented as of this encounter
--- OUTSIDE RECORDS SUMMARY | 2024-03-11 12:42 | XMS_ITS | Encounter Summary ---
Author Organization [facility] Address [address] [place] [address] Care Team Providers Care Zoo Director Name Role Phone Danika Ambrocio M.D. Primary Care Provider [phone] Encounter Details Date Type Department Care Team (Late st Contact Info) Description 12/12/2023 Orders Only [facility] PCP [facility] MNT Danika Ambrocio M.D. [address] [place] [address] Screening Mammogram Breast Cancer Social History Tobacco [...] documented as of this encounter Care Teams Zoo Director Relationship Specialty Start Date End Date Danika Ambrocio M.D. [address] [place] [address] PCP - General Family Medicine 11/16/22 01/08/24 documented as of this encounter
--- OUTSIDE RECORDS SUMMARY | 2024-03-11 12:42 | XMS_ITS | Encounter Summary ---
Author Organization [facility] Address [address] [place] [address] Care Team Providers Care Stake Setter Name Role Phone None Reported, Pcp Primary Care Provider Unavail able Reason for Visit * Reason Comments Med Refill Encounter Details Date Type Department Care Team ([facility] st Contact Info) Description 02/01/2024 Refill Department of Family Medicine, [facility], in [place], [place] [address] [place] [address] Danika Ambrocio M.D. [address] [place] [address] Med Refill Social History Tobacco [...] encounter Miscellaneous Notes * Telephone Encounter - Ericka Cortez - 02/01/2024 10:22 AM CDT 90 day supply sent 01/01/24 documented in this encounter Plan of Treatment Not on file documented as of this encounter Visit Diagnoses Diagnosis Hypertension Essential Primary documented in this encounter Additional Health Concerns Assessment Noted Time PHQ-9 Depression Total Score: 6 05/04/20 22 7:55 AM CDT documented as of this encounter Care Teams Stake Setter Relationship Specialty Start Date End Date None Reported, Pcp PCP - General Family Medicine 01/09/24 documented as of this encounter
--- OUTSIDE RECORDS SUMMARY | 2024-03-11 12:42 | XMS_ITS | Clinical Summary ---
Author Organization [facility] Address [address] [place] [address] Care Team Providers Care Mine Supervisor Name Role Phone None Reported, Pcp Primary Care Provider Unavail able Source Comments Patient records contain information from all sites at [facility]. For routine questions regarding patient records, call [phone] during business hours, M-F 8:00 AM - 5:00 PM Central Time. Record requests for emergency care only can be directed to [phone] at any time.[facility] Allergies Active Allergy Reactions Criticality Noted Date [...] following with them through [employer] in [place]. Past medications tried: Zoloft. She reports that this has made her mean and irritable in the past. Effexor: Not effective. Degeneration Disc Lumbar 08/04/2014 Overview: She follows with insurance healthcare consultant which has been helpful. She receives 60 tablets of tramadol up to every month to help with chronic low back pain. Resolved Problems Problem Noted Date Diagnosed Date Resolved Date Fatigue 09/20/2022 11/18/2022 Encounters Date Type Department Care Team Description 02/01/2024 Refill Department of [facility], [facility], in [place], [place] [address] [place] [phone] Danika Ambrocio M.D. Med Refill 01/09/2024 Clinical Communication Department of [facility], [facility], in [place], [place] [address] [place] [phone] Brigette Garcia R.N. Quality (HTN) 12/29/2023 Refill Department of [facility], [facility], in [place], [place] [address] [place] [phone] Danika Ambrocio M.D. Med Refill 12/28/2023 Refill Department of Family Medicine, [facility], in [place] [address] [facility] [place] [address] Danika Ambrocio M.D. Med Refill 12/12/2023 Orders Only [facility] PCP HL[facility] MNT Danika Ambrocio M.D. Screening Mammogram Breast Cancer from Last 3 Months Immunizations Name Administration [...] Comments Blood Pressure 124/74 11/18/2022 1:16 PM PIANO TECHNICIAN Pulse 76 11/18/2022 1:16 PM PIANO TECHNICIAN Temperature 36.5 ??C (97.7 ??F) 11/18/2022 1:16 PM CS T Respiratory Rate 18 11/18/2022 1:16 PM PIANO TECHNICIAN Oxygen Saturation 99% 08/30/2022 12:33 PM PIANO TECHNICIAN Inhaled Oxygen Concentration - - Weight 72.4 kg (159 lb 9.8 oz) 11/18/2022 1:16 P M PIANO TECHNICIAN Height 150.5 cm (4' 11.25) 11/18/2022 1:[address] Body Mass Index 31.96 11/18/2022 1:16 PM PIANO TECHNICIAN Plan of Treatment Health Maintenance Due Date Last Done Comments Bone Density Scan (Osteoporo sis Screen) 1948 CT Colonography 1950 Colonoscopy 1948 FIT 1948 Visit: Medicare Annual Wellness 1950 Zoster Vaccines (2 of 2) 09/09/2020 07/15/2020 Depression Monitoring (PHQ-9) 09/03/2022 05/04/2022 Mammogram 05/10/2023 05/10/2022 COVID-19 Vaccine ( season) 2023 10/26/2021, 12/08/2020, 11/17/2020 Fall Risk Screen (Annual) 09/11/2023 Creatinine Level (Kidney Fun ction Test) 09/19/2023 09/19/2022, 05/04/2022 Potassium Level 09/19/2023 09/19/2022, 05/04/2022 Sodium Level 09/19/2023 09/19/2022, 05/04/2022 Office Visit for Blood Press ure Check / Re-check 11/19/2023 11/18/2022 Visit: Chronic Disease, age 18+ 11/19/2023 Influenza Vaccine (#1) 2024 Cologuard 06/13/2025 06/13/2022, 06/08/2022 Colorectal Cancer Screening 06/13/2025 Fasting Glucose for Diabetes Screening 09/19/2025 09/19/2022, 05/04/2022 DTaP,Tdap,and Td Vaccines (3 - Td or Tdap) 07/15/2030 07/15/2020, 01/17/2011 Hepatitis B Vaccines Completed 10/02/1992, 04/29/1992, 04/01/1992 Pneumococcal vaccine (65+ years) Completed 07/15/20, 08/14/2019 Hepatitis C Screening Completed 05/04/2022 Medical Devices Implanted Type Area Nursing Clerk Device Identifier Shelf Expiration Date Model / Serial / Lot Knee Implant Knee Implant Bilateral: Knee Shoulder Implant Shoulder Implant Bilateral: Shoulder Spine Implant Spine Implant Neck Procedures Procedure Name Priority Date/Time Associated Diagnosis Comments BASIC METABOLIC PANEL, S/P Routine 09/19/2022 3:11 PM PIANO TECHNICIAN Hypertension Essential Primary COLOGUARD Routine 06/08/2022 10:00 [...] * Basic Metabolic Panel (09/19/2022 3:11 PM PIANO TECHNICIAN) Potassium, P 3.8 3.6 - 5.2 mmol/L 09/19/2022 3:37 PM PIANO TECHNICIAN CNFL Sodium, P 139 135 - 145 mmol/L 09/19/2022 3:37 PM PIANO TECHNICIAN CNFL Chloride, P 104 98 - 107 mmol/L 09/19/2022 3:37 PM PIANO TECHNICIAN CNFL Bicarbonate, P 22 22 - 29 mmol/L 09/19/2022 3:37 PM PIANO TECHNICIAN CNFL Anion Gap, P 13 7 - 15 09/19/2022 3:37 PM PIANO TECHNICIAN CNFL BUN (Blood Urea Nitrogen), P 16 6 - 21 mg/dL 09/19/2022 3:37 PM PIANO TECHNICIAN CNFL Creatinine 0.65 0.59 - 1.04 mg/dL 09/19/2022 3:37 PM PIANO TECHNICIAN CNFL Estimated GFR (eGFR) >90 >=60 mL/min/BSA 09/19/2022 3:37 PM PIANO TECHNICIAN CNFL Comment: Estimated GFR calculated using the 2020 CKD_EPI creatinine equation. Calcium, Total, P 9.5 8.8 - 10.2 mg/dL 09/19/2022 3:37 PM PIANO TECHNICIAN CNFL Glucose, P 138 70 - 140 mg/dL 09/19/2022 3:37 PM PIANO TECHNICIAN CNFL Blood (Blood, Venous) 09/19/2022 3:11 PM PIANO TECHNICIAN 09/19/2022 3:13 PM PIANO TECHNICIAN Gloria Mercado M.D. LAB BLOOD ADD-ON [facility] [address] [place] [address], [facility] CNFL [facility] in [address] [place] [address] * Cologuard-Sent Out Lab (06/08/2022 10:00 AM [...] Amor et al, N Engl J Med 2014;370(14):3743-6788) The normal value (reference range) for this assay is negative. COLOGUARD RE-SCREENING RECOMMENDATION: Periodic colorectal cancer screening is an important part of preventive healthcare for asymptomatic individuals at average risk for colorectal cancer. ??Following a negative Cologuard result, the [place] Cancer Society and U.S. Multi-Society Task Force screening guidelines recommend a Cologuard re-screening interval of 3 years. References: [place] [employer] Guideline for Colorectal Cancer Screening: https://www.cancer.org/cancer/locrp-bbvoyy-ipcfny/detection- diagnosis-staging/acs-recommendations.html.; Fred DK, Benrard CR, Tee AlmeidaK, Colorectal Cancer Screening: Recommendations for Physicians and Patients from the U.S. Multi-Society Task Force on Colorectal Cancer Screening , Am J Gastroenterology 2017; 112:1657-4481. TEST DESCRIPTION: Composite algorithmic analysis of stool [...] Amor et al, N Engl J Med 2014;370(14):1209-5669.) Cologuard may produce a false negative or false positive result (no colorectal cancer or precancerous polyp present at colonoscopy follow up). A negative Cologuard test result does not guarantee the absence of CRC or advanced adenoma (pre-cancer). The current Cologuard screening interval is every 3 years. ([place] Cancer Society and U.S. Multi-Society Task Force). Cologuard performance data in a 10,000 patient pivotal study using colonoscopy as the reference method can be accessed at the following location: www.RORE MED[employer].Mercantila/results. Additional description of the Cologuard test process, warnings and precautions can be found at www.cologuard.com. Stool (Stool) 06/08/2022 10: 00 AM CDT 06/09/2022 1:36 PM CDT Gloria Mercado M.D. LAB BODY FLUIDS AND STOOLS ORDERABLES [address] [place] [address] [employer] [address] [facility], [address] [place] [address] * BI Breast Screening Bilateral with Tomosynthesis [...] ASSESSMENT: BI-RADS: 1: Negative. Gloria Mercado M.D. G BI PROCEDURES * HCV Ab Scrn w/Reflex to HCV PCR, Serum (05/04/2022 9:46 AM CDT) HCV Ab Screen, S Negative Negative 05/04/20 22 4:19 PM CDT ECLR Comment: Biotin has been identified by the social studies teacher as a potential interfering substance. Higher concentrations of biotin may be found in multivitamins, hair/nail supplements, and workout supplements. If the result does not match clinical observations, repeat testing after patient refrains from the use of supplements for at least 12 hours. Blood (Blood, Venous) 05/04/2022 9:46 AM CDT 05/04/2022 2:36 PM CDT Narrative [facility] - 05/04/2022 4:19 PM CDT Specimen Information: Specimen ID: [id number] Specimen Type: Blood Specimen Collection Start Date: 05/04/2022 ??9:46 AM Specimen Received Date: 05/04/2022 ??2:36 PM Specimen ID: [id number] Specimen Type: Blood Specimen Collection Start Date: 05/04/2022 ??9:46 AM Specimen Received Date: 05/04/2022 ??2:36 PM lGoria Mercado M.D. LAB MICROBIOLOGY - BLOOD ORDERABLES [facility] [address] [place] [address], [facility] ECLR [facility] [place] [address] from Last 3 Months or Most Recently Relevant to Health Maintenance Care Teams Mine Supervisor Relationship Specialty Start Date End Date None Reported, Pcp PCP - General Family Medicine 01/09/24
--- OUTSIDE RECORDS SUMMARY | 2024-03-11 12:42 | XMS_ITS | Encounter Summary ---
Author Organization [facility] Address [address] [place] [address] Care Team Providers Care Hull Outfit Supervisor Name Role Phone None Reported, Pcp Primary Care Provider Unavail able Reason for Visit * Reason Onset Date Comments Quality 11/22/2023 HTN Encounter Details Date Type Department Care Team (Late st Contact Info) Description 11/22/2023 Clinical Communication Department of Family Medicine, [facility], in [place], [place] [address] [place] [address] Brigette Garcia, R.N. Quality (HTN) Social History Tobacco Use [...] documented as of this encounter Care Teams Hull Outfit Supervisor Relationship Specialty Start Date End Date None Reported, Pcp PCP - General Family Medicine 01/09/24 documented as of this encounter
--- OUTSIDE RECORDS SUMMARY | 2024-03-11 12:42 | XMS_ITS | Referral Summary ---
Author Organization [place] Address [facility] [place] [address] Care Team Providers Care Advertising Production Manager Name Role Phone Augie Haney MD Primary [...] 178 <200 mg/dL 02/09/2018 6:41 PM CDT [facility] Triglycerides 101 <150 mg/dL 02/09/2018 6:41 PM CDT [facility] Comment:Fasting specimen HDL Cholesterol 59 >49 mg/dL 8 6:41 PM CDT [facility] LDL Cholesterol Calculated 99 <100 mg/dL 02/09/2018 6:41 PM CDT [facility] Comment:Desirable: <100 mg/d l Non HDL Cholesterol 119 <130 mg/dL 02/09/2018 6:41 PM CDT [facility] Blood specimen (specimen) 02/09/2018 12:06 PM CDT 02/09/2018 12:07 PM CDT Payton Rand PA-C LAB - BL OOD ORDERABLES [facility] [address] [place] [address] * (ABNORMAL) Comprehensive metabolic panel (02/09/2018 12:06 PM CDT) [facility] Sodium 140 133 - 144 mmol/L 02/09/2018 6:41 PM CDT [facility] Potassium 4.3 3.4 - 5.3 mmol/L 02/09/2018 6:41 PM CDT [facility] Chloride 107 94 - 109 mmol/L 02/09/2018 6:41 PM CDT [facility] Carbon Dioxide 24 20 - 32 mmol/L 02/09/2018 6:41 PM T [facility] Anion Gap 9 3 - 14 mmol/L 02/09/2018 6:41 PM T [facility] Glucose 97 70 - 99 mg/dL 02/09/2018 6:41 PM T [facility] Comment:Fasting specimen Urea Nitrogen 14 7 - 30 mg/dL 02/09/2018 6:41 PM T [facility] Creatinine 0.62 0.52 - 1.04 mg/dL 02/09/2018 6:41 PM T [facility] GFR Estimate >90 >60 mL/min/1.7 m2 02/09/2018 6:41 PM T [facility] Comment:Non GFR Calc GFR Estimate If Black >90 >60 mL/min/1.7 m2 02/09/2018 6:41 PM T [facility] Comment: GFR Calc Calcium 9.2 8.5 - 10.1 mg/dL 02/09/2018 6:41 PM T [facility] Bilirubin Total 0.1(L) 0.2 - 1.3 mg/dL 02/09/2018 6:41 PM T [facility] Albumin 3.8 3.4 - 5.0 g/dL 02/09/2018 6:41 PM T [facility] Protein Total 7.6 6.8 - 8.8 g/dL 02/09/2018 6:41 PM T [facility] Alkaline Phosphatase 117 40 - 150 U/L 02/09/2018 6:41 PM CDT [facility] ALT 23 0 - 50 U/L 02/09/2018 6:41 PM CDT [facility] AST 21 0 - 45 U/L 02/09/2018 6:41 PM CDT [facility] Blood specimen (specimen) 02/09/2018 12:06 PM CDT 02/09/2018 12:07 PM CDT Payton Rand PA-C LAB - BL OOD ORDERABLES [facility] [address] [place] [address] from Last 3 Months or Most Recently Relevant to Health Maintenance Care Teams Advertising Production Manager Relationship Specialty Start Date End Date Augie Haney MD [facility] [address] [place] [address] PCP - General Emergency Medicine 02/21/22
--- OUTSIDE RECORDS SUMMARY | 2024-03-11 12:42 | XMS_ITS ---
Author Organization [facility] Address [address] [place] [address] Care Team Providers Care Warning Analyst Name Role Phone Unavailable Unavailable Unavailable Surgery Details Not on file Complications Check Surgery Details section. Procedure Estimated Blood Loss Check Surgery Details section. Procedure Findings Check Surgery Details section. Procedure Specimens Taken Check Surgery Details section.
[2024-03-11 14:06] LABS: Free T4 Free Thyroxine* 0.73 ng/dL (0.70-1.85)
[2024-03-11 14:08] LABS: Vitamin B12* 474 pg/mL (243-894)
== END 2024-03-11 12:40 | disposition home or self-care (01) ==
PROVIDERS: PCP Internal Medicine; Visit Provider Psychiatry & Neurology Neurology
DX: R41.3 Other amnesia (principal); F80.89 Other developmental disorders of speech and language; R26.89 Other abnormalities of gait and mobility; R42 Dizziness and giddiness
CPT/HCPCS: 36415; 82607; 84439; 84443

== ENCOUNTER 2024-03-26 10:04 | Outpatient (CLI) | payer MEDICARE, BC, SELFPAY ==
--- OUTSIDE RECORDS SUMMARY | 2024-03-26 10:06 | XMS_ITS | Clinical Summary ---
Author Organization [facility] Address [address] [place] [address] Care Team Providers Care Legal Coordinator Name Role Phone None Reported, Pcp Primary Care Provider Unavail able Source Comments Patient records contain information from all sites at [facility]. For routine questions regarding patient records, call [phone] during business hours, M-F 8:00 AM - 5:00 PM Central Time. Record requests for emergency care only can be directed to [phone] at any time.[facility] Allergies Active Allergy Reactions Criticality Noted Date [...] following with them through [employer] in [place]. Past medications tried: Zoloft. She reports that this has made her mean and irritable in the past. Effexor: Not effective. Degeneration Disc Lumbar 08/04/2014 Overview: She follows with laboratory animal care veterinarian which has been helpful. She receives 60 tablets of tramadol up to every month to help with chronic low back pain. Resolved Problems Problem Noted Date Diagnosed Date Resolved Date Fatigue 09/20/2022 11/18/2022 Encounters Date Type Department Care Team Description 02/01/2024 Refill Department of Family [facility], [facility], in [place], [place] [address] [place] [phone] Danika Ambrocio M.D. Med Refill 01/09/2024 Clinical Communication Department of Family [facility], [facility], in [place], [place] [address] [place] [phone] Brigette Garcia R.N. Quality (HTN) 12/29/2023 Refill Department of Family [facility], [facility], in [place], [place] [address] [place] [phone] Danika Ambrocio M.D. Med Refill 12/28/2023 Refill Department of Family Medicine, [facility], in [place] [address] [facility] [place] [phone] Danika Ambrocio M.D. Med Refill from Last [...] Comments Blood Pressure 124/74 11/18/2022 1:16 PM LOCOMOTIVE FIRER Pulse 76 11/18/2022 1:16 PM LOCOMOTIVE FIRER Temperature 36.5 ??C (97.7 ??F) 11/18/2022 1:16 PM CS T Respiratory Rate 18 11/18/2022 1:16 PM LOCOMOTIVE FIRER Oxygen Saturation 99% 08/30/2022 12:33 PM LOCOMOTIVE FIRER Inhaled Oxygen Concentration - - Weight 72.4 kg (159 lb 9.8 oz) 11/18/2022 1:16 P M LOCOMOTIVE FIRER Height 150.5 cm (4' 11.25) 11/18/2022 1:[address] Body Mass Index 31.96 11/18/2022 1:16 PM LOCOMOTIVE FIRER Plan of Treatment Health Maintenance Due Date [...] Completed 05/04/2022 Medical Devices Implanted Type Area Electrician Underground Device Identifier Shelf Expiration Date Model / Serial / Lot Knee Implant Knee Implant Bilateral: Knee Shoulder Implant Shoulder Implant Bilateral: Shoulder Spine Implant Spine Implant Neck Procedures Procedure Name Priority Date/Time Associated Diagnosis Comments BASIC METABOLIC PANEL, S/P Routine 09/19/2022 3:11 PM LOCOMOTIVE FIRER Hypertension Essential Primary COLOGUARD Routine 06/08/2022 10:00 [...] * Basic Metabolic Panel (09/19/2022 3:11 PM LOCOMOTIVE FIRER) Pathologist [facility] Potassium, P 3.8 3.6 - 5.2 mmol/L 09/19/2022 3:37 PM LOCOMOTIVE FIRER CNFL Sodium, P 139 135 - 145 mmol/L 09/19/2022 3:37 PM LOCOMOTIVE FIRER CNFL Chloride, P 104 98 - 107 mmol/L 09/19/2022 3:37 PM LOCOMOTIVE FIRER CNFL Bicarbonate, P 22 22 - 29 mmol/L 09/19/2022 3:37 PM LOCOMOTIVE FIRER CNFL Anion Gap, P 13 7 - 15 09/19/2022 3:37 PM LOCOMOTIVE FIRER CNFL BUN (Blood Urea Nitrogen), P 16 6 - 21 mg/dL 09/19/2022 3:37 PM LOCOMOTIVE FIRER CNFL Creatinine 0.65 0.59 - 1.04 mg/dL 09/19/2022 3:37 PM LOCOMOTIVE FIRER CNFL Estimated GFR (eGFR) >90 >=60 mL/min/BSA 09/19/2022 3:37 PM LOCOMOTIVE FIRER CNFL Comment: Estimated GFR calculated using the 2020 CKD_EPI creatinine equation. Calcium, Total, P 9.5 8.8 - 10.2 mg/dL 09/19/2022 3:37 PM LOCOMOTIVE FIRER CNFL Glucose, P 138 70 - 140 mg/dL 09/19/2022 3:37 PM LOCOMOTIVE FIRER CNFL Blood (Blood, Venous) 09/19/2022 3:11 PM LOCOMOTIVE FIRER 09/19/2022 3:13 PM LOCOMOTIVE FIRER Gloria Mercado M.D. LAB BLOOD ADD-ON [facility] [address] [place] [address] in [address] [address] * Cologuard-Sent Out Lab (06/08/2022 10:00 AM CDT) [facility] Signature Result Negative Negative 06/13/2022 4:51 PM [...] Amor et al, N Engl J Med 2014;370(14):5420-0528) The normal value (reference range) for this assay is negative. COLOGUARD RE-SCREENING RECOMMENDATION: Periodic colorectal cancer screening is an important part of preventive healthcare for asymptomatic individuals at average risk for colorectal cancer. ??Following a negative Cologuard result, the [place] Cancer Society and U.S. Multi-Society Task Force screening guidelines recommend a Cologuard re-screening interval of 3 years. References: [place] Cancer [employer] Guideline for Colorectal Cancer Screening: https://www.cancer.org/cancer/uwxic-srdlew-azuxqa/detection- diagnosis-staging/acs-recommendations.html.; Fred WILLS, Bernard RUIZ, Tee AlmeidaK, Colorectal Cancer Screening: Recommendations for Physicians and Patients from the U.S. Multi-Society Task Force on Colorectal Cancer Screening , Am J Gastroenterology 2017; 112:0295-2995. TEST DESCRIPTION: Composite algorithmic analysis of stool [...] (Cristela Hyatt al, N Engl J Med 2014;370(14):8742-7432.) Cologuard may produce a false negative or false positive result (no colorectal cancer or precancerous polyp present at colonoscopy follow up). A negative Cologuard test result does not guarantee the absence of CRC or advanced adenoma (pre-cancer). The current Cologuard screening interval is every 3 years. ([place] Cancer Society and U.S. Multi-Society Task Force). Cologuard performance data in a 10,000 patient pivotal study using colonoscopy as the reference method can be accessed at the following location: www.[employer]results. Additional description of the Cologuard test process, warnings and precautions can be found at www.cologCardiva Medicalrd.com. Stool (Stool) 06/08/2022 10: 00 AM CDT 06/09/2022 1:36 PM CDT Gloria Mercado M.D. LAB BODY FLUIDS AND STOOLS ORDERABLES [employer] [address] [place] [address] [employer] [address] [facility], [address] [place] [address] * BI Breast Screening Bilateral with Tomosynthesis [...] Comment: Biotin has been identified by the night warehouse selector as a potential interfering substance. Higher concentrations of biotin may be found in multivitamins, hair/nail supplements, and workout supplements. If the result does not match clinical observations, repeat testing after patient refrains from the use of supplements for at least 12 hours. Blood (Blood, Venous) 05/04/2022 9:46 AM CDT 05/04/2022 2:36 PM CDT Narrative [facility] - 05/04/2022 4:19 PM CDT Specimen Information: Specimen ID: [id number] Specimen Type: Blood Specimen Collection Start Date: 05/04/2022 ??9:46 AM Specimen Received Date: 05/04/2022 ??2:36 PM Specimen ID: [id number] Specimen Type: Blood Specimen Collection Start Date: 05/04/2022 ??9:46 AM Specimen Received Date: 05/04/2022 ??2:36 PM Gloria Mercado M.D. LAB MICROBIOLOGY - BLOOD ORDERABLES [facility] [address] [place] [address], [facility] ECLR [facility] in [place] [address] [place] [address] from Last 3 Months or Most Recently Relevant to Health Maintenance Care Teams Legal Coordinator Relationship Specialty Start Date End Date None Reported, Pcp PCP - General Family Medicine 01/09/24
--- OUTSIDE RECORDS SUMMARY | 2024-03-26 10:06 | XMS_ITS | Referral Summary ---
Author Organization [facility] Address [address] [place] [address] Care Team Providers Care Sinter Press Operator Name Role Phone None Reported, Pcp Primary Care Provider Unavail able Source Comments Patient records contain information from all sites at [facility]. For routine questions regarding patient records, call [phone] during business hours, M-F 8:00 AM - 5:00 PM Central Time. Record requests for emergency care only can be directed to [phone] at any time.[facility] Encounters Date Type Department Care Team Description 02/01/2024 Refill Department of Family [facility], [facility], [address] [phone] Danika Ambrocio M.D. Med Refill 01/09/2024 Clinical Communication Department of [facility], [facility], [address] [phone] Brigette Garcia R.N. Quality (HTN) 12/29/2023 Refill Department of [facility], [facility], [address] [phone] Danika Ambrocio M.D. Med Refill 12/28/2023 Refill Department of [facility], [address] [phone] Danika Ambrocio M.D. Med Refill from Last [...] following with them through [employer] in [place]. Past medications tried: Zoloft. She reports that this has made her mean and irritable in the past. Effexor: Not effective. 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 She receives 60 [...] Comments Blood Pressure 124/74 11/18/2022 1:16 PM SELF STORAGE MANAGER Pulse 76 11/18/2022 1:16 PM SELF STORAGE MANAGER Temperature 36.5 ??C (97.7 ??F) 11/18/2022 1:16 PM CS T Respiratory Rate 18 11/18/2022 1:16 PM SELF STORAGE MANAGER Oxygen Saturation 99% 08/30/2022 12:33 PM SELF STORAGE MANAGER Inhaled Oxygen Concentration - - Weight 72.4 kg (159 lb 9.8 oz) 11/18/2022 1:16 P M SELF STORAGE MANAGER Height 150.5 cm (4' 11.25) 11/18/2022 1:[address] Body Mass Index 31.96 11/18/2022 1:16 PM SELF STORAGE MANAGER Plan of Treatment Not on file Medical Devices Implanted Type Area Washer Repairman Device Identifier Shelf Expiration Date Model / Serial / Lot Knee Implant Knee Implant Bilateral: Knee Shoulder Implant Shoulder Implant Bilateral: Shoulder Spine Implant Spine Implant Neck Procedures Procedure Name Priority Date/Time Associated Diagnosis Comments BASIC METABOLIC PANEL, S/P Routine 09/19/2022 3:11 PM SELF STORAGE MANAGER Hypertension Essential Primary COLOGUARD Routine 06/08/2022 10:00 [...] * Basic Metabolic Panel (09/19/2022 3:11 PM SELF STORAGE MANAGER) Potassium, P 3.8 3.6 - 5.2 mmol/L 09/19/2022 3:37 PM SELF STORAGE MANAGER CNFL Sodium, P 139 135 - 145 mmol/L 09/19/2022 3:37 PM SELF STORAGE MANAGER CNFL Chloride, P 104 98 - 107 mmol/L 09/19/2022 3:37 PM SELF STORAGE MANAGER CNFL Bicarbonate, P 22 22 - 29 mmol/L 09/19/2022 3:37 PM SELF STORAGE MANAGER CNFL Anion Gap, P 13 7 - 15 09/19/2022 3:37 PM SELF STORAGE MANAGER CNFL BUN (Blood Urea Nitrogen), P 16 6 - 21 mg/dL 09/19/2022 3:37 PM SELF STORAGE MANAGER CNFL Creatinine 0.65 0.59 - 1.04 mg/dL 09/19/2022 3:37 PM SELF STORAGE MANAGER CNFL Estimated GFR (eGFR) >90 >=60 mL/min/BSA 09/19/2022 3:37 PM SELF STORAGE MANAGER CNFL Comment: Estimated GFR calculated using the 2020 CKD_EPI creatinine equation. Calcium, Total, P 9.5 8.8 - 10.2 mg/dL 09/19/2022 3:37 PM SELF STORAGE MANAGER CNFL Glucose, P 138 70 - 140 mg/dL 09/19/2022 3:37 PM SELF STORAGE MANAGER CNFL Blood (Blood, Venous) 09/19/2022 3:11 PM SELF STORAGE MANAGER 09/19/2022 3:13 PM SELF STORAGE MANAGER Gloria Mercado M.D. LAB BLOOD ADD-ON [facility] [address] [place] [address], [facility] CNFL [facility] in [address] [address] * Cologuard-Sent Out Lab (06/08/2022 10:00 AM [...] Amor et al, N Engl J Med 2014;370(14):8634-2967) The normal value (reference range) for this assay is negative. COLOGUARD RE-SCREENING RECOMMENDATION: Periodic colorectal cancer screening is an important part of preventive healthcare for asymptomatic individuals at average risk for colorectal cancer. ??Following a negative Cologuard result, the [place] Cancer Society and U.S. Multi-Society Task Force screening guidelines recommend a Cologuard re-screening interval of 3 years. References: [place] Cancer [employer] Guideline for Colorectal Cancer Screening: https://www.cancer.org/cancer/jhrcm-lqyhrx-hbqnhy/detection- diagnosis-staging/acs-recommendations.html.; Fred WILLS, Bernard RUIZ, Tee NIETO, Colorectal Cancer Screening: Recommendations for Physicians and Patients from the U.S. Multi-Society Task Force on Colorectal Cancer Screening , Am J Gastroenterology 2017; 112:7261-0837. TEST DESCRIPTION: Composite algorithmic analysis of stool [...] (Cristela Hyatt al, N Engl J Med 2014;370(14):4494-9745.) Cologuard may produce a false negative or false positive result (no colorectal cancer or precancerous polyp present at colonoscopy follow up). A negative Cologuard test result does not guarantee the absence of CRC or advanced adenoma (pre-cancer). The current Cologuard screening interval is every 3 years. ([place] Cancer Society and U.S. Multi-Society Task Force). Cologuard performance data in a 10,000 patient pivotal study using colonoscopy as the reference method can be accessed at the following location: www.[employer]/results. Additional description of the Cologuard test process, warnings and precautions can be found at www.[employer]. Stool (Stool) 06/08/2022 10: 00 AM CDT 06/09/2022 1:36 PM CDT Gloria Mercado M.D. LAB BODY FLUIDS AND STOOLS ORDERABLES [employer] [address] [place] [address] [employer] [address] [facility], [address] [place] [address] * BI Breast Screening Bilateral with Tomosynthesis [...] Biotin has been identified by the computer lab para professional as a potential interfering substance. Higher concentrations of biotin may be found in multivitamins, hair/nail supplements, and workout supplements. If the result does not match clinical observations, repeat testing after patient refrains from the use of supplements for at least 12 hours. Blood (Blood, Venous) 05/04/2022 9:46 AM CDT 05/04/2022 2:36 PM CDT Narrative [facility] - 05/04/2022 4:19 PM CDT Specimen Information: Specimen ID: [id number] Specimen Type: Blood Specimen Collection Start Date: 05/04/2022 ??9:46 AM Specimen Received Date: 05/04/2022 ??2:36 PM Specimen ID: [id number] Specimen Type: Blood Specimen Collection Start Date: 05/04/2022 ??9:46 AM Specimen Received Date: 05/04/2022 ??2:36 PM Gloria Mercado M.D. LAB MICROBIOLOGY - BLOOD ORDERABLES [facility] [address] [place] [address], [facility] ECLR [facility] [place] [address] from Last 3 Months or Most Recently Relevant to Health Maintenance Care Teams Sinter Press Operator Relationship Specialty Start Date End Date None Reported, Pcp PCP - General Family Medicine 01/09/24
--- OUTSIDE RECORDS SUMMARY | 2024-03-26 10:07 | XMS_ITS | Referral Summary ---
Author Organization [place] Address Pending sale to [facility] [place] [address] Care Team Providers Care Surgeon/President Name Role Phone Augie Haney MD Primary [...] 178 <200 mg/dL 02/09/2018 6:41 PM CDT [facility][1] Triglycerides 101 <150 mg/dL 02/09/2018 6:41 PM CDT [facility][1] Comment:Fasting specimen HDL Cholesterol 59 >49 mg/dL 8 6:41 PM CDT [facility][1] LDL Cholesterol Calculated 99 <100 mg/dL 02/09/2018 6:41 PM CDT [facility][1] Comment:Desirable: <100 mg/d l Non HDL Cholesterol 119 <130 mg/dL 02/09/2018 6:41 PM CDT [facility][1] Blood specimen (specimen) 02/09/2018 12:06 PM CDT 02/09/2018 12:07 PM CDT Payton Rand PA-C LAB - BL OOD ORDERABLES [facility][1] [address] [place] [address] * (ABNORMAL) Comprehensive metabolic panel (02/09/2018 12:06 PM CDT) [facility] Sodium 140 133 - 144 mmol/L 02/09/2018 6:41 PM CDT [facility][1] Potassium 4.3 3.4 - 5.3 mmol/L 02/09/2018 6:41 PM CDT [facility][1] Chloride 107 94 - 109 mmol/L 02/09/2018 6:41 PM CDT [facility][1] Carbon Dioxide 24 20 - 32 mmol/L 02/09/2018 6:41 PM T [facility][1] Anion Gap 9 3 - 14 mmol/L 02/09/2018 6:41 PM T [facility][1] Glucose 97 70 - 99 mg/dL 02/09/2018 6:41 PM T [facility][1] Comment:Fasting specimen Urea Nitrogen 14 7 - 30 mg/dL 02/09/2018 6:41 PM T [facility][1] Creatinine 0.62 0.52 - 1.04 mg/dL 02/09/2018 6:41 PM T [facility][1] GFR Estimate >90 >60 mL/min/1.7 m2 02/09/2018 6:41 PM T [facility][1] Comment:Non GFR Calc GFR Estimate If Black >90 >60 mL/min/1.7 m2 02/09/2018 6:41 PM T [facility][1] Comment: GFR Calc Calcium 9.2 8.5 - 10.1 mg/dL 02/09/2018 6:41 PM T [facility][1] Bilirubin Total 0.1(L) 0.2 - 1.3 mg/dL 02/09/2018 6:41 PM T [facility][1] Albumin 3.8 3.4 - 5.0 g/dL 02/09/2018 6:41 PM T [facility][1] Protein Total 7.6 6.8 - 8.8 g/dL 02/09/2018 6:41 PM T [facility][1] Alkaline Phosphatase 117 40 - 150 U/L 02/09/2018 6:41 PM CDT [facility][1] ALT 23 0 - 50 U/L 02/09/2018 6:41 PM CDT [facility][1] AST 21 0 - 45 U/L 02/09/2018 6:41 PM CDT [facility][1] Blood specimen (specimen) 02/09/2018 12:06 PM CDT 02/09/2018 12:07 PM CDT Payton Rand PA-C LAB - BL OOD ORDERABLES [facility][1] [address] [place] [address] from Last 3 Months or Most Recently Relevant to Health Maintenance Care Teams Surgeon/President Relationship Specialty Start Date End Date Augie Haney MD [facility] [address] [place] [address] PCP - General Emergency Medicine 02/21/22
--- OUTSIDE RECORDS SUMMARY | 2024-03-26 10:07 | XMS_ITS ---
Author Organization [facility] Address [address] [place] [address] Care Team Providers Care Health Care Specialist Name Role Phone Unavailable Unavailable Unavailable Surgery Details Not on file Complications Check Surgery Details section. Procedure Estimated Blood Loss Check Surgery Details section. Procedure Findings Check Surgery Details section. Procedure Specimens Taken Check Surgery Details section.
--- OUTSIDE RECORDS SUMMARY | 2024-03-26 10:07 | XMS_ITS | Continuity of Care Document ---
Author Organization [facility] Address [address] [place] [address] Phone Care Team Providers Care Teacher'S Assistant Name Role Phone Ediwn RENDON, Amir Unavailable Unavailable Allergies, Adverse Reactions, [...] - Active Procedures Procedure Date Office/Outpatient Visit,New, [facility] 2015 Postop followup visit X-ray exam of [...] tient Visit,New, Ceci Sharm[facility], [address], [place], [place], [id number], [place] tel:[phone] [facility] Other spondylosis, lumbar region 201 6 Mehbod Amir. [facility], [address] [place] [address] [place] [address], [id number], [place]. tel:[phone] Referring Provider: Navjot Perez, [address], [address]. tel:[phone] Z [facility] [place], [address] [place] [address], [address], tel:[phone] [facility] No Information 7 Panvica Tani. [facility], [address] [place] [address], [address], [id number], [place]. tel:[phone] Referring Provider: [facility] [address] [place], [address]. tel:[phone] Z [facility], [address] [place] [address], [address], [place] tel:[phone] [facility] No Information 7 No Information Referring Provider: Ghosh [facility] [address] [place], [address]. tel:[phone] Office consultation , moderate Z [facility], [address] [place] [address], [address], tel:[phone] [facility] No Information 7 No Information Family History Family Member Type Diagnosis Age At Onset No Information Payers Payer name Insurance type Covered democrat ID Authoriza tion(s) [employer] [facility] CI [id number] Social History Type Description Quantity Date Captured [...]
--- OUTSIDE RECORDS SUMMARY | 2024-03-26 10:07 | XMS_ITS | Encounter Summary ---
Author Organization [facility] Address [address] [place] [address] Care Team Providers Care Supervisor Rides Name Role Phone Danika Ambrocio M.D. Primary Care Provider Reason for Visit * Reason Comments Med Refill Encounter Details Date Type Department Care Team ([facility] st Contact Info) Description 12/29/2023 Refill Department of Family Medicine, [facility], in [place], [place] [address] [place] [phone] Danika Ambrocio M.D. [address] [place] [address] Med Refill Social History Tobacco [...] as of this encounter Care Teams Supervisor Rides Relationship Specialty Start Date End Date Danika Ambrocio M.D. [address] [place] [address] [place] [phone] PCP - General Family Medicine 11/16/22 01/08/24 documented as of this encounter
--- OUTSIDE RECORDS SUMMARY | 2024-03-26 10:07 | XMS_ITS | Encounter Summary ---
Author Organization [facility] Address [address] [place] [address] Care Team Providers Care Rn Social Services Name Role Phone Danika Ambrocio M.D. Primary Care Provider [phone] Reason for Visit * Reason Comments Med Refill Encounter Details Date Type Department Care Team ([facility] st Contact Info) Description 12/28/2023 Refill Department of Family Medicine, [facility], in [place], [place] [address] [place] [phone] Danika Ambrocio M.D. [address] [place] [address] Med Refill Social History Tobacco [...] documented as of this encounter Care Teams Rn Social Services Relationship Specialty Start Date End Date Danika Ambrocio M.D. [address] [place] [address] [place] [phone] PCP - General Family Medicine 11/16/22 01/08/24 documented as of this encounter
--- OUTSIDE RECORDS SUMMARY | 2024-03-26 10:07 | XMS_ITS | Encounter Summary ---
Author Organization [facility] Address [address] [place] [address] Care Team Providers Care Shake Maker Name Role Phone None Reported, Pcp Primary Care Provider Unavail able Reason for Visit * Reason Onset Date Comments Quality 11/22/2023 HTN Encounter Details Date Type Department Care Team (Late st Contact Info) Description 11/22/2023 Clinical Communication Department of Family Medicine, [facility], in [place], [place] [address] [place] [address] Brigette Garcia, R.N. Quality (HTN) Social History [...] documented as of this encounter Care Teams Shake Maker Relationship Specialty Start Date End Date None Reported, Pcp PCP - General Family Medicine 01/09/24 documented as of this encounter
--- OUTSIDE RECORDS SUMMARY | 2024-03-26 10:07 | XMS_ITS | Clinical Summary ---
Author Organization [place] Address [facility] [place] [address] Care Team Providers Care Power Equipment Mechanics Instructor Name Role Phone Augie Haney MD Primary [...] <200 mg/dL 02/09/2018 6:[address] [facility] Triglycerides 101 <150 mg/dL 02/09/2018 6:[address] [facility] Comment:Fasting specimen HDL Cholesterol 59 >49 mg/dL 8 6:[address] [facility] LDL Cholesterol Calculated 99 <100 mg/dL 02/09/2018 6:[address] [facility] Comment:Desirable: <100 mg/d l Non HDL Cholesterol 119 <130 mg/dL 02/09/2018 6:[address] [facility] Blood specimen (specimen) 02/09/2018 12:06 PM CDT 02/09/2018 12:07 PM CDT Payton Rand PA-C LAB - BL OOD ORDERABLES [facility] [address] [place] [address] * (ABNORMAL) Comprehensive metabolic panel (02/09/2018 12:06 PM CDT) Sodium 140 133 - 144 mmol/L 02/09/2018 6:[address] [facility] Potassium 4.3 3.4 - 5.3 mmol/L 02/09/2018 6:[address] [facility] Chloride 107 94 - 109 mmol/L 02/09/2018 6:[facility] Carbon Dioxide 24 20 - 32 mmol/L 02/09/2018 6:[address] [facility] Anion Gap 9 3 - 14 mmol/L 02/09/2018 6:41 PM [facility] Glucose 97 70 - 99 mg/dL 02/09/2018 6:[address] [facility] Comment:Fasting specimen Urea Nitrogen 14 7 - 30 mg/dL 02/09/2018 6:[address] [facility] Creatinine 0.62 0.52 - 1.04 mg/dL 02/09/2018 6:[address] [facility] GFR Estimate >90 >60 mL/min/1.7 m2 02/09/2018 6:[address] [facility] Comment:Non GFR Calc GFR Estimate If Black >90 >60 mL/min/1.7 m2 02/09/2018 6:[address] [facility] Comment: GFR Calc Calcium 9.2 8.5 - 10.1 mg/dL 02/09/2018 6:[address] [facility] Bilirubin Total 0.1(L) 0.2 - 1.3 mg/dL 02/09/2018 6:[address] [facility] Albumin 3.8 3.4 - 5.0 g/dL 02/09/2018 6:[address] [facility] Protein Total 7.6 6.8 - 8.8 g/dL 02/09/2018 6:[address] [facility] Alkaline Phosphatase 117 40 - 150 U/L 02/09/2018 6:[address] [facility] ALT 23 0 - 50 U/L 02/09/2018 6:[address] [facility] AST 21 0 - 45 U/L 02/09/2018 6:[address] [facility] Blood specimen (specimen) 02/09/2018 12:06 PM CDT 02/09/2018 12:07 PM CDT Payton Rand PA-C LAB - BL OOD ORDERABLES [facility] [address] [place] [address] from Last 3 Months or Most Recently Relevant to Health Maintenance Care Teams Power Equipment Mechanics Instructor Relationship Specialty Start Date End Date Augie Haney MD [facility] [address] [place] [address] PCP - General Emergency Medicine 02/21/22
--- OUTSIDE RECORDS SUMMARY | 2024-03-26 10:07 | XMS_ITS | Clinical Summary ---
Author Organization [employer] [facility] Address [place], [place] [address] Care Team Providers Care Line Locator Name Role Phone Augie Haney MD Primary [...] Description 03/11/2024 11:45 AM CDT Ancillary Procedure [address] [address] 03/11/2024 11:30 AM CDT Ancillary Procedure [facility] [address] [place] [address] 03/11/2024 10:00 AM CDT Office Visit [address] [address] Navjot Darden MD Musculoskeletal Problem (Consult low [...] Body Mass Index 33.52 11/02/2018 9:42 AM CRM MARKETING ANALYST Plan of Treatment Upcoming Encounters Date Type Department Care Team (Late st Contact Info) Description 03/26/2024 10:20 AM CDT Office Visit [facility] [address] [place] [address] Navjot Darden MD [address] [place] [address] Arrived 05/15/2024 10:40 AM CDT Office Visit [facility] [address] [place] [address] Navjot Darden MD [address] [place] [address] Health Maintenance Due Date Last Done Comments [...] 65+ 05/12/2024 Medical Devices Implanted Type Area Ironworker Machine Operator Device Identifier Shelf Expiration Date Model / Serial / Lot [id number] spacer Olayinka/Canclls 8mm P Lordotic Acf Fd [id number] [[id number]] Implanted:Qty: 1 on 04/19/2007 at [facility] Explanted:at [facility] (Quantity not on file) Spine Musculoskeletal Transplant 02/14/2010 [id number]# / [id number] / [id number] spacer Olayinka/Canclls 9mm P Lordotic Acf Fd [id number] [[id number]] Implanted:Qty: 1 on 04/19/2007 at [facility] Explanted:at [facility] (Quantity not on file) Spine Musculoskeletal Transplant 12/08/2009 [id number]# / [id number] 99 / Plate Cerv 34mm 2 Level Ant Sp Reflex Hybrid - [id number] Implanted:Qty: 1 on 04/19/2007 at [facility] Spine [employer] [id number] / / Screw Bone 4.0x14mm Va-Sd Sp Reflex Hybrid - [id number] Implanted:Qty: 6 on 04/19/2007 at [facility] Spine [employer] [id number] / / Procedures Procedure Name Priority Date/Time Associated Diagnosis Comments AMB EPIDURAL STEROID INJECTION Routine 03/26/2024 8:02 AM CDT DDD (degenerative disc disease), lumbar Lumbar radiculopathy Lumbar facet arthropathy XR SPINE CERVICAL 3 VIEWS Routine 03/11/2024 [...] 11:32 AM 04/21/2007 3:36 PM Care Teams Line Locator Relationship Specialty Start Date End Date Augie Haney MD [address] [place] [address] PCP - General 04/13/07
--- OUTSIDE RECORDS SUMMARY | 2024-03-26 10:07 | XMS_ITS | Encounter Summary ---
Author Organization [facility] Address [address] [place] [address] Care Team Providers Care Flight Test Shop Mechanic Name Role Phone None Reported, Pcp Primary Care Provider Unavail able Reason for Visit * Reason Comments Med Refill Encounter Details Date Type Department Care Team ([facility] st Contact Info) Description 02/01/2024 Refill Department of Family Medicine, [facility], in [place], [place] [address] [place] [address] Danika Ambrocio M.D. [address] [place] [address] Med Refill Social History Tobacco [...] documented as of this encounter Care Teams Flight Test Shop Mechanic Relationship Specialty Start Date End Date None Reported, Pcp PCP - General Family Medicine 01/09/24 documented as of this encounter
--- OUTSIDE RECORDS SUMMARY | 2024-03-26 10:07 | XMS_ITS | Encounter Summary ---
Author Organization [facility] Address [address] [place] [address] Care Team Providers Care Occupational Psychologist Name Role Phone None Reported, Pcp Primary Care Provider Unavail able Reason for Visit * Reason Onset Date Comments Quality 01/09/2024 HTN Encounter Details Date Type Department Care Team (Late st Contact Info) Description 01/09/2024 Clinical Communication Department of Family Medicine, [facility] [place], in [place], [place] [address] [place] [address] Brigette Garcia, RSusyNSusy Quality (HTN) Social History [...] documented as of this encounter Care Teams Occupational Psychologist Relationship Specialty Start Date End Date None Reported, Pcp PCP - General Family Medicine 01/09/24 documented as of this encounter
== END 2024-03-26 10:05 | disposition home or self-care (01) ==
LOC: INJ CL 10:05
PROVIDERS: PCP Internal Medicine; Visit Provider Family Medicine
DX: M54.16 Radiculopathy, lumbar region (principal); M51.36 Other intervertebral disc degeneration, lumbar region
CPT/HCPCS: 62323; J0702; Q9966

== ENCOUNTER 2024-03-29 09:52 | Outpatient (CLI) | payer MEDICARE, BC, SELFPAY ==
--- OUTSIDE RECORDS SUMMARY | 2024-03-29 09:55 | XMS_ITS | Encounter Summary ---
Author Organization [facility] Address [address] [place] [address] Care Team Providers Care Perl Developer Name Role Phone None Reported, Pcp Primary Care Provider Unavail able Reason for Visit * Reason Onset Date Comments Quality 01/09/2024 HTN Encounter Details Date Type Department Care Team (Late st Contact Info) Description 01/09/2024 Clinical Communication Department of Family Medicine, [facility], in [place], [place] [address] [place] [address] Brigette Garcia, RSusyNSusy Quality (HTN) Social History [...] documented as of this encounter Care Teams Perl Developer Relationship Specialty Start Date End Date None Reported, Pcp PCP - General Family Medicine 01/09/24 documented as of this encounter
--- OUTSIDE RECORDS SUMMARY | 2024-03-29 09:55 | XMS_ITS | Clinical Summary ---
Author Organization [facility] Address [address] [place] [address] Care Team Providers Care Play Leader Name Role Phone None Reported, Pcp Primary Care Provider Unavail able Source Comments Patient records contain information from all sites at [facility]. For routine questions regarding patient records, call [phone] during business hours, M-F 8:00 AM - 5:00 PM Central Time. Record requests for emergency care only can be directed to [phone] at any time.[facility] Allergies Active Allergy Reactions Criticality Noted [...] following with them through [employer] in [place]. Past medications tried: Zoloft. She reports that this has made her mean and irritable in the past. Effexor: Not effective. 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 She receives 60 tablets of tramadol up to every month to help with chronic low back pain. Resolved Problems Problem Noted Date Diagnosed Date Resolved Date Fatigue 09/20/2022 11/18/2022 Encounters Date Type Department Care Team Description 02/01/2024 Refill Department of Family [facility], in [place], [place] [address] [place] [address] Danika Ambrocio M.D. Med Refill 01/09/2024 Clinical Communication Department of Family [facility], [facility], in [place], [place] [address] [place] [phone] Brigette Garcia R.N. Quality (HTN) 12/29/2023 Refill Department of Family [facility], [facility], in [place], [place] [address] [place] [phone] Ayuob, Mysoon M, M.D. Med Refill from Last 3 Months [...] Comments Blood Pressure 124/74 11/18/2022 1:16 PM CRIMINAL INVESTIGATOR Pulse 76 11/18/2022 1:16 PM CRIMINAL INVESTIGATOR Temperature 36.5 ??C (97.7 ??F) 11/18/2022 1:16 PM CS T Respiratory Rate 18 11/18/2022 1:16 PM CRIMINAL INVESTIGATOR Oxygen Saturation 99% 08/30/2022 12:33 PM CRIMINAL INVESTIGATOR Inhaled Oxygen Concentration - - Weight 72.4 kg (159 lb 9.8 oz) 11/18/2022 1:16 P M CRIMINAL INVESTIGATOR Height 150.5 cm (4' 11.25) 11/18/2022 1:[address] Body Mass Index 31.96 11/18/2022 1:16 PM CRIMINAL INVESTIGATOR Plan of Treatment Health Maintenance Due Date [...] Completed 05/04/2022 Medical Devices Implanted Type Area Weatherstrip Machine Operator Device Identifier Shelf Expiration Date Model / Serial / Lot Knee Implant Knee Implant Bilateral: Knee Shoulder Implant Shoulder Implant Bilateral: Shoulder Spine Implant Spine Implant Neck Procedures Procedure Name Priority Date/Time Associated Diagnosis Comments BASIC METABOLIC PANEL, S/P Routine 09/19/2022 3:11 PM CRIMINAL INVESTIGATOR Hypertension Essential Primary COLOGUARD Routine 06/08/2022 10:00 [...] * Basic Metabolic Panel (09/19/2022 3:11 PM CRIMINAL INVESTIGATOR) Potassium, P 3.8 3.6 - 5.2 mmol/L 09/19/2022 3:37 PM CRIMINAL INVESTIGATOR CNFL Sodium, P 139 135 - 145 mmol/L 09/19/2022 3:37 PM CRIMINAL INVESTIGATOR [facility] Chloride, P 104 98 - 107 mmol/L 09/19/2022 3:37 PM CRIMINAL INVESTIGATOR CNFL Bicarbonate, P 22 22 - 29 mmol/L 09/19/2022 3:37 PM CRIMINAL INVESTIGATOR CN[facility] Anion Gap, P 13 7 - 15 09/19/2022 3:37 PM CRIMINAL INVESTIGATOR CNFL BUN (Blood Urea Nitrogen), P 16 6 - 21 mg/dL 09/19/2022 3:37 PM CRIMINAL INVESTIGATOR [facility] Creatinine 0.65 0.59 - 1.04 mg/dL 09/19/2022 3:37 PM CRIMINAL INVESTIGATOR CN[facility] Estimated GFR (eGFR) >90 >=60 mL/min/BSA 09/19/2022 3:37 PM CRIMINAL INVESTIGATOR [facility] Comment: Estimated GFR calculated using the 2020 CKD_EPI creatinine equation. Calcium, Total, P 9.5 8.8 - 10.2 mg/dL 09/19/2022 3:37 PM CRIMINAL INVESTIGATOR CN[facility] Glucose, P 138 70 - 140 mg/dL 09/19/2022 3:37 PM CRIMINAL INVESTIGATOR CN[facility] Blood (Blood, Venous) 09/19/2022 3:11 PM CRIMINAL INVESTIGATOR 09/19/2022 3:13 PM CRIMINAL INVESTIGATOR Gloria Mercado M.D. LAB BLOOD ADD-ON [facility] [address] [place] [address], [facility] CNFL [facility] in [address] [address] * Cologuard-Sent Out Lab (06/08/2022 10:00 AM CDT) Result Negative Negative 06/13/2022 4:51 PM CDT [facility] Comment: NEGATIVE TEST RESULT. A negative Cologuard [...] Amor et al, N Engl J Med 2014;370(14):9221-9786) The normal value (reference range) for this assay is negative. COLOGUARD RE-SCREENING RECOMMENDATION: Periodic colorectal cancer screening is an important part of preventive healthcare for asymptomatic individuals at average risk for colorectal cancer. ??Following a negative Cologuard result, the [place] Cancer Society and U.S. Multi-Society Task Force screening guidelines recommend a Cologuard re-screening interval of 3 years. References: [place] [employer] Guideline for Colorectal Cancer Screening: https://www.cancer.org/cancer/caogw-itkfkk-hrhvpp/detection- diagnosis-staging/acs-recommendations.html.; Fred WILLS, Bernard RUIZ, Tee AlmeidaK, Colorectal Cancer Screening: Recommendations for Physicians and Patients from the U.S. Multi-Society Task Force on Colorectal Cancer Screening , Am J Gastroenterology 2017; 112:6035-3223. TEST DESCRIPTION: Composite algorithmic analysis of stool [...] (Cristela Hyatt al, N Engl J Med 2014;370(14):3928-8373.) Cologuard may produce a false negative or false positive result (no colorectal cancer or precancerous polyp present at colonoscopy follow up). A negative Cologuard test result does not guarantee the absence of CRC or advanced adenoma (pre-cancer). The current Cologuard screening interval is every 3 years. ([place] Cancer Society and U.S. Multi-Society Task Force). Cologuard performance data in a 10,000 patient pivotal study using colonoscopy as the reference method can be accessed at the following location: www.[employer]/results. Additional description of the Cologuard test process, warnings and precautions can be found at www.EdfolioogPicosunrd.com. Stool (Stool) 06/08/2022 10: 00 AM CDT 06/09/2022 1:36 PM CDT Gloria Mercado M.D. LAB BODY FLUIDS AND STOOLS ORDERABLES Performing Organization Address City/State/[facility] Co de Phone Number [employer] [address] [place] [address] [employer] [address] [facility], [address] [place] [address] * BI Breast Screening Bilateral with Tomosynthesis [...] Comment: Biotin has been identified by the senior corporate accountant as a potential interfering substance. Higher concentrations of biotin may be found in multivitamins, hair/nail supplements, and workout supplements. If the result does not match clinical observations, repeat testing after patient refrains from the use of supplements for at least 12 hours. Blood (Blood, Venous) 05/04/2022 9:46 AM CDT 05/04/2022 2:36 PM CDT Narrative [facility] - 05/04/2022 4:19 PM CDT Specimen Information: Specimen ID: [id number] Specimen Type: Blood Specimen Collection Start Date: 05/04/2022 ??9:46 AM Specimen Received Date: 05/04/2022 ??2:36 PM Specimen ID: [id number] Specimen Type: Blood Specimen Collection Start Date: 05/04/2022 ??9:46 AM Specimen Received Date: 05/04/2022 ??2:36 PM Gloria Mercado M.D. LAB MICROBIOLOGY - BLOOD ORDERABLES [facility] [address] [place] [address], [place] ECLR [facility] in [place] [address] [place] [address] from Last 3 Months or Most Recently Relevant to Health Maintenance Care Teams Play Leader Relationship Specialty Start Date End Date None Reported, Pcp PCP - General Family Medicine 01/09/24
--- OUTSIDE RECORDS SUMMARY | 2024-03-29 09:55 | XMS_ITS ---
Author Organization [facility] Address [address] [place] [address] Care Team Providers Care Preconstruction Manager Name Role Phone Unavailable Unavailable Unavailable Surgery Details Not on file Complications Check Surgery Details section. Procedure Estimated Blood Loss Check Surgery Details section. Procedure Findings Check Surgery Details section. Procedure Specimens Taken Check Surgery Details section.
--- OUTSIDE RECORDS SUMMARY | 2024-03-29 09:55 | XMS_ITS | Encounter Summary ---
Author Organization [facility] Address [address] [place] [address] Care Team Providers Care Solution Advisor Name Role Phone None Reported, Pcp Primary Care Provider Unavail able Reason for Visit * Reason Comments Med Refill Encounter Details Date Type Department Care Team ([facility] st Contact Info) Description 02/01/2024 Refill Department of Family Medicine, [facility], in [place], [place] [address] [place] [address] Danika Ambrocio M.D. [address] [place] [address] Med Refill Social History Tobacco [...] documented as of this encounter Care Teams Solution Advisor Relationship Specialty Start Date End Date None Reported, Pcp PCP - General Family Medicine 01/09/24 documented as of this encounter
--- OUTSIDE RECORDS SUMMARY | 2024-03-29 09:55 | XMS_ITS | Referral Summary ---
Author Organization [facility] Address [address] [place] [address] Care Team Providers Care Wool Shearer Name Role Phone None Reported, Pcp Primary Care Provider Unavail able Source Comments Patient records contain information from all sites at [facility]. For routine questions regarding patient records, call [phone] during business hours, M-F 8:00 AM - 5:00 PM Central Time. Record requests for emergency care only can be directed to [phone] at any time.[facility] Encounters Date Type Department Care Team Description 02/01/2024 Refill Department of Family Medicine, [facility], [address] [phone] Danika Ambrocio M.D. Med Refill 01/09/2024 Clinical Communication Department of Family [facility], [facility], [address] [phone] Brigette Garcia R.N. Quality (HTN) 12/29/2023 Refill Department of Family [facility], [facility], [address] [phone] Danika Ambrocio M.D. Med Refill from Last [...] following with them through [employer] [facility] [place]. Past medications tried: Zoloft. She reports that this has made her mean and irritable in the past. Effexor: Not effective. 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 She receives [...] Comments Blood Pressure 124/74 11/18/2022 1:16 PM REAL ESTATE TEACHER Pulse 76 11/18/2022 1:16 PM REAL ESTATE TEACHER Temperature 36.5 ??C (97.7 ??F) 11/18/2022 1:16 PM CS T Respiratory Rate 18 11/18/2022 1:16 PM REAL ESTATE TEACHER Oxygen Saturation 99% 08/30/2022 12:33 PM REAL ESTATE TEACHER Inhaled Oxygen Concentration - - Weight 72.4 kg (159 lb 9.8 oz) 11/18/2022 1:16 P M REAL ESTATE TEACHER Height 150.5 cm (4' 11.25) 11/18/2022 1:[address] Body Mass Index 31.96 11/18/2022 1:16 PM REAL ESTATE TEACHER Plan of Treatment Not on file Medical Devices Implanted Type Area Matrix Drier Tender Device Identifier Shelf Expiration Date Model / Serial / Lot Knee Implant Knee Implant Bilateral: Knee Shoulder Implant Shoulder Implant Bilateral: Shoulder Spine Implant Spine Implant Neck Procedures Procedure Name Priority Date/Time Associated Diagnosis Comments BASIC METABOLIC PANEL, S/P Routine 09/19/2022 3:11 PM REAL ESTATE TEACHER Hypertension Essential Primary COLOGUARD Routine 06/08/2022 10:00 [...] * Basic Metabolic Panel (09/19/2022 3:11 PM REAL ESTATE TEACHER) Potassium, P 3.8 3.6 - 5.2 mmol/L 09/19/2022 3:37 PM REAL ESTATE TEACHER CNFL Sodium, P 139 135 - 145 mmol/L 09/19/2022 3:37 PM REAL ESTATE TEACHER CNFL Chloride, P 104 98 - 107 mmol/L 09/19/2022 3:37 PM REAL ESTATE TEACHER CNFL Bicarbonate, P 22 22 - 29 mmol/L 09/19/2022 3:37 PM REAL ESTATE TEACHER CNFL Anion Gap, P 13 7 - 15 09/19/2022 3:37 PM REAL ESTATE TEACHER CNFL BUN (Blood Urea Nitrogen), P 16 6 - 21 mg/dL 09/19/2022 3:37 PM REAL ESTATE TEACHER CNFL Creatinine 0.65 0.59 - 1.04 mg/dL 09/19/2022 3:37 PM REAL ESTATE TEACHER CNFL Estimated GFR (eGFR) >90 >=60 mL/min/BSA 09/19/2022 3:37 PM REAL ESTATE TEACHER CNFL Comment: Estimated GFR calculated using the 2020 CKD_EPI creatinine equation. Calcium, Total, P 9.5 8.8 - 10.2 mg/dL 09/19/2022 3:37 PM REAL ESTATE TEACHER CNFL Glucose, P 138 70 - 140 mg/dL 09/19/2022 3:37 PM REAL ESTATE TEACHER CNFL Blood (Blood, Venous) 09/19/2022 3:11 PM REAL ESTATE TEACHER 09/19/2022 3:13 PM REAL ESTATE TEACHER Gloria Mercado M.D. LAB BLOOD ADD-ON [facility] [address] [address], [facility] CNFL [facility] [place] [id number] [place] [address] * Cologuard-Sent Out Lab (06/08/2022 10:00 AM [...] Amor et al, N Engl J Med 2014;370(14):7473-2982) The normal value (reference range) for this assay is negative. COLOGUARD RE-SCREENING RECOMMENDATION: Periodic colorectal cancer screening is an important part of preventive healthcare for asymptomatic individuals at average risk for colorectal cancer. ??Following a negative Cologuard result, the [place] Cancer Society and U.S. Multi-Society Task Force screening guidelines recommend a Cologuard re-screening interval of 3 years. References: [place] Cancer Society Guideline for Colorectal Cancer Screening: https://www.cancer.org/cancer/rjwur-esxdxt-grcong/detection- diagnosis-staging/acs-recommendations.html.; Fred DK, Bernard CR, Tee AlmeidaK, Colorectal Cancer Screening: Recommendations for Physicians and Patients from the U.S. Multi-Society Task Force on Colorectal Cancer Screening , Am J Gastroenterology 2017; 112:7208-0834. TEST DESCRIPTION: Composite algorithmic analysis of stool [...] (Cristela Hyatt al, N Engl J Med 2014;370(14):3182-2573.) Cologuard may produce a false negative or false positive result (no colorectal cancer or precancerous polyp present at colonoscopy follow up). A negative Cologuard test result does not guarantee the absence of CRC or advanced adenoma (pre-cancer). The current Cologuard screening interval is every 3 years. ([place] Cancer Society and U.S. Multi-Society Task Force). Cologuard performance data in a 10,000 patient pivotal study using colonoscopy as the reference method can be accessed at the following location: [email or web address].[email or web address]/results. Additional description of the Cologuard test process, warnings and precautions can be found at [email or web address] [email or web address]. Stool (Stool) 06/08/2022 10: 00 AM CDT 06/09/2022 1:36 PM CDT Gloria Mercado M.D. LAB BODY FLUIDS AND STOOLS ORDERABLES [facility] [address] [place] [address] [address] [facility], [address] [place] [address] * BI Breast Screening Bilateral with Tomosynthesis [...] Comment: Biotin has been identified by the inserter promotional item as a potential interfering substance. Higher concentrations of biotin may be found in multivitamins, hair/nail supplements, and workout supplements. If the result does not match clinical observations, repeat testing after patient refrains from the use of supplements for at least 12 hours. Blood (Blood, Venous) 05/04/2022 9:46 AM CDT 05/04/2022 2:36 PM CDT Narrative [facility]NOTE 3] LAB - 05/04/2022 4:19 PM CDT Specimen Information: Specimen ID: [id number] Specimen Type: Blood Specimen Collection Start Date: 05/04/2022 ??9:46 AM Specimen Received Date: 05/04/2022 ??2:36 PM Specimen ID: [id number] Specimen Type: Blood Specimen Collection Start Date: 05/04/2022 ??9:46 AM Specimen Received Date: 05/04/2022 ??2:36 PM Gloria Mercado M.D. LAB MICROBIOLOGY - BLOOD ORDERABLES [facility]NOTE 3] LAB [address] [place] [address], [facility] ECLR [facility] [place] [address] from Last 3 Months or Most Recently Relevant to Health Maintenance Care Teams Wool Shearer Relationship Specialty Start Date End Date None Reported, Pcp PCP - General Family Medicine 01/09/24
--- OUTSIDE RECORDS SUMMARY | 2024-03-29 09:56 | XMS_ITS | Encounter Summary ---
Author Organization [facility] Address [address] [place] [address] Care Team Providers Care Vascular Technologist Sonographer Name Role Phone Danika Ambrocio M.D. Primary Care Provider [phone] Reason for Visit * Reason Comments Med Refill Encounter Details Date Type Department Care Team ([facility] st Contact Info) Description 12/29/2023 Refill Department of Family Medicine, [facility], in [place], [place] [address] [place] [phone] Danika Ambrocio M.D. [address] [place] [address] Med Refill Social History Tobacco [...] documented as of this encounter Care Teams Vascular Technologist Sonographer Relationship Specialty Start Date End Date Danika Ambrocio M.D. [address] [place] [address] [place] [phone] PCP - General Family Medicine 11/16/22 01/08/24 documented as of this encounter
--- OUTSIDE RECORDS SUMMARY | 2024-03-29 09:56 | XMS_ITS | Encounter Summary ---
Author Organization [facility] Address [address] [place] [address] Care Team Providers Care Cable Coverer Name Role Phone None Reported, Pcp Primary Care Provider Unavail able Reason for Visit * Reason Onset Date Comments Quality 11/22/2023 HTN Encounter Details Date Type Department Care Team (Late st Contact Info) Description 11/22/2023 Clinical Communication Department of Family Medicine, [facility], in [place], [place] [address] [place] [address] Brigette Garcia, R.N. Quality (HTN) Social History [...] documented as of this encounter Care Teams Cable Coverer Relationship Specialty Start Date End Date None Reported, Pcp PCP - General Family Medicine 01/09/24 documented as of this encounter
--- OUTSIDE RECORDS SUMMARY | 2024-03-29 09:56 | XMS_ITS | Clinical Summary ---
Author Organization [facility] Address [place], [place] [address] Care Team Providers Care Regional Operations Manager Name Role Phone Augie Haney MD [...] Encounters Date Type Department Care Team Description 03/26/2024 10:20 AM CDT Office Visit [facility] at [address] [phone] Navjot Darden MD Procedure (L4-5 ILESI) 03/11/2024 11:45 AM CDT Ancillary Procedure [facility] [address] [place] [address] 03/11/2024 11:30 AM CDT Ancillary Procedure [facility] [address] [place] [address] 03/11/2024 10:00 AM CDT Office Visit [facility] [address] [place] [address] Navjot Darden MD Musculoskeletal Problem (Consult low [...] Body Mass Index 33.52 11/02/2018 9:42 AM ACTIONSCRIPT DEVELOPER Plan of Treatment Upcoming Encounters Date Type Department Care Team (Late st Contact Info) Description 05/15/2024 10:40 AM CDT Office Visit [facility] [address] [place] [address] Navjot Darden MD [address] [place] [address] Health Maintenance Due Date Last Done Comments [...] 65+ 05/12/2024 Medical Devices Implanted Type Area Retail Office Manager Device Identifier Shelf Expiration Date Model / Serial / Lot [id number] spacer Olayinka/Canclls 8mm P Lordotic Acf Fd [id number] [[id number]] Implanted:Qty: 1 on 04/19/2007 at [facility] Explanted:at [facility] (Quantity not on file) Spine Musculoskeletal Transplant 02/14/2010 [id number]# / [id number] / [id number] spacer Olayinka/Canclls 9mm P Lordotic Acf Fd [id number] [[id number]] Implanted:Qty: 1 on 04/19/2007 at [facility] Explanted:at [facility] (Quantity not on file) Spine Musculoskeletal Transplant 12/08/2009 [id number]# / [id number] / Plate Cerv 34mm 2 Level Ant Sp Reflex Hybrid - [id number] Implanted:Qty: 1 on 04/19/2007 at [facility] Spine [employer] [id number] / / Screw Bone 4.0x14mm Va-Sd Sp Reflex Hybrid - [id number] Implanted:Qty: 6 on 04/19/2007 at [facility] Spine [employer] [id number] / / Procedures Procedure Name Priority Date/Time Associated Diagnosis Comments AMB EPIDURAL STEROID INJECTION Routine 03/26/2024 12:00 AM CDT DDD (degenerative disc disease), lumbar Lumbar radiculopathy Lumbar facet arthropathy XR SPINE CERVICAL 3 VIEWS Routine 03/11/2024 11:32 AM CDT DDD (degenerative disc disease), cervical S/P cervical spinal fusion Cervical radiculopathy XR SPINE LUMBAR 2 VIEWS Routine 03/11/2024 11:32 AM CDT DDD (degenerative disc disease), lumbar Lumbar radiculopathy from Last 3 Months Results * AMB EPIDURAL STEROID INJECTION (03/26/2024 12:00 AM CDT) Navjot Darden MD NEUROLOGY ORD * XR SPINE CERVICAL 3 VIEWS (03/11/2024 [...] 11:32 AM 04/21/2007 3:36 PM Care Teams Regional Operations Manager Relationship Specialty Start Date End Date Augie Haney MD [address] [place] [address] PCP - General 04/13/07
--- OUTSIDE RECORDS SUMMARY | 2024-03-29 09:56 | XMS_ITS | Clinical Summary ---
Author Organization [place] Address [facility] [place] [address] Care Team Providers Care Meat Molder Name Role Phone Augie Haney MD Primary [...] 178 <200 mg/dL 02/09/2018 6:41 PM CDT [facility] Triglycerides 101 <150 mg/dL 02/09/2018 6:41 PM CDT [facility] Comment:Fasting specimen HDL Cholesterol 59 >49 mg/dL 8 6:41 PM CDT [facility] LDL Cholesterol Calculated 99 <100 mg/dL 02/09/2018 6:41 PM CDT [facility] Comment:Desirable: <100 mg/d l Non HDL Cholesterol 119 <130 mg/dL 02/09/2018 6:41 PM CDT [facility] Blood specimen (specimen) 02/09/2018 12:06 PM CDT 02/09/2018 12:07 PM CDT Payton [place] PA-C LAB - BL OOD ORDERABLES [facility] [address] [place] [address] * (ABNORMAL) Comprehensive metabolic panel (02/09/2018 12:06 PM CDT) Sodium 140 133 - 144 mmol/L 02/09/2018 6:41 PM CDT [facility] Potassium 4.3 3.4 - 5.3 mmol/L 02/09/2018 6:41 PM CDT [facility] Chloride 107 94 - 109 mmol/L 02/09/2018 [facility] Carbon Dioxide 24 20 - 32 mmol/L 02/09/2018 6:41 PM T [facility] Anion Gap 9 3 - 14 mmol/L 02/09/2018 6:41 PM [facility] Glucose 97 70 - 99 mg/dL 02/09/2018 6:41 PM T [facility] Comment:Fasting specimen Urea Nitrogen 14 7 - 30 mg/dL 02/09/2018 6:41 PM T [facility] Creatinine 0.62 0.52 - 1.04 mg/dL 02/09/2018 6:41 PM CDT [facility] GFR Estimate >90 >60 mL/min/1.7 m2 02/09/2018 6:41 PM T [facility] Comment:Non GFR Calc GFR Estimate If Black >90 >60 mL/min/1.7 m2 02/09/2018 6:41 PM T [facility] Comment: GFR Calc Calcium 9.2 8.5 - 10.1 mg/dL 02/09/2018 6:41 PM CDT [facility] Bilirubin Total 0.1(L) 0.2 - 1.3 mg/dL 02/09/2018 6:41 PM T [facility] Albumin 3.8 3.4 - 5.0 g/dL 02/09/2018 6:41 PM T [facility] Protein Total 7.6 6.8 - 8.8 g/dL 02/09/2018 6:41 PM CDT [facility] Alkaline Phosphatase 117 40 - 150 U/L 02/09/2018 6:41 PM T [facility] ALT 23 0 - 50 U/L 02/09/2018 6:41 PM T [facility] AST 21 0 - 45 U/L 02/09/2018 6:41 PM T [facility] Blood specimen (specimen) 02/09/2018 12:06 PM CDT 02/09/2018 12:07 PM CDT Payton [place] PA-C LAB - BL OOD ORDERABLES [facility] [address] [place] [address] from Last 3 Months or Most Recently Relevant to Health Maintenance Care Teams Meat Molder Relationship Specialty Start Date End Date Augie Haney MD [facility] [address] [place] [address] PCP - General Emergency Medicine 02/21/22
--- OUTSIDE RECORDS SUMMARY | 2024-03-29 09:56 | XMS_ITS | Referral Summary ---
Author Organization [place] Address [facility] [place] [address] Care Team Providers Care Packer Sausage And Wiener Name Role Phone Augie Haney MD Primary [...] 178 <200 mg/dL 02/09/2018 6:41 PM CDT [facility] Triglycerides 101 <150 mg/dL 02/09/2018 6:41 PM CDT [facility] Comment:Fasting specimen HDL Cholesterol 59 >49 mg/dL 8 6:41 PM CDT [facility] LDL Cholesterol Calculated 99 <100 mg/dL 02/09/2018 6:41 PM CDT [facility] Comment:Desirable: <100 mg/d l Non HDL Cholesterol 119 <130 mg/dL 02/09/2018 6:41 PM CDT [facility] Blood specimen (specimen) 02/09/2018 12:06 PM CDT 02/09/2018 12:07 PM CDT Payton [place] PA-C LAB - BL OOD ORDERABLES [facility] [address] [place] [address] * (ABNORMAL) Comprehensive metabolic panel (02/09/2018 12:06 PM CDT) [facility] Sodium 140 133 - 144 mmol/L 02/09/2018 6:41 PM CDT [facility] Potassium 4.3 3.4 - 5.3 mmol/L 02/09/2018 6:41 PM CDT [facility] Chloride 107 94 - 109 mmol/L 02/09/2018 6:41 PM CDT [facility] Carbon Dioxide 24 20 - 32 mmol/L 02/09/2018 6:41 PM T [facility] Anion Gap 9 3 - 14 mmol/L 02/09/2018 6:41 PM T [facility] Glucose 97 70 - 99 mg/dL 02/09/2018 6:41 PM T [facility] Comment:Fasting specimen Urea Nitrogen 14 7 - 30 mg/dL 02/09/2018 6:41 PM T [facility] Creatinine 0.62 0.52 - 1.04 mg/dL 02/09/2018 6:41 PM T [facility] GFR Estimate >90 >60 mL/min/1.7 m2 02/09/2018 6:41 PM T [facility] Comment:Non GFR Calc GFR Estimate If Black >90 >60 mL/min/1.7 m2 02/09/2018 6:41 PM T [facility] Comment: GFR Calc Calcium 9.2 8.5 - 10.1 mg/dL 02/09/2018 6:41 PM T [facility] Bilirubin Total 0.1(L) 0.2 - 1.3 mg/dL 02/09/2018 6:41 PM T [facility] Albumin 3.8 3.4 - 5.0 g/dL 02/09/2018 6:41 PM T [facility] Protein Total 7.6 6.8 - 8.8 g/dL 02/09/2018 6:41 PM T [facility] Alkaline Phosphatase 117 40 - 150 U/L 02/09/2018 6:41 PM CDT [facility] ALT 23 0 - 50 U/L 02/09/2018 6:41 PM CDT [facility] AST 21 0 - 45 U/L 02/09/2018 6:41 PM CDT [facility] Blood specimen (specimen) 02/09/2018 12:06 PM CDT 02/09/2018 12:07 PM CDT Payton Rand PA-C LAB - BL OOD ORDERABLES [facility] [address] [place] [address] from Last 3 Months or Most Recently Relevant to Health Maintenance Care Teams Packer Sausage And Wiener Relationship Specialty Start Date End Date Augie Haney MD [facility] [address] [place] [address] PCP - General Emergency Medicine 02/21/22
--- OUTSIDE RECORDS SUMMARY | 2024-03-29 09:56 | XMS_ITS | Continuity of Care Document ---
Author Organization [facility] Address [address] [place] [address] Phone Care Team Providers Care Coverage Analyst Name Role Phone Edwin RENDON, Amir Unavailable [...] - Active Procedures Procedure Date Office/Outpatient Visit,New, [facility] 2015 Postop followup visit X-ray exam of [...] tient Visit,New, [facility], [address], [place], [place], [id number], [place] tel:[phone] [facility] Other spondylosis, lumbar region [address] [facility], [address] [place] [address] [place] [address], [id number], [place]. tel:[phone] Referring Provider: Navjot Perez, [address], [address]. tel:[phone] [facility], [address] [place] [address], [address], tel:[phone] [facility] No Information 7 Panvica Tani. [facility], [address] [place] [address], [address], [id number], [place]. tel:[phone] Referring Provider: [facility] [address] [place], [address]. tel:[phone] Z [facility], [address] [place] [address], [address], [place] tel:[phone] [facility] No Information 7 No Information Referring Provider: Gh[facility] [address] [place], [address]. tel:[phone] Office consultation , moderate Z [facility], [address] [place] [address], [address], tel:[phone] [facility] No Information 7 No Information Family History Family Member Type Diagnosis Age At Onset No Information Payers Payer name Insurance type Covered democrat ID Authoriza tion(s) [employer] [facility] CI [id number] Social History Type Description Quantity Date Captured [...]
--- OUTSIDE RECORDS SUMMARY | 2024-03-29 09:56 | XMS_ITS | Encounter Summary ---
Author Organization [facility] Address [address] [place] [address] Care Team Providers Care Layup Worker Name Role Phone Danika Ambrocio M.D. Primary Care Provider Reason for Visit * Reason Comments Med Refill Encounter Details Date Type Department Care Team ([facility] st Contact Info) Description 12/28/2023 Refill Department of Family Medicine, [facility], in [place], [place] [address] [place] [phone] Danika Ambrocio M.D. [address] [place] [address] Med Refill Social History Tobacco [...] documented as of this encounter Care Teams Layup Worker Relationship Specialty Start Date End Date Danika Ambrocio M.D. [address] [place] [address] [place] [phone] PCP - General Family Medicine 11/16/22 01/08/24 documented as of this encounter
--- NOTE | 2024-03-29 10:15 | CRLHL7_ITS ---
For Patients: As a result of the Century Cures Act, medical imaging exams and procedure reports are released immediately into your electronic medical record. You may view this report before your referring provider. If you have questions, please contact your health care provider. Indication: Memory loss. Technique: Multiplanar, multisequence MRI of the brain was performed without intravenous contrast. Comparison: None relevant available. Findings: The corpus callosum, pituitary gland clivus appear intact. Partially visualized upper cervical spine degeneration and postsurgical hardware. There is no restricted diffusion. No intracranial hemorrhage. The ventricles are proportionate to the cerebral sulci. The 4th ventricle appears midline. The basal cisterns appear patent. No abnormal extra-axial fluid collection identified. Mild parenchymal volume loss. Moderate scattered T2 FLAIR hyperintense foci within the subcortical and periventricular white matter, favored to represent chronic ischemic microvascular disease. There is no intracranial mass, abnormal mass-effect or midline shift identified. Major intracranial vascular flow voids appear grossly intact. Thinning of the ocular lenses. Mild right maxillary sinus mucosal disease. Impression: 1. No acute intracranial process. 2. Moderate chronic ischemic microvascular disease. Dictated by Dawit Carbajal MD @ 03/29/2024 1:03:56 PM (Electronically Signed)
== END 2024-03-29 09:53 | disposition home or self-care (01) ==
LOC: MRI 09:53
PROVIDERS: PCP Internal Medicine; Visit Provider Psychiatry & Neurology Neurology
DX: R41.3 Other amnesia (principal); I67.82 Cerebral ischemia
CPT/HCPCS: 70551

== ENCOUNTER 2024-04-11 10:51 | Outpatient (CLI) | payer MEDICARE, BC, SELFPAY ==
--- OUTSIDE RECORDS SUMMARY | 2024-04-11 11:56 | XMS_ITS | Continuity of Care Document ---
Author Organization [facility] Address [address] [place] [address] Phone Care Team Providers Care Extermination Supervisor Name Role Phone Edwin RENDON, Amir Unavailable [...] - Active Procedures Procedure Date Office/Outpatient Visit,New, [facility] 2015 Postop followup visit X-ray exam of [...] tient Visit,New, Ceci Sharmila[facility], [address], [place], [place], [id number], [place] tel:[phone] [facility] Other spondylosis, lumbar region 201 6 Mehbod Amir. [facility], [address] [place] [address] [place] [address], [id number], [place]. tel:[phone] Referring Provider: Navjot Perez, [address], [address]. tel:[phone] Z [facility], [address] [place] [address], [address], tel:[phone] [facility] No Information 7 Panvica Tani. [facility], [address] [place] [address], [address], [id number], [place]. tel:[phone] Referring Provider: [facility] [place] [address] [place], [address]. tel:[phone] Z [facility], [address] [place] [address], [address], [place] tel:[phone] [facility] No Information 7 No Information Referring Provider: Ghosh [facility] [place] [address] [place], [address]. tel:[phone] Office consultation , moderate Z [facility], [address] [place] [address], [address], tel:[phone] [facility] No Information 7 No Information Family History Family Member Type Diagnosis Age At Onset No Information Payers Payer name Insurance type Covered constitution party ID Authoriza tion(s) [employer] [facility] CI [id number] Social History Type Description Quantity Date Captured [...]
--- OUTSIDE RECORDS SUMMARY | 2024-04-11 11:56 | XMS_ITS | Referral Summary ---
Author Organization [facility] Address [address] [place] [address] Care Team Providers Care Tariff Publishing Agent Name Role Phone None Reported, Pcp Primary Care Provider Unavail able Source Comments Patient records contain information from all sites at [facility]. For routine questions regarding patient records, call [phone] during business hours, M-F 8:00 AM - 5:00 PM Central Time. Record requests for emergency care only can be directed to [phone] at any time.[facility] Encounters Date Type Department Care Team Description 02/01/2024 Refill Department of Family Medicine, [facility], in [address] [address] Danika Ambrocio M.D. Med Refill from Last [...] Date Diagnosed Date Hypertension Essential Primary 05/21/2022 Overview (06/17/2022): She is currently on losartan 100 mg [...] Amlodipine: Fatigue. Foot concerns. Spironolactone:Nausea Anxiety 02/09/2018 Overview (05/21/2022): Xanax uses half tablet nightly. Depression Major One Episode Moderate 02/09/2018 Overview (06/17/2022): On Paxil 20 mg daily for many [...] following with them through [employer] in [place]. Past medications tried: Zoloft. She reports that this has made her mean and irritable in the past. Effexor: Not effective. Degeneration Disc Lumbar 08/04/2014 Overview (05/21/2022): She follows with customer care associate which has been helpful. She receives 60 [...] Comments Blood Pressure 124/74 11/18/2022 1:16 PM CONSTRUCTION CREW MEMBER Pulse 76 11/18/2022 1:16 PM [employer] Temperature 36.5 ??C (97.7 ??F) 11/18/2022 1:16 PM CS T Respiratory Rate 18 11/18/2022 1:16 PM [employer]STRU[employer] Oxygen Saturation 99% 08/30/2022 12:33 PM [employer]BER Inhaled Oxygen Concentration - - Weight 72.4 kg (159 lb 9.8 oz) 11/18/2022 1:16 P M [employer] Height 150.5 cm (4' 11.25) 11/18/2022 1:[address] Body Mass Index 31.96 11/18/2022 1:16 PM [employer]STRUCTION [employer]BER Plan of Treatment Not on file Medical Devices Implanted Type Area Plush Cutter Device Identifier Shelf Expiration Date Model / Serial / Lot Knee Implant Knee Implant Bilateral: Knee Shoulder Implant Shoulder Implant Bilateral: Shoulder Spine Implant Spine Implant Neck Procedures Procedure Name Priority Date/Time Associated Diagnosis Comments BASIC METABOLIC PANEL, S/P Routine 09/19/2022 3:11 PM [employer] Hypertension Essential Primary COLOGUARD Routine 06/08/2022 10:00 [...] * Basic Metabolic Panel (09/19/2022 3:11 PM [employer]) Potassium, P 3.8 3.6 - 5.2 mmol/L 09/19/2022 3:37 PM [employer] CNFL Sodium, P 139 135 - 145 mmol/L 09/19/2022 3:37 PM [employer] CNFL Chloride, P 104 98 - 107 mmol/L 09/19/2022 3:37 PM [employer] CNFL Bicarbonate, P 22 22 - 29 mmol/L 09/19/2022 3:37 PM [employer] CNFL Anion Gap, P 13 7 - 15 09/19/2022 3:37 PM [employer] CNFL BUN (Blood Urea Nitrogen), P 16 6 - 21 mg/dL 09/19/2022 3:37 PM [employer] CNFL Creatinine 0.65 0.59 - 1.04 mg/dL 09/19/2022 3:37 PM [employer] CNFL Estimated GFR (eGFR) >90 >=60 mL/min/BSA 09/19/2022 3:37 PM [employer] CNFL Comment: Estimated GFR calculated using the 2020 CKD_EPI creatinine equation. Calcium, Total, P 9.5 8.8 - 10.2 mg/dL 09/19/2022 3:37 PM [employer] CNFL Glucose, P 138 70 - 140 mg/dL 09/19/2022 3:37 PM [employer] CNFL Blood (Blood, Venous) 09/19/2022 3:11 PM CONSTRUCTION CREW MEMBER 09/19/2022 3:13 PM CONSTRUCTION [employer]BER Gloria Mercado M.D. LAB BLOOD ADD-ON [facility] [address] [place] [address], [facility] CNFL [facility] in [address] [address] * Cologuard-Sent Out Lab (06/08/2022 10:00 AM CDT) Result Negative Negative 06/13/2022 4:51 PM CDT [place] Comment: NEGATIVE TEST RESULT. A negative Cologuard [...] Stacy. et al, N Engl J Med 2014;370(14):5405-2202) The normal value (reference range) for this assay is negative. COLOGUARD RE-SCREENING RECOMMENDATION: Periodic colorectal cancer screening is an important part of preventive healthcare for asymptomatic individuals at average risk for colorectal cancer. ??Following a negative Cologuard result, the [place] Cancer Society and U.S. Multi-Society Task Force screening guidelines recommend a Cologuard re-screening interval of 3 years. References: [place] Cancer Society Guideline for Colorectal Cancer Screening: https://www.cancer.org/cancer/jqjdr-hsmrfr-eipkqf/detection- diagnosis-staging/acs-recommendations.html.; Fred WILLS, Bernard RUIZ, Tee AlmeidaK, Colorectal Cancer Screening: Recommendations for Physicians and Patients from the U.S. Multi-Society Task Force on Colorectal Cancer Screening , Am J Gastroenterology 2017; 112:1076-3592. TEST DESCRIPTION: Composite algorithmic analysis of stool [...] Amor et al, N Engl J Med 2014;370(14):2079-0558.) Cologuard may produce a false negative or false positive result (no colorectal cancer or precancerous polyp present at colonoscopy follow up). A negative Cologuard test result does not guarantee the absence of CRC or advanced adenoma (pre-cancer). The current Cologuard screening interval is every 3 years. ([place] Cancer Society and U.S. Multi-Society Task Force). Cologuard performance data in a 10,000 patient pivotal study using colonoscopy as the reference method can be accessed at the following location: www.[employer]/results. Additional description of the Cologuard test process, warnings and precautions can be found at www.cologAquavit Pharmaceuticalsrd.com. Stool (Stool) 06/08/2022 10: 00 AM CDT 06/09/2022 1:36 PM CDT Gloria Mercado M.D. LAB BODY FLUIDS AND STOOLS ORDERABLES Performing Organization Address City/State/[facility] Co de Phone Number [employer] [address] [place] [address] [employer]LI [employer] [address] [facility], [address] [place] [address] * BI Breast Screening Bilateral with Tomosynthesis [...] Comment: Biotin has been identified by the remelt pan tank operator as a potential interfering substance. Higher concentrations of biotin may be found in multivitamins, hair/nail supplements, and workout supplements. If the result does not match clinical observations, repeat testing after patient refrains from the use of supplements for at least 12 hours. Blood (Blood, Venous) 05/04/2022 9:46 AM CDT 05/04/2022 2:36 PM CDT Narrative [facility] - 05/04/2022 4:19 PM CDT Specimen Information: Specimen ID: [id number] Specimen Type: Blood Specimen Collection Start Date: 05/04/2022 ??9:46 AM Specimen Received Date: 05/04/2022 ??2:36 PM Specimen ID: [id number] Specimen Type: Blood Specimen Collection Start Date: 05/04/2022 ??9:46 AM Specimen Received Date: 05/04/2022 ??2:36 PM Gloria Mercado M.D. LAB MICROBIOLOGY - BLOOD ORDERABLES [facility] [address] [place] [address], [place] ECLR [facility] in [place] [address] [place] [address] from Last 3 Months or Most Recently Relevant to Health Maintenance Care Teams Tariff Publishing Agent Relationship Specialty Start Date End Date None Reported, Pcp PCP - General Family Medicine 01/09/24
--- OUTSIDE RECORDS SUMMARY | 2024-04-11 11:56 | XMS_ITS | Encounter Summary ---
Author Organization [facility] Address [address] [place] [address] Care Team Providers Care Special Education Itinerant Teacher Name Role Phone None Reported, Pcp Primary Care Provider Unavail able Reason for Visit * Reason Onset Date Comments Quality 01/09/2024 HTN Encounter Details Date Type Department Care Team (Late st Contact Info) Description 01/09/2024 Clinical Communication Department of Family Medicine, [facility], in [place], [place] [address] [place] [address] Brigette Garcia, RSusyNSusy Quality (HTN) Social History [...] documented as of this encounter Care Teams Special Education Itinerant Teacher Relationship Specialty Start Date End Date None Reported, Pcp PCP - General Family Medicine 01/09/24 documented as of this encounter
--- OUTSIDE RECORDS SUMMARY | 2024-04-11 11:56 | XMS_ITS | Encounter Summary ---
Author Organization [facility] Address [address] [place] [address] Care Team Providers Care Heat And Vent Aircraft Mechanic Name Role Phone None Reported, Pcp Primary Care Provider Unavail able Reason for Visit * Reason Comments Med Refill Encounter Details Date Type Department Care Team (Late st Contact Info) Description 02/01/2024 Refill Department of Family Medicine, [place] [facility] [facility], in [place], [place] [address] [place] [address] Danika Ambrocio M.D. [address] [place] [address] Med Refill Social History Tobacco [...] documented as of this encounter Care Teams Heat And Vent Aircraft Mechanic Relationship Specialty Start Date End Date None Reported, Pcp PCP - General Family Medicine 01/09/24 documented as of this encounter
--- OUTSIDE RECORDS SUMMARY | 2024-04-11 11:56 | XMS_ITS | Referral Summary ---
Author Organization [place] Address [facility] [place] [address] Care Team Providers Care Executive Office Manager Name Role Phone Augie Haney MD [...] 178 <200 mg/dL 02/09/2018 6:41 PM CDT [facility] Triglycerides 101 <150 mg/dL 02/09/2018 6:41 PM CDT [facility] Comment:Fasting specimen HDL Cholesterol 59 >49 mg/dL 8 6:41 PM CDT [facility] LDL Cholesterol Calculated 99 <100 mg/dL 02/09/2018 6:41 PM CDT [facility] Comment:Desirable: <100 mg/d l Non HDL Cholesterol 119 <130 mg/dL 02/09/2018 6:41 PM CDT [facility] Blood specimen (specimen) 02/09/2018 12:06 PM CDT 02/09/2018 12:07 PM CDT Payton Rand PA-C LAB - BL OOD ORDERABLES [facility] [address] [place] [address] * (ABNORMAL) Comprehensive metabolic panel (02/09/2018 12:06 PM CDT) [facility] Sodium 140 133 - 144 mmol/L 02/09/2018 6:41 PM CDT [facility] Potassium 4.3 3.4 - 5.3 mmol/L 02/09/2018 6:41 PM CDT [facility] Chloride 107 94 - 109 mmol/L 02/09/2018 6:41 PM CDT [facility] Carbon Dioxide 24 20 - 32 mmol/L 02/09/2018 6:41 PM T [facility] Anion Gap 9 3 - 14 mmol/L 02/09/2018 6:41 PM T [facility] Glucose 97 70 - 99 mg/dL 02/09/2018 6:41 PM T [facility] Comment:Fasting specimen Urea Nitrogen 14 7 - 30 mg/dL 02/09/2018 6:41 PM T [facility] Creatinine 0.62 0.52 - 1.04 mg/dL 02/09/2018 6:41 PM T [facility] GFR Estimate >90 >60 mL/min/1.7 m2 02/09/2018 6:41 PM T [facility] Comment:Non GFR Calc GFR Estimate If Black >90 >60 mL/min/1.7 m2 02/09/2018 6:41 PM T [facility] Comment: GFR Calc Calcium 9.2 8.5 - 10.1 mg/dL 02/09/2018 6:41 PM T [facility] Bilirubin Total 0.1(L) 0.2 - 1.3 mg/dL 02/09/2018 6:41 PM T [facility] Albumin 3.8 3.4 - 5.0 g/dL 02/09/2018 6:41 PM T [facility] Protein Total 7.6 6.8 - 8.8 g/dL 02/09/2018 6:41 PM T [facility] Alkaline Phosphatase 117 40 - 150 U/L 02/09/2018 6:41 PM CDT [facility] ALT 23 0 - 50 U/L 02/09/2018 6:41 PM CDT [facility] AST 21 0 - 45 U/L 02/09/2018 6:41 PM CDT [facility] Blood specimen (specimen) 02/09/2018 12:06 PM CDT 02/09/2018 12:07 PM CDT Payton Rand PA-C LAB - BL OOD ORDERABLES [facility] [address] [place] [address] from Last 3 Months or Most Recently Relevant to Health Maintenance Care Teams Executive Office Manager Relationship Specialty Start Date End Date Augie Haney MD [facility] [address] [place] [address] PCP - General Emergency Medicine 02/21/22
--- OUTSIDE RECORDS SUMMARY | 2024-04-11 11:56 | XMS_ITS ---
Author Organization [facility] Address [address] [place] [address] Care Team Providers Care Hospital Nursing Assistant Name Role Phone Unavailable Unavailable Unavailable Surgery Details Not on file Complications Check Surgery Details section. Procedure Estimated Blood Loss Check Surgery Details section. Procedure Findings Check Surgery Details section. Procedure Specimens Taken Check Surgery Details section.
--- OUTSIDE RECORDS SUMMARY | 2024-04-11 11:56 | XMS_ITS | Clinical Summary ---
Author Organization [place] Address [facility] [place] [address] Care Team Providers Care Restaurant Inspector Name Role Phone Augie Haney MD Primary [...] <200 mg/dL 02/09/2018 6:41 PM CDT [facility] Triglycerides 101 <150 mg/dL 02/09/2018 6:41 PM CDT [facility] Comment:Fasting specimen HDL Cholesterol 59 >49 mg/dL 8 6:41 PM CDT [facility] LDL Cholesterol Calculated 99 <100 mg/dL 02/09/2018 6:41 PM CDT [facility] Comment:Desirable: <100 mg/d l Non HDL Cholesterol 119 <130 mg/dL 02/09/2018 6:41 PM CDT [facility] Blood specimen (specimen) 02/09/2018 12:06 PM CDT 02/09/2018 12:07 PM CDT Payton Rand PA-C LAB - BL OOD ORDERABLES [facility] [address] [place] [address] * (ABNORMAL) Comprehensive metabolic panel (02/09/2018 12:06 PM CDT) Sodium 140 133 - 144 mmol/L 02/09/2018 6:41 PM CDT [facility] Potassium 4.3 3.4 - 5.3 mmol/L 02/09/2018 6:41 PM CDT [facility] Chloride 107 94 - 109 mmol/L 02/09/2018 [facility] Carbon Dioxide 24 20 - 32 mmol/L 02/09/2018 6:41 PM T [facility] Anion Gap 9 3 - 14 mmol/L 02/09/2018 6:41 PM [facility] Glucose 97 70 - 99 mg/dL 02/09/2018 6:41 PM T [facility] Comment:Fasting specimen Urea Nitrogen 14 7 - 30 mg/dL 02/09/2018 6:41 PM T [facility] Creatinine 0.62 0.52 - 1.04 mg/dL 02/09/2018 6:41 PM CDT [facility] GFR Estimate >90 >60 mL/min/1.7 m2 02/09/2018 6:41 PM T [facility] Comment:Non GFR Calc GFR Estimate If Black >90 >60 mL/min/1.7 m2 02/09/2018 6:41 PM T [facility] Comment: GFR Calc Calcium 9.2 8.5 - 10.1 mg/dL 02/09/2018 6:41 PM CDT [facility] Bilirubin Total 0.1(L) 0.2 - 1.3 mg/dL 02/09/2018 6:41 PM T [facility] Albumin 3.8 3.4 - 5.0 g/dL 02/09/2018 6:41 PM T [facility] Protein Total 7.6 6.8 - 8.8 g/dL 02/09/2018 6:41 PM CDT [facility] Alkaline Phosphatase 117 40 - 150 U/L 02/09/2018 6:41 PM T [facility] ALT 23 0 - 50 U/L 02/09/2018 6:41 PM T [facility] AST 21 0 - 45 U/L 02/09/2018 6:41 PM T [facility] Blood specimen (specimen) 02/09/2018 12:06 PM CDT 02/09/2018 12:07 PM CDT Payton Rand PA-C LAB - BL OOD ORDERABLES [facility] [address] [place] [address] from Last 3 Months or Most Recently Relevant to Health Maintenance Care Teams Restaurant Inspector Relationship Specialty Start Date End Date Augie Haney MD [facility] [address] [place] [address] PCP - General Emergency Medicine 02/21/22
--- OUTSIDE RECORDS SUMMARY | 2024-04-11 11:56 | XMS_ITS | Clinical Summary ---
Author Organization [facility] Address [address] [place] [address] Care Team Providers Care Promotion Officer Name Role Phone None Reported, Pcp Primary Care Provider Unavail able Source Comments Patient records contain information from all sites at [facility]. For routine questions regarding patient records, call [phone] during business hours, M-F 8:00 AM - 5:00 PM Central Time. Record requests for emergency care only can be directed to [phone] at any time.[facility] Allergies Active Allergy Reactions Criticality [...] following with them through [employer] in [place]. Past medications tried: Zoloft. She reports that this has made her mean and irritable in the past. Effexor: Not effective. Degeneration Disc Lumbar 08/04/2014 Overview (05/21/2022): She follows with direct care counselor which has been helpful. She receives 60 tablets of tramadol up to every month to help with chronic low back pain. Resolved Problems Problem Noted Date Diagnosed Date Resolved Date Fatigue 09/20/2022 11/18/2022 Encounters Date Type Department Care Team Description 02/01/2024 Refill Department of Family Medicine, [facility], in [place] [address] [facility] [place] [address] Danika Ambrocio M.D. Med Refill from Last [...] Comments Blood Pressure 124/74 11/18/2022 1:16 PM UNION ORGANIZER Pulse 76 11/18/2022 1:16 PM UNION ORGANIZER Temperature 36.5 ??C (97.7 ??F) 11/18/2022 1:16 PM CS T Respiratory Rate 18 11/18/2022 1:16 PM UNION ORGANIZER Oxygen Saturation 99% 08/30/2022 12:33 PM UNION ORGANIZER Inhaled Oxygen Concentration - - Weight 72.4 kg (159 lb 9.8 oz) 11/18/2022 1:16 P M [employer]ION ORGANIZER Height 150.5 cm (4' 11.25) 11/18/2022 1:[address] Body Mass Index 31.96 11/18/2022 1:16 PM UNION ORGANIZER Plan of Treatment Health Maintenance Due Date [...] Completed 05/04/2022 Medical Devices Implanted Type Area Loom Fixer Apprentice Device Identifier Shelf Expiration Date Model / Serial / Lot Knee Implant Knee Implant Bilateral: Knee Shoulder Implant Shoulder Implant Bilateral: Shoulder Spine Implant Spine Implant Neck Procedures Procedure Name Priority Date/Time Associated Diagnosis Comments BASIC METABOLIC PANEL, S/P Routine 09/19/2022 3:11 PM UNION ORGANIZER Hypertension Essential Primary COLOGUARD Routine 06/08/2022 10:00 [...] * Basic Metabolic Panel (09/19/2022 3:11 PM UNION ORGANIZER) Pathologist [facility] Potassium, P 3.8 3.6 - 5.2 mmol/L 09/19/2022 3:37 PM UNION ORGANIZER CNFL Sodium, P 139 135 - 145 mmol/L 09/19/2022 3:37 PM UNION ORGAN[employer]ER CNFL Chloride, P 104 98 - 107 mmol/L 09/19/2022 3:37 PM UNION ORGANIZER CNFL Bicarbonate, P 22 22 - 29 mmol/L 09/19/2022 3:37 PM UNION ORGANIZER CNFL Anion Gap, P 13 7 - 15 09/19/2022 3:37 PM UNION ORGANIZER CNFL BUN (Blood Urea Nitrogen), P 16 6 - 21 mg/dL 09/19/2022 3:37 PM UNION ORGANIZER CNFL Creatinine 0.65 0.59 - 1.04 mg/dL 09/19/2022 3:37 PM UNION ORGANIZER CNFL Estimated GFR (eGFR) >90 >=60 mL/min/BSA 09/19/2022 3:37 PM UNION ORGANIZER CNFL Comment: Estimated GFR calculated using the 2020 CKD_EPI creatinine equation. Calcium, Total, P 9.5 8.8 - 10.2 mg/dL 09/19/2022 3:37 PM UNION ORGANIZER CNFL Glucose, P 138 70 - 140 mg/dL 09/19/2022 3:37 PM UNION ORGANIZER CNFL Blood (Blood, Venous) 09/19/2022 3:11 PM UNION ORGANIZER 09/19/2022 3:13 PM UNION ORGANIZER Gloria Mercado M.D. LAB BLOOD ADD-ON [facility] [address] [place] [address], [facility] CNFL [facility] in [address] [address] * Cologuard-Sent Out Lab (06/08/2022 10:00 AM [...] (Cristela Hyatt al, N Engl J Med 2014;370(14):2533-8339) The normal value (reference range) for this assay is negative. COLOGUARD RE-SCREENING RECOMMENDATION: Periodic colorectal cancer screening is an important part of preventive healthcare for asymptomatic individuals at average risk for colorectal cancer. ??Following a negative Cologuard result, the [place] [employer] Society and U.S. Multi-Society Task Force screening guidelines recommend a Cologuard re-screening interval of 3 years. References: [place] [employer] Guideline for Colorectal Cancer Screening: https://www.cancer.org/cancer/hrktn-kzxuya-zrqrbl/detection- diagnosis-staging/acs-recommendations.html.; Fred DK, Bernard RUIZ, Tee AlmeidaK, Colorectal Cancer Screening: Recommendations for Physicians and Patients from the U.S. Multi-Society Task Force on Colorectal Cancer Screening , Am J Gastroenterology 2017; 112:7502-8574. TEST DESCRIPTION: Composite algorithmic analysis of stool [...] (Cristela Hyatt al, N Engl J Med 2014;370(14):8621-4459.) Cologuard may produce a false negative or false positive result (no colorectal cancer or precancerous polyp present at colonoscopy follow up). A negative Cologuard test result does not guarantee the absence of CRC or advanced adenoma (pre-cancer). The current Cologuard screening interval is every 3 years. ([place] [employer] Society and U.S. Multi-Society Task Force). Cologuard performance data in a 10,000 patient pivotal study using colonoscopy as the reference method can be accessed at the following location: www.Getui/results. Additional description of the Cologuard test process, warnings and precautions can be found at www.cologuard.Conversocial. Stool (Stool) 06/08/2022 10: 00 AM CDT 06/09/2022 1:36 PM CDT Gloria Mercado M.D. LAB BODY FLUIDS AND STOOLS ORDERABLES [employer] [address] [place] [address] [address] [facility], [address] [place] [address] * BI Breast Screening Bilateral with Tomosynthesis [...] Comment: Biotin has been identified by the policy and planning manager as a potential interfering substance. Higher concentrations of biotin may be found in multivitamins, hair/nail supplements, and workout supplements. If the result does not match clinical observations, repeat testing after patient refrains from the use of supplements for at least 12 hours. Blood (Blood, Venous) 05/04/2022 9:46 AM CDT 05/04/2022 2:36 PM CDT Narrative [facility] [place] 2[facility] - 05/04/2022 4:19 PM CDT Specimen Information: Specimen ID: [id number] Specimen Type: Blood Specimen Collection Start Date: 05/04/2022 ??9:46 AM Specimen Received Date: 05/04/2022 ??2:36 PM Specimen ID: [id number] Specimen Type: Blood Specimen Collection Start Date: 05/04/2022 ??9:46 AM Specimen Received Date: 05/04/2022 ??2:36 PM Gloria Mercado M.D. LAB MICROBIOLOGY - BLOOD ORDERABLES [facility] [address] [place] [address], [place] ECLR [facility] in [place] [address] [place] [address] from Last 3 Months or Most Recently Relevant to Health Maintenance Care Teams Promotion Officer Relationship Specialty Start Date End Date None Reported, Pcp PCP - General Family Medicine 01/09/24
--- OUTSIDE RECORDS SUMMARY | 2024-04-11 11:56 | XMS_ITS | Clinical Summary ---
Author Organization [employer] [facility] Address [place], [place] [address] Care Team Providers Care Wrapper Hand Name Role Phone Augie Haney MD Primary [...] Encounters Date Type Department Care Team Description 04/04/2024 Transcribe Orders Courage [facility] [address] [facility] [address] [place] [address] Marnie Chatterjee MD 03/26/2024 10:20 AM CDT Office Visit [facility] [address] [place] [address] Navjot Darden MD Procedure (L4-5 ILESI) 03/11/2024 11:45 AM CDT Ancillary Procedure [facility] [address] [place] [address] 03/11/2024 11:30 AM CDT Ancillary Procedure [facility] [address] [place] [address] 03/11/2024 10:00 AM CDT Office Visit [facility] [address] [place] [address] Navjot Darden MD Musculoskeletal Problem (Consult low back pain, last seen in 02/2020) 03/11/2024 Travel from Last 3 Months Social History [...] Body Mass Index 33.52 11/02/2018 9:42 AM PUTTER IN Plan of Treatment Upcoming Encounters Date Type Department Care Team (Late st Contact Info) Description 05/15/2024 10:40 AM CDT Office Visit [facility] [address] [place] [address] Navjot Darden MD [address] [place] [address] Health Maintenance Due Date Last Done Comments [...] 65+ 05/12/2024 Medical Devices Implanted Type Area Cinema Operator Device Identifier Shelf Expiration Date Model / Serial / Lot [id number] spacer Olayinka/Canclls 8mm P Lordotic Acf Fd [id number] [[id number]] Implanted:Qty: 1 on 04/19/2007 at [facility] Explanted:at [facility] (Quantity not on file) Spine Musculoskeletal Transplant 02/14/2010 [id number]# / [id number] / [id number] spacer Olayinka/Canclls 9mm P Lordotic Acf Fd [id number] [[id number]] Implanted:Qty: 1 on 04/19/2007 at [facility] Explanted:at [facility] (Quantity not on file) Spine Musculoskeletal Transplant 12/08/2009 [id number]# / [id number] / Plate Cerv 34mm 2 Level Ant Sp Reflex Hybrid - [id number] Implanted:Qty: 1 on 04/19/2007 at [facility] [id number] / / Screw Bone 4.0x14mm Va-Sd Sp Reflex Hybrid - [id number] Implanted:Qty: 6 on 04/19/2007 at [facility] [id number] / / Procedures Procedure Name Priority Date/Time [...] 11:32 AM 04/21/2007 3:36 PM Care Teams Wrapper Hand Relationship Specialty Start Date End Date Augie Haney MD [address] [place] [address] PCP - General 04/13/07
--- OUTSIDE RECORDS SUMMARY | 2024-04-11 11:56 | XMS_ITS | Encounter Summary ---
Author Organization [facility] Address [address] [place] [address] Care Team Providers Care Staff Internist Office Based Only Name Role Phone None Reported, Pcp Primary Care Provider Unavail able Reason for Visit * Reason Onset Date Comments Quality 11/22/2023 HTN Encounter Details Date Type Department Care Team (Late st Contact Info) Description 11/22/2023 Clinical Communication Department of Family Medicine, [facility], in [place], [place] [address] [place] [address] Brigette Garcia, R.N. Quality (HTN) Social History [...] documented as of this encounter Care Teams Staff Internist Office Based Only Relationship Specialty Start Date End Date None Reported, Pcp PCP - General Family Medicine 01/09/24 documented as of this encounter
== END 2024-04-11 10:52 | disposition home or self-care (01) ==
LOC: NFLDREF 11:54
PROVIDERS: PCP Internal Medicine; Visit Provider Obstetrics & Gynecology
DX: N32.89 Other specified disorders of bladder (principal)
CPT/HCPCS: 87086

== ENCOUNTER 2024-05-07 13:39 | Outpatient (CLI) | payer MEDICARE, BC, SELFPAY ==
--- OUTSIDE RECORDS SUMMARY | 2024-05-07 13:41 | XMS_ITS | Clinical Summary ---
Author Organization [employer] [facility] Address [place], [place] [address] Care Team Providers Care Lacquer Coater Name Role Phone Augie Haney MD Primary [...] Encounters Date Type Department Care Team Description 04/26/2024 Telephone [facility] [address] [place] [address] Navjot Darden MD Pain Management Care Management (change pain med) 04/12/2024 Lab Requisition [facility] [phone] Susanna Jc MD 04/04/2024 Transcribe Orders Courage [facility] [address] [facility] [address] [place] [address] Marnie Chatterjee MD 03/26/2024 10:20 AM CDT Office Visit [facility] at [address] [address] Navjot Darden MD Procedure (L4-5 ILESI) 03/11/2024 11:45 AM CDT Ancillary Procedure [facility] [address] [place] [address] 03/11/2024 11:30 AM CDT Ancillary Procedure [facility] [address] [place] [address] 03/11/2024 10:00 AM CDT Office Visit [facility] [address] [place] [address] Navjot Darden MD Musculoskeletal Problem (Consult low [...] Body Mass Index 33.52 11/02/2018 9:42 AM PHARMACOGNOSIST Plan of Treatment Upcoming Encounters Date Type Department Care Team (Late st Contact Info) Description 05/15/2024 10:40 AM CDT Office Visit [facility] [address] [place] [address] Navjot Darden MD [address] [place] [address] 02/24/2025 9:00 AM CDT Office Visit [facility] [address] [place] [phone] Angela Bergman, PhD, LP [address] [facility] [address] [place] [id number] Health Maintenance Due Date Last Done Comments Tdap 1959 Depression screening for age 12+ 1960 Hepatitis C screening for age 18-79 1966 Tetanus booster 1968 Zoster (shingles) series for age 50+ (1 [...] 65+ 05/12/2024 Medical Devices Implanted Type Area Radio Director Device Identifier Shelf Expiration Date Model / Serial / Lot [id number] spacer Olayinka/Canclls 8mm P Lordotic Acf Fd [id number] [[id number]] Implanted:Qty: 1 on 04/19/2007 at [facility] Explanted:at [facility] (Quantity not on file) Spine Musculoskeletal Transplant 02/14/2010 [id number]# / [id number] 30 / [id number] spacer Olayinka/Canclls 9mm P Lordotic Acf Fd [id number] [[id number]] Implanted:Qty: 1 on 04/19/2007 at [facility] Explanted:at [facility] (Quantity not on file) Spine Musculoskeletal Transplant 12/08/2009 [id number]# / [id number] / Plate Cerv 34mm 2 Level Ant Sp Reflex Hybrid - [id number] Implanted:Qty: 1 on 04/19/2007 at [facility] Spine [facility] [id number] / / Screw Bone 4.0x14mm Va-Sd Sp Reflex Hybrid - [id number] Implanted:Qty: 6 on 04/19/2007 at [facility] Spine [facility] [id number] / / Procedures Procedure Name Priority Date/Time Associated Diagnosis Comments LAB TRACKING EVENT Routine 04/11/2024 10 :40 AM CDT PATH TISSUE EXAM Routine 04/11/2024 10:4 0 AM CDT AMB EPIDURAL STEROID INJECTION Routine 03/26/2024 12:00 AM CDT DDD (degenerative disc disease), lumbar Lumbar radiculopathy Lumbar facet arthropathy XR SPINE CERVICAL 3 VIEWS Routine 03/11/2024 11:32 AM CDT DDD (degenerative disc disease), cervical S/P cervical spinal fusion Cervical radiculopathy XR SPINE LUMBAR 2 VIEWS Routine 03/11/2024 11:32 AM CDT DDD (degenerative disc disease), lumbar Lumbar radiculopathy from Last 3 Months Results * LAB TRACKING EVENT (04/11/2024 10:40 AM CDT) Other (Other) Client Collect / Unknown 04/11/2024 10:40 AM CDT 04/12/2024 3:45 PM CDT Susanna Jc MD LAB BILL ONLY Performing Organization Address City/State/[facility] Co de Phone Number [facility] [address] [place] [address], * PATH TISSUE EXAM (04/11/2024 10:40 AM CDT) Case Report Pathology Report ?Case: [id number] ? Authorizing Provider: ??Susanna Jc MD ?? Collected: ? 04/11/2024 1040 ? Ordering Location: ? [facility] ?Received: ?04/12/2024 1722 ? Pathologist: ? Maude Rdz MD ? Specimens: ?? A) - Vaginal, Mole ? B) - Vulvar Biopsy ? 04/16/2024 2:58 PM CDT [facility] Final Diagnosis A) VAGINA, POSSIBLE MOLE, BIOPSY: 1. Superficial sample of hyperkeratotic squamous epithelium with focal, mild atypia (see comment) 2. A PAS stain for fungal organisms is negative 3. Negative for malignancy B) VULVA, BIOPSY: 1. Lichen sclerosus with superimposed spongiosis and mild atypia 2. A PAS stain for fungal organisms is negative 3. Negative for dysplasia and malignancy 04/16/2024 2:58 PM CDT [facility] Comment A,B) In part A, hyperkeratotic squamous epithelium is present, and the dermal/epidermal interface is missing limiting the evaluation for invasion. The squamous epithelium present has mild atypia, but P53 lacks overexpression. Overall, the findings are most consistent with a reactive etiology. In part B, lichen sclerosus is present with superimposed spongiosis. While basilar p53 expression is present in this biopsy, hyperkeratosis and altered architecture is not seen. The overall pattern (morphology and immunohistochemis try) is favored to be reactive. Due to the limitations in the current biopsies as well as the presence of a visual lesion, topical steroid treatment is recommended with clinical follow-up and consideration of biopsy for any residual/persiste nt lesions. 04/16/2024 2:58 PM CDT [facility] [employer] [facility] Clinical Information Vaginal irritation and a concerning mole 04/16/2024 2:58 PM CDT [facility] Gross Description A) Received in formalin, labeled with the patient's name and A, is a 0.5 x 0.3 cm skin biopsy. There is a 0.4 x 0.3 cm crusted brown-black ??lesion. The specimen is inked blue, bisected and entirely submitted in one cassette. B) Received in formalin, labeled with the patient's name and B, is a 0.3 x 0.2 cm skin punch biopsy excised to a maximum depth of 0.3 cm. The skin surface is smooth and holt-dominguez. ??The specimen is inked green, left intact and entirely submitted in one cassette. SJM 04/12/2024 04/16/2024 2:58 PM CDT [facility] Microscopic Description The final diagnosis is based on microscopic examination of appropriate sections of all specimens. A) p53: Variable moderate staining (negative for overexpression) B) p53: Basilar staining present 04/16/2024 2:58 PM CDT [facility] [employer] [facility] Additional Information Interpreted at [facility] - [address], [place] [address] Immunohistochemis try controls were reviewed and approved by the pathologist during this examination. 04/16/2024 2:58 PM CDT [facility] [employer] [facility] Other VAGINAL SWAB / Unknown 04/11/2024 10:40 AM CDT 04/12/2024 5:22 PM CDT Specimen (specimen) (Vulvar Biopsy) 04/11/2024 10:40 AM CDT 04/12/2024 5:22 PM CDT Susanna Jc MD PATHOLOGY/CYTOLOG Y [facility] [address] [place] [address], [place] * AMB EPIDURAL STEROID INJECTION (03/26/2024 12:00 [...] 11:32 AM 04/21/2007 3:36 PM Care Teams Lacquer Coater Relationship Specialty Start Date End Date Augie Haney MD [address] [place] [address] PCP - General 04/13/07
--- OUTSIDE RECORDS SUMMARY | 2024-05-07 13:41 | XMS_ITS | Continuity of Care Document ---
Author Organization [facility] Address [address] [place] [address] Phone Care Team Providers Care Snap Attacher Name Role Phone Edwin RENDON, Amir Unavailable [...] - Active Procedures Procedure Date Office/Outpatient Visit,New, [facility] 2015 Postop followup visit [...] tient Visit,New, Ceci [facility], [address], [place], [place], [id number], [place] tel:[phone] [facility] Other spondylosis, lumbar region 201 6 Mehbod Amir. [facility], [address] [place] [address] [place] [address], [id number], [place]. tel:[phone] Referring Provider: Navjot Perez, [address], [address]. tel:[phone] Z [facility] [place], [address] [place] [address], [address], tel:[phone] [facility] No Information 7 Panvica Tani. [facility], [address] [place] [address], [address] [place] [address], [id number], [place]. tel:[phone] Referring Provider: [facility] [address] [place], [address]. tel:[phone] Z [facility], [address] [place] [address], [address], [place] tel:[phone] [facility] No Information 7 No Information Referring Provider: Ghosh [facility] [address] [place], [address]. tel:[phone] Office consultation , moderate Z [facility], [address] [place] [address], [address], tel:[phone] [facility] No Information 7 No Information Family History Family Member Type Diagnosis Age At Onset No Information Payers Payer name Insurance type Covered democrat ID Authoriza tion(s) [employer] [facility] CI [id number] Social History Type Description Quantity Date Captured [...]
--- OUTSIDE RECORDS SUMMARY | 2024-05-07 13:42 | XMS_ITS | Referral Summary ---
Author Organization [facility] Address [facility] [place] [address] Care Team Providers Care Director Of Strategic Partnerships Name Role Phone Augie Haney MD Primary [...] 178 <200 mg/dL 02/09/2018 6:41 PM CDT [facility] Triglycerides 101 <150 mg/dL 02/09/2018 6:41 PM CDT [facility] Comment:Fasting specimen HDL Cholesterol 59 >49 mg/dL 8 6:41 PM CDT [facility] LDL Cholesterol Calculated 99 <100 mg/dL 02/09/2018 6:41 PM CDT [facility] Comment:Desirable: <100 mg/d l Non HDL Cholesterol 119 <130 mg/dL 02/09/2018 6:41 PM CDT [facility] Blood specimen (specimen) 02/09/2018 12:06 PM CDT 02/09/2018 12:07 PM CDT Payton Rand PA-C LAB - BL OOD ORDERABLES [facility] [address] [place] [address] * (ABNORMAL) Comprehensive metabolic panel (02/09/2018 12:06 PM CDT) [facility] Sodium 140 133 - 144 mmol/L 02/09/2018 6:41 PM CDT [facility] Potassium 4.3 3.4 - 5.3 mmol/L 02/09/2018 6:41 PM CDT [facility] Chloride 107 94 - 109 mmol/L 02/09/2018 6:41 PM CDT [facility] Carbon Dioxide 24 20 - 32 mmol/L 02/09/2018 6:41 PM T [facility] Anion Gap 9 3 - 14 mmol/L 02/09/2018 6:41 PM T [facility] Glucose 97 70 - 99 mg/dL 02/09/2018 6:41 PM T [facility] Comment:Fasting specimen Urea Nitrogen 14 7 - 30 mg/dL 02/09/2018 6:41 PM T [facility] Creatinine 0.62 0.52 - 1.04 mg/dL 02/09/2018 6:41 PM T [facility] GFR Estimate >90 >60 mL/min/1.7 m2 02/09/2018 6:41 PM T [facility] Comment:Non GFR Calc GFR Estimate If Black >90 >60 mL/min/1.7 m2 02/09/2018 6:41 PM T [facility] Comment: GFR Calc Calcium 9.2 8.5 - 10.1 mg/dL 02/09/2018 6:41 PM T [facility] Bilirubin Total 0.1(L) 0.2 - 1.3 mg/dL 02/09/2018 6:41 PM T [facility] Albumin 3.8 3.4 - 5.0 g/dL 02/09/2018 6:41 PM T [facility] Protein Total 7.6 6.8 - 8.8 g/dL 02/09/2018 6:41 PM T [facility] Alkaline Phosphatase 117 40 - 150 U/L 02/09/2018 6:41 PM CDT [facility] ALT 23 0 - 50 U/L 02/09/2018 6:41 PM CDT [facility] AST 21 0 - 45 U/L 02/09/2018 6:41 PM CDT [facility] Blood specimen (specimen) 02/09/2018 12:06 PM CDT 02/09/2018 12:07 PM CDT Payton Rand PA-C LAB - BL OOD ORDERABLES [facility] [address] [place] [address] from Last 3 Months or Most Recently Relevant to Health Maintenance Care Teams Director Of Strategic Partnerships Relationship Specialty Start Date End Date Augie Haney MD [facility] [address] [place] [address] PCP - General Emergency Medicine 02/21/22
--- OUTSIDE RECORDS SUMMARY | 2024-05-07 13:42 | XMS_ITS | Clinical Summary ---
Author Organization [place] Address [facility] [place] [address] Care Team Providers Care Sales And Retail Management Recruiter Name Role Phone Augie Haney MD Primary [...] 178 <200 mg/dL 02/09/2018 6:41 PM CDT [facility] Triglycerides 101 <150 mg/dL 02/09/2018 6:41 PM CDT [facility] Comment:Fasting specimen HDL Cholesterol 59 >49 mg/dL 8 6:41 PM CDT [facility] LDL Cholesterol Calculated 99 <100 mg/dL 02/09/2018 6:41 PM CDT [facility] Comment:Desirable: <100 mg/d l Non HDL Cholesterol 119 <130 mg/dL 02/09/2018 6:41 PM CDT [facility] Blood specimen (specimen) 02/09/2018 12:06 PM CDT 02/09/2018 12:07 PM CDT Payton Rand PA-C LAB - BL OOD ORDERABLES [facility] [address] [place] [address] * (ABNORMAL) Comprehensive metabolic panel (02/09/2018 12:06 PM CDT) Sodium 140 133 - 144 mmol/L 02/09/2018 6:41 PM CDT [facility] Potassium 4.3 3.4 - 5.3 mmol/L 02/09/2018 6:41 PM CDT [facility] Chloride 107 94 - 109 mmol/L 02/09/2018 [facility] Carbon Dioxide 24 20 - 32 mmol/L 02/09/2018 6:41 PM T [facility] Anion Gap 9 3 - 14 mmol/L 02/09/2018 6:[address] [facility] Glucose 97 70 - 99 mg/dL 02/09/2018 6:41 PM T [facility] Comment:Fasting specimen Urea Nitrogen 14 7 - 30 mg/dL 02/09/2018 6:41 PM T [facility] Creatinine 0.62 0.52 - 1.04 mg/dL 02/09/2018 6:41 PM CDT [facility] GFR Estimate >90 >60 mL/min/1.7 m2 02/09/2018 6:41 PM T [facility] Comment:Non GFR Calc GFR Estimate If Black >90 >60 mL/min/1.7 m2 02/09/2018 6:41 PM T [facility] Comment: GFR Calc Calcium 9.2 8.5 - 10.1 mg/dL 02/09/2018 6:41 PM CDT [facility] Bilirubin Total 0.1(L) 0.2 - 1.3 mg/dL 02/09/2018 6:41 PM T [facility] Albumin 3.8 3.4 - 5.0 g/dL 02/09/2018 6:41 PM T [facility] Protein Total 7.6 6.8 - 8.8 g/dL 02/09/2018 6:41 PM CDT [facility] Alkaline Phosphatase 117 40 - 150 U/L 02/09/2018 6:41 PM T [facility] ALT 23 0 - 50 U/L 02/09/2018 6:41 PM T [facility] AST 21 0 - 45 U/L 02/09/2018 6:41 PM T [facility] Blood specimen (specimen) 02/09/2018 12:06 PM CDT 02/09/2018 12:07 PM CDT Payton Rand PA-C LAB - BL OOD ORDERABLES [facility] [address] [place] [address] from Last 3 Months or Most Recently Relevant to Health Maintenance Care Teams Sales And Retail Management Recruiter Relationship Specialty Start Date End Date Augie Haney MD [facility] [address] [place] [address] PCP - General Emergency Medicine 02/21/22
--- NOTE | 2024-05-07 13:45 | CRLHL7_ITS ---
For Patients: As a result of the Century Cures Act, medical imaging exams and procedure reports are released immediately into your electronic medical record. You may view this report before your referring provider. If you have questions, please contact your health care provider. Indication: Degenerative disc disease. Technique: Multiplanar, multisequence MRI of the lumbar spine was performed without intravenous contrast. Comparison: MRI lumbar spine 11/07/2018. Findings: There are 5 lumbar type vertebral segments identified. The vertebral body heights are maintained without evidence of fracture. There is no discrete T1 hypointense marrow infiltrating process. The conus medullaris terminates at L2, normal. Cauda equina appears unremarkable. T12-L1: Minimal disc bulge without spinal canal or neural foraminal narrowing. Mild facet arthropathy. L1-2: Disc degeneration. Disc bulge with facet hypertrophy results in mild spinal canal narrowing. Mild right neural foraminal narrowing. Left neural foramen is patent. Mild facet arthropathy. Progressed. L2-3: Disc degeneration. Disc bulge with facet hypertrophy results in mild spinal canal narrowing. Moderate left and mild right neural foraminal narrowing. Moderate facet arthropathy. Progressed. L3-4: Disc degeneration, with opposing endplate degenerative marrow edema (Modic type 1). Disc bulge with facet hypertrophy results in mild spinal canal narrowing. [id number] left and mild right neural foraminal narrowing. Moderate facet arthropathy. Progressed. L4-5: Disc degeneration, with opposing endplate degenerative marrow edema (Modic type 1). Disc bulge results in mild spinal canal narrowing. Moderate neural foraminal narrowing. Moderate facet arthropathy. Progressed. L5-S1: Disc degeneration, with opposing endplate degenerative marrow edema (Modic type 1). Improved right subarticular disc protrusion. Mild spinal canal narrowing. Moderate to severe right and moderate left neural foraminal narrowing. Moderate facet arthropathy. Mild sacroiliac joint osteoarthritis. Impression: 1. At L5-S1, improved right subarticular disc protrusion. Moderate to severe right and moderate left neural foraminal stenosis. 2. Otherwise interval mild progression of multilevel degenerate spondylosis as compared to 11/07/2018. 3. At L4-5, moderate neural foraminal narrowing. 4. Mild to moderate spondylosis at the remaining lumbar levels. Dictated by Dawit Carbajal MD @ 05/08/2024 9:50:44 AM (Electronically Signed)
== END 2024-05-07 13:40 | disposition home or self-care (01) ==
LOC: MRI 13:40
PROVIDERS: PCP Internal Medicine; Visit Provider Family Medicine
DX: M51.36 Other intervertebral disc degeneration, lumbar region (principal); M51.27 Other intervertebral disc displacement, lumbosacral region; M47.816 Spondylosis without myelopathy or radiculopathy, lumbar region; M51.26 Other intervertebral disc displacement, lumbar region; M54.16 Radiculopathy, lumbar region
CPT/HCPCS: 72148

== ENCOUNTER 2024-05-28 10:14 | Outpatient (CLI) | payer MEDICARE, BC, SELFPAY ==
--- OUTSIDE RECORDS SUMMARY | 2024-05-28 10:17 | XMS_ITS | Clinical Summary ---
Author Organization [employer] [facility] Address [place], [place] [address] Care Team Providers Care Refrigerating Engineer Name Role Phone Augie Haney MD Primary Care Provider Allergies Active Allergy Reactions Criticality Noted Date Comments Oxycodone Emotional Disturbanc e,Other - Describe In Comment Field Low 04/02/2018 Medications Medication Sig Dispensed Refills Start Date End Date Status medication order composer Vitamin D 10,000 U daily 0 10/30/2014 Active traMADol (ULTRAM) 50 mg tabletIndications :Lumbar disc herniation TAKE 1 TABLET BY MOUTH 3 TIMES DAILY NEEDED 36 tablet 2 10/22/2018 Active ALPRAZolam (XANAX) 1 mg tablet Three Times A Day as needed 02/08/2018 Active diclofenac topical (VOLTAREN) 1 % gel APPLY A SMALL AMOUNT TOPICALLY AA BID PRN 2 03/06/2019 Active nystatin (MYCOSTATIN) ointment 11/14/2019 Active esomeprazole (NEXIUM) 40 mg capsule Take 40 mg by mouth. 2 times per day, before breakfast and dinner 05/04/2022 Active buPROPion (WELLBUTRIN XL) 150 mg Extended-Release tablet Take 150 mg by mouth once daily. 11/18/2022 Active Ventolin HFA 90 mcg/actuation inhaler INHALE 2 PUFFS BY MOUTH EVERY 6 HOURS NEEDED FOR SHORTNESS OF BREATH OR WHEEZING 08/02/2023 Active clobetasol (TEMOVATE) 0.05 % cream APPLY TO AFFECTED AREAS ON BODY TWICE DAILY FOR 2 WEEKS TAKE 2 WEEK BREAK REPEAT NEEDED FOR FLARES 12/07/2023 Active ascorbic acid, vitamin C, (VITAMIN C) 100 mg tablet Take 100 mg by mouth. Active escitalopram oxalate (LEXAPRO) 10 mg tablet Take 10 mg by mouth once daily. 04/25/2024 Active VITAMIN B COMPLEX ORAL Take 1 Tablet by mouth once daily. Active meloxicam 15 mg tablet Take 1 tablet by mouth once daily. 0 02/02/2017 05/15/2024 Discontinued (*Patient states no longer taking) PARoxetine (PAXIL) 20 mg tablet 01/20/2020 05/15/2024 Discontinued (*Patient states no longer taking) valsartan (DIOVAN) 80 mg tablet Take 80 mg by mouth once daily. 12/28/2022 05/15/2024 Discontinued (*Patient states no longer taking) rosuvastatin (Crestor) 10 mg tabletIndications :Bilateral carotid artery stenosis Take 1 Tablet (10 mg) by mouth at bedtime. 90 Tablet 3 01/19/2023 05/15/2024 Discontinued (*Patient states no longer taking) aspirin (ECOTRIN) 81 mg enteric coated tabletIndications :Bilateral carotid artery stenosis Take 1 Tablet (81 mg) by mouth once daily with a meal. 90 Tablet 3 01/19/2023 05/15/2024 Discontinued (*Patient states no longer taking) Active Problems Problem Noted Date Diagnosed Date Bilateral carotid artery stenosis 01/19/2023 DDD (degenerative disc disease), lumbar 08/04/20 14 Lumbar disc herniation 08/04/2014 Lumbar radicular pain 08/04/2014 Encounters Date Type Department Care Team Description 05/15/2024 10:40 AM CDT Office Visit [facility] [address] [place] [address] Navjot Darden MD Musculoskeletal Problem (Follow up back and hip pain, had an epidural steroid injection last on 03/26/24) 05/15/2024 Travel 05/09/2024 Orders Only [facility] [place] [address] [address] Aleida Chan HUC 1 scan: (1-Ord) [facility], LUMBAR SPINE WO CON, 05/07/2024 04/26/2024 Telephone [facility] [address] [place] [address] Navjot Darden MD Pain Management Care Management (change pain med) 04/12/2024 Lab Requisition [facility] [phone] Susanna Jc MD 04/04/2024 Transcribe Orders [facility] [address] [place] [place] [address] Marnie Chatterjee MD 03/26/2024 10:20 AM CDT Office Visit [facility] at [address] [address] Navjot Darden MD Procedure (L4-5 ILESI) 03/11/2024 11:45 AM CDT Ancillary Procedure [facility] [address] [place] [address] 03/11/2024 11:30 AM CDT Ancillary Procedure [facility] [address] [place] [address] 03/11/2024 10:00 AM CDT Office Visit [facility] [address] [place] [address] Navjot Darden MD Musculoskeletal Problem (Consult low [...] Sign Reading Time Taken Comments Blood Pressure 155/85 05/15/2024 10:49 AM CDT Pulse 79 05/15/2024 10:49 AM CDT Temperature 36.9 ??C (98.4 ??F) 05/15/2024 10:49 AM C DT Respiratory Rate 16 04/21/2007 8:00 AM CDT Oxygen Saturation 98% 05/15/2024 10:49 AM CDT Inhaled Oxygen Concentration - - Weight 76.9 kg (169 lb 9.6 oz) 03/11/2024 10:33 AM CDT Height 151.5 cm (4' 11.65) 11/02/2018 9:[address] Body Mass Index 33.52 11/02/2018 9:42 AM [facility] Plan of Treatment Upcoming Encounters Date Type Department Care Team (Late st Contact Info) Description 02/24/2025 9:00 AM CDT Office Visit [facility] [address] [place] [address] Angela Bergman, PhD, LP [address] [facility] [address] [place] [address] Health Maintenance Due Date Last Done Comments Tdap 1959 Depression screening for age 12+ 1960 Hepatitis C screening for age 18-79 1966 Tetanus booster 1968 Zoster (shingles) series for age 50+ (1 of 2) 1998 RSV vaccine for adults or pr egnancy (1 - 1-dose 60+ series) 2008 DEXA/DXA scan for age 65+ 2013 Medicare Wellness for age 65+ 2013 Pneumococcal series for age 65+ (1 of 1 - PCV) 2013 BMI (ht and wt on same day) for age 18+ 11/02/2019 11/02/2018, 09/07/2017 COVID-19 vaccine series ( season) 2024 10/26/2021, 12/08/2020, 11/17/2020 Influenza for age 65+ 05/12/2024 Medical Devices Implanted Type Area Director Customer Device Identifier Shelf Expiration Date Model / Serial / Lot [id number] spacer Olayinka/Canclls 8mm P Lordotic Acf Fd [id number] [[id number]] Implanted:Qty: 1 on 04/19/2007 at [facility] Explanted:at [facility] (Quantity not on file) Spine Musculoskeletal Transplant 02/14/2010 [id number] / [id number] / [id number] spacer Olayinka/Canclls 9mm P Lordotic Acf Fd [id number] [[id number]] Implanted:Qty: 1 on 04/19/2007 at [facility] Explanted:at [facility] (Quantity not on file) Spine Musculoskeletal Transplant 12/08/2009 [id number]# / [id number] / Plate Cerv 34mm 2 Level Ant Sp Reflex Hybrid - [id number] Implanted:Qty: 1 on 04/19/2007 at [facility] Spine [employer] [id number] / / Screw Bone 4.0x14mm Va-Sd Sp Reflex Hybrid - [id number] Implanted:Qty: 6 on 04/19/2007 at [facility] Spine [employer] [id number] / / Procedures Procedure Name Priority Date/Time Associated Diagnosis Comments MR SPINE LUMBAR WO Routine 05/07/2024 12 :00 AM CDT DDD (degenerative disc disease), lumbar Lumbar radiculopathy Lumbar facet arthropathy LAB TRACKING EVENT Routine 04/11/2024 10 :40 [...] radiculopathy from Last 3 Months Results * MR SPINE LUMBAR WO (05/07/2024 12:00 AM CDT) Anatomical Region Laterality Modality Spine, LUMBAR SPINE Magnetic Res onance Navjot Darden MD MR * LAB TRACKING EVENT (04/11/2024 10:40 AM CDT) Other (Other) Client Collect / Unknown 04/11/2024 10:40 AM CDT 04/12/2024 3:45 PM CDT Susanna Jc MD LAB BILL ONLY [facility] [address] [place] [address], * PATH TISSUE EXAM (04/11/2024 10:40 AM CDT) Case Report Pathology Report ?Case: [id number] ? Authorizing Provider: ??Susanna Jc MD ?? Collected: ? 04/11/2024 1040 ? Ordering Location: ? [facility] ?Received: ?04/12/2024 1722 ? Pathologist: ? Maude Rdz MD ? Specimens: ?? A) - Vaginal, Mole ? B) - Vulvar Biopsy ? 04/16/2024 2:58 PM CDT [facility] Tour Desk [facility] Final Diagnosis A) VAGINA, POSSIBLE [...] dysplasia and malignancy 04/16/2024 2:58 PM CDT [facility] [employer] Comment A,B) In part A, hyperkeratotic [...] residual/persiste nt lesions. 04/16/2024 2:58 PM CDT [facility] ENTRAL LABORATORY Clinical Information Vaginal irritation and a concerning mole 04/16/2024 2:58 PM CDT [facility] [employer] Gross Description A) Received in formalin, [...] cassette. SJM 04/12/2024 04/16/2024 2:58 PM CDT [facility] Microscopic Description The final diagnosis is based on microscopic examination of appropriate sections of all specimens. A) p53: Variable moderate staining (negative for overexpression) B) p53: Basilar staining present 04/16/2024 2:58 PM CDT [facility] Additional Information Interpreted at [facility] - [address] [facility] [address], [place] [address] Immunohistochemis try controls were reviewed and approved by the pathologist during this examination. 04/16/2024 2:58 PM CDT [facility] Other VAGINAL SWAB / Unknown 04/11/2024 10:40 AM CDT 04/12/2024 5:22 PM CDT Specimen (specimen) (Vulvar Biopsy) 04/11/2024 10:40 AM CDT 04/12/2024 5:22 PM CDT Susanna Jc MD PATHOLOGY/CYTOLOG [facility] [address] [place] [address], * AMB EPIDURAL STEROID INJECTION (03/26/2024 12:00 [...] For Patients: As a result of the s Act, medical imagingexams and procedure reports are [...] For Patients: ??As a result of the s Act, medical imaging exams and procedure reports [...] 11:32 AM 04/21/2007 3:36 PM Care Teams Refrigerating Engineer Relationship Specialty Start Date End Date Augie Haney MD [address] [place] [address] [facility] - General 04/13/07
--- OUTSIDE RECORDS SUMMARY | 2024-05-28 10:18 | XMS_ITS | Continuity of Care Document ---
Author Organization [facility] Address [address] [place] [address] Phone Care Team Providers Care Patient Access Director Name Role Phone Edwin RENDON, Amir Unavailable [...] - Active Procedures Procedure Date Office/Outpatient Visit,New, [facility] 2015 Postop followup visit [...] tient Visit,New, [facility], [address], [place], [place], [id number], [place] tel:[phone] [facility] Other spondylosis, lumbar region 201 [address] Mehbod Amir. [facility], [address] [place] [address] [place] [address], [id number], [place]. tel:[phone] Referring Provider: Navjot Perez, [address], [address]. tel:[phone] Z [facility] [place], [address] [place] [address], [address], tel:[phone] [facility] No Information 7 Panvica Tani. [facility], [address] [place] [address], [address], [id number], [place]. tel:[phone] Referring Provider: [facility] [address] [place], [address]. tel:[phone] Z [facility], [address] [place] [address], [address], [place] tel:[phone] [facility] No Information 7 No Information Referring Provider: Ghosh [facility] [address] [place], [address]. tel:[phone] Office consultation , moderate Z [facility], [address] [place] [address], [address], tel:[phone] [facility] [employer] [employer] No Information 7 No Information Family History Family Member Type Diagnosis Age At Onset No Information Payers Payer name Insurance type Covered constitution party ID Authoriza tion(s) [employer] [facility] CI [id number] Social History Type Description Quantity Date Captured [...]
--- OUTSIDE RECORDS SUMMARY | 2024-05-28 10:18 | XMS_ITS | Clinical Summary ---
Author Organization [place] Address [facility] [place] [address] Care Team Providers Care Substation Superintendent Name Role Phone Augie Haney MD Primary [...] 1950 ANNUAL REVIEW OF HM ORDERS 1948 DEPRESSION ACTION PLAN 1948 DEXA 1948 HEPATITIS C SCREENING 1966 FALL RISK ASSESSMENT 2013 MEDICARE ANNUAL WELLNESS VISIT 2013 PHQ-9 08/11/2018 02/09/2018 ZOSTER IMMUNIZATION (2 of 2) 09/09/2020 07/15/2020 GLUCOSE 02/09/2021 02/09/2018 LIPID 02/09/2023 02/09/2018 RSV VACCINE (1 - 1-dose 75+ series) 2023 COVID-19 Vaccine (4 - 2022-2 4 season) 2024 10/26/2021, 12/08/2020, 11/17/2020 INFLUENZA VACCINE (#1) 2024 [...] 178 <200 mg/dL 02/09/2018 6:41 PM CDT [facility] Triglycerides 101 <150 mg/dL 02/09/2018 6:41 PM CDT [facility] Comment:Fasting specimen HDL Cholesterol 59 >49 mg/dL 8 6:41 PM CDT [facility] LDL Cholesterol Calculated 99 <100 mg/dL 02/09/2018 6:41 PM CDT [facility] Comment:Desirable: <100 mg/d l Non HDL Cholesterol 119 <130 mg/dL 02/09/2018 6:41 PM CDT [facility] Blood specimen (specimen) 02/09/2018 12:06 PM CDT 02/09/2018 12:07 PM CDT Payton Rand PA-C LAB - BL OOD ORDERABLES [facility] [address] [place] [address] * (ABNORMAL) Comprehensive metabolic panel (02/09/2018 12:06 PM CDT) Sodium 140 133 - 144 mmol/L 02/09/2018 6:41 PM CDT [facility] Potassium 4.3 3.4 - 5.3 mmol/L 02/09/2018 6:41 PM CDT [facility] Chloride 107 94 - 109 mmol/L 02/09/2018 6:41 PM CDT [facility] Carbon Dioxide 24 20 - 32 mmol/L 02/09/2018 6:41 PM CDT [facility] Anion Gap 9 3 - 14 mmol/L 02/09/2018 6:41 PM CDT [facility] Glucose 97 70 - 99 mg/dL 02/09/2018 6:41 PM CDT [facility] Comment:Fasting specimen Urea Nitrogen 14 7 - 30 mg/dL 02/09/2018 6:41 PM CDT [facility] Creatinine 0.62 0.52 - 1.04 mg/dL 02/09/2018 6:41 PM CDT [facility] GFR Estimate >90 >60 mL/min/1.7 m2 02/09/2018 6:41 PM CDT [facility] Comment:Non GFR Calc GFR Estimate If Black >90 >60 mL/min/1.7 m2 02/09/2018 6:41 PM CDT [facility] Comment: GFR Calc Calcium 9.2 8.5 - 10.1 mg/dL 02/09/2018 6:41 PM CDT [facility] Bilirubin Total 0.1(L) 0.2 - 1.3 mg/dL 02/09/2018 6:41 PM CDT [facility] Albumin 3.8 3.4 - 5.0 g/dL 02/09/2018 6:41 PM CDT [facility] Protein Total 7.6 6.8 - 8.8 g/dL 02/09/2018 6:41 PM CDT [facility] Alkaline Phosphatase 117 40 - 150 U/L 02/09/2018 6:41 PM CDT [facility] ALT 23 0 - 50 U/L 02/09/2018 6:41 PM CDT [facility] AST 21 0 - 45 U/L 02/09/2018 6:41 PM CDT [facility] Blood specimen (specimen) 02/09/2018 12:06 PM CDT 02/09/2018 12:07 PM CDT Payton Rand PA-C LAB - BL OOD ORDERABLES [facility] [address] [place] [address] from Last 3 Months or Most Recently Relevant to Health Maintenance Care Teams Substation Superintendent Relationship Specialty Start Date End Date Augie Haney MD [facility] [address] [place] [address] PCP - General Emergency Medicine 02/21/22
--- OUTSIDE RECORDS SUMMARY | 2024-05-28 10:18 | XMS_ITS | Referral Summary ---
Author Organization [place] Address [facility] [place] [address] Care Team Providers Care Assurance Senior Manager Insurance Name Role Phone Augie Haney MD Primary [...] 178 <200 mg/dL 02/09/2018 6:41 PM CDT [facility] Triglycerides 101 <150 mg/dL 02/09/2018 6:41 PM CDT [facility] Comment:Fasting specimen HDL Cholesterol 59 >49 mg/dL 8 6:41 PM CDT [facility] LDL Cholesterol Calculated 99 <100 mg/dL 02/09/2018 6:41 PM CDT [facility] Comment:Desirable: <100 mg/d l Non HDL Cholesterol 119 <130 mg/dL 02/09/2018 6:41 PM CDT [facility] Blood specimen (specimen) 02/09/2018 12:06 PM CDT 02/09/2018 12:07 PM CDT Payton Rand PA-C LAB - BL OOD ORDERABLES [facility] [address] [place] [address] * (ABNORMAL) Comprehensive metabolic panel (02/09/2018 12:06 PM CDT) [facility] Sodium 140 133 - 144 mmol/L 02/09/2018 6:41 PM CDT [facility] Potassium 4.3 3.4 - 5.3 mmol/L 02/09/2018 6:41 PM CDT [facility] Chloride 107 94 - 109 mmol/L 02/09/2018 6:41 PM CDT [facility] Carbon Dioxide 24 20 - 32 mmol/L 02/09/2018 6:41 PM T [facility] Anion Gap 9 3 - 14 mmol/L 02/09/2018 6:41 PM T [facility] Glucose 97 70 - 99 mg/dL 02/09/2018 6:41 PM T [facility] Comment:Fasting specimen Urea Nitrogen 14 7 - 30 mg/dL 02/09/2018 6:41 PM T [facility] Creatinine 0.62 0.52 - 1.04 mg/dL 02/09/2018 6:41 PM T [facility] GFR Estimate >90 >60 mL/min/1.7 m2 02/09/2018 6:41 PM T [facility] Comment:Non GFR Calc GFR Estimate If Black >90 >60 mL/min/1.7 m2 02/09/2018 6:41 PM T [facility] Comment: GFR Calc Calcium 9.2 8.5 - 10.1 mg/dL 02/09/2018 6:41 PM T [facility] Bilirubin Total 0.1(L) 0.2 - 1.3 mg/dL 02/09/2018 6:41 PM T [facility] Albumin 3.8 3.4 - 5.0 g/dL 02/09/2018 6:41 PM T [facility] Protein Total 7.6 6.8 - 8.8 g/dL 02/09/2018 6:41 PM T [facility] Alkaline Phosphatase 117 40 - 150 U/L 02/09/2018 6:41 PM CDT [facility] ALT 23 0 - 50 U/L 02/09/2018 6:41 PM CDT [facility] AST 21 0 - 45 U/L 02/09/2018 6:41 PM CDT [facility] Blood specimen (specimen) 02/09/2018 12:06 PM CDT 02/09/2018 12:07 PM CDT Payton Rand PA-C LAB - BL OOD ORDERABLES [facility] [address] [place] [address] from Last 3 Months or Most Recently Relevant to Health Maintenance Care Teams Assurance Senior Manager Insurance Relationship Specialty Start Date End Date Augie Haney MD [facility] [address] [place] [address] PCP - General Emergency Medicine 02/21/22
== END 2024-05-28 10:15 | disposition home or self-care (01) ==
LOC: NFLDREF 10:16
PROVIDERS: PCP Internal Medicine; Visit Provider Internal Medicine
DX: R53.83 Other fatigue (principal); E55.9 Vitamin D deficiency, unspecified; I10 Essential (primary) hypertension; D64.9 Anemia, unspecified; Z13.1 Encounter for screening for diabetes mellitus; Z13.9 Encounter for screening, unspecified
CPT/HCPCS: 83540; 83550

== ENCOUNTER 2024-07-30 13:29 | Outpatient (CLI) | payer MEDICARE, BC, SELFPAY ==
--- OUTSIDE RECORDS SUMMARY | 2024-07-30 13:32 | XMS_ITS | Clinical Summary ---
Author Organization [place] Address [facility] [place] [address] Care Team Providers Care Flush Tester Name Role Phone Augie Haney MD Primary Care Provider Allergies No known active allergies Medications ALPRAZolam (XANAX) 1 MG tablet Three Times A Day as needed 02/08/2018 Active busPIRone (BUSPAR) 5 MG tablet Twice A Day 02/08/2018 Active meloxicam (MOBIC) 15 MG tablet Daily 02/06/2018 Active sertraline (ZOLOFT) 100 MG tablet Daily 02/08/2018 Active cyclobenzaprine (FLEXERIL) 5 MG tablet Three Times A Day as needed 12/28/2017 Active omeprazole-sodiu m bicarbonate ([facility] OMEPRAZOLE-SOD BICARBONATE) 20-1100 MG CAPS [...] School Help Needed Not on file 06/02 Comments Unknown Sex and Gender Information Value Date Recorded Sex Assigned at Not on file Legal Sex Female 11:09 AM CDT Gender Identity Not on file Sexual Orientation Not on file Last Filed Vital Signs Vital Sign Reading Time Taken Comments Blood Pressure 168/74 02/21/2022 4:30 PM CDT Pulse 69 02/21/2022 4:30 PM CDT Temperature 36.9 C (98.5 F) 02/21/2022 2:35 PM CDT Respiratory Rate 16 02/21/2022 2:35 PM CDT [...] 75+ series) 2023 COVID-19 Vaccine (4 - 2023-2 5 season) 2024 10/26/2021, 12/08/2020, 11/17/2020 INFLUENZA VACCINE [...] 178 <200 mg/dL 02/09/2018 6:41 PM CDT [facility] Triglycerides 101 <150 mg/dL 02/09/2018 6:41 PM CDT [facility] Comment:Fasting specimen HDL Cholesterol 59 >49 mg/dL 8 6:41 PM CDT [facility] LDL Cholesterol Calculated 99 <100 mg/dL 02/09/2018 6:41 PM CDT [facility] Comment:Desirable: <100 mg/ dl Non HDL Cholesterol 119 <130 mg/dL 02/09/2018 6:41 PM CDT [facility] Blood specimen (specimen) 02/09/2018 12:06 PM CDT 02/09/2018 12:07 PM CDT Payton Rand PA-C LAB - BLOOD SUSIE CARD Final Result [facility] [address] [place] [address] * (ABNORMAL) Comprehensive metabolic panel (02/09/2018 12:06 PM CDT) Sodium 140 133 - 144 mmol/L 02/09/2018 6:41 PM CDT [facility] Potassium 4.3 3.4 - 5.3 mmol/L 02/09/2018 6:41 PM CDT [facility] Chloride 107 94 - 109 mmol/L 02/09/2018 6:41 PM CDT [facility] Carbon Dioxide 24 20 - 32 mmol/L 02/09/2018 6:41 PM CDT [facility] Anion Gap 9 3 - 14 mmol/L 02/09/2018 6:41 PM CDT [facility] Glucose 97 70 - 99 mg/dL 02/09/2018 6:41 PM CDT [facility] Comment:Fasting specimen Urea Nitrogen 14 7 - 30 mg/dL 02/09/2018 6:41 PM CDT [facility] Creatinine 0.62 0.52 - 1.04 mg/dL 02/09/2018 6:41 PM CDT [facility] GFR Estimate >90 >60 mL/min/1.7 m2 02/09/2018 6:41 PM CDT [facility] Comment:Non GFR Calc GFR Estimate If Black >90 >60 mL/min/1.7 m2 02/09/2018 6:41 PM CDT [facility] Comment: GFR Calc Calcium 9.2 8.5 - 10.1 mg/dL 02/09/2018 6:41 PM CDT [facility] Bilirubin Total 0.1(L) 0.2 - 1.3 mg/dL 02/09/2018 6:41 PM CDT [facility] Albumin 3.8 3.4 - 5.0 g/dL 02/09/2018 6:41 PM CDT [facility] Protein Total 7.6 6.8 - 8.8 g/dL 02/09/2018 6:41 PM CDT [facility] Alkaline Phosphatase 117 40 - 150 U/L 02/09/2018 6:41 PM CDT [facility] ALT 23 0 - 50 U/L 02/09/2018 6:41 PM CDT [facility] AST 21 0 - 45 U/L 02/09/2018 6:41 PM CDT [facility] Blood specimen (specimen) 02/09/2018 12:06 PM CDT 02/09/2018 12:07 PM CDT us Payton Rand PA-C LAB - BLOOD SUSIE CARD Final Result [facility] [address] [place] [address] from Last 3 Months or Most Recently Relevant to Health Maintenance Insurance [employer] [place] MEDICARE Care Teams Flush Tester Relationship Specialty Start Date End Date Augie Haney MD [facility] [address] [place] [address] PCP - General Emergency Medicine 02/21/22
--- OUTSIDE RECORDS SUMMARY | 2024-07-30 13:32 | XMS_ITS | Referral Summary ---
Author Organization [place] Address [address] [facility] [place] [address] Care Team Providers Care Commercial Administrator Name Role Phone Augie Haney MD Primary [...] 178 <200 mg/dL 02/09/2018 6:41 PM CDT [facility] Triglycerides 101 <150 mg/dL 02/09/2018 6:41 PM CDT [facility] Comment:Fasting specimen HDL Cholesterol 59 >49 mg/dL 8 6:41 PM CDT [facility] LDL Cholesterol Calculated 99 <100 mg/dL 02/09/2018 6:41 PM CDT [facility] Comment:Desirable: <100 mg/d l Non HDL Cholesterol 119 <130 mg/dL 02/09/2018 6:41 PM CDT [facility] Blood specimen (specimen) 02/09/2018 12:06 PM CDT 02/09/2018 12:07 PM CDT Payton Rand PA-C LAB - BLOOD ORDE KYAW Final Result [facility] [address] [place] [address] * (ABNORMAL) Comprehensive metabolic panel (02/09/2018 12:06 PM CDT) Sodium 140 133 - 144 mmol/L 02/09/2018 6:41 PM CDT [facility] Potassium 4.3 3.4 - 5.3 mmol/L 02/09/2018 6:41 PM CDT [facility] Chloride 107 94 - 109 mmol/L 02/09/2018 6:41 PM CDT [facility] Carbon Dioxide 24 20 - 32 mmol/L 02/09/2018 6:41 PM CDT [facility] Anion Gap 9 3 - 14 mmol/L 02/09/2018 6:41 PM CDT [facility] Glucose 97 70 - 99 mg/dL 02/09/2018 6:41 PM CDT [facility] Comment:Fasting specimen Urea Nitrogen 14 7 - 30 mg/dL 02/09/2018 6:41 PM CDT [facility] Creatinine 0.62 0.52 - 1.04 mg/dL 02/09/2018 6:41 PM CDT [facility] GFR Estimate >90 >60 mL/min/1.7 m2 02/09/2018 6:41 PM CDT [facility] Comment:Non GFR Calc GFR Estimate If Black >90 >60 mL/min/1.7 m2 02/09/2018 6:41 PM CDT [facility] Comment: GFR Calc Calcium 9.2 8.5 - 10.1 mg/dL 02/09/2018 6:41 PM CDT [facility] Bilirubin Total 0.1(L) 0.2 - 1.3 mg/dL 02/09/2018 6:41 PM CDT [facility] Albumin 3.8 3.4 - 5.0 g/dL 02/09/2018 6:41 PM CDT [facility] Protein Total 7.6 6.8 - 8.8 g/dL 02/09/2018 6:41 PM CDT [facility] Alkaline Phosphatase 117 40 - 150 U/L 02/09/2018 6:41 PM CDT [facility] ALT 23 0 - 50 U/L 02/09/2018 6:41 PM CDT [facility] AST 21 0 - 45 U/L 02/09/2018 6:41 PM CDT [facility] Blood specimen (specimen) 02/09/2018 12:06 PM CDT 02/09/2018 12:07 PM CDT Payton Rand PA-C LAB - BLOOD SUSIE CARD Final Result [facility] [address] [place] [address] from Last 3 Months or Most Recently Relevant to Health Maintenance Insurance [facility] MEDICARE Care Teams Commercial Administrator Relationship Specialty Start Date End Date Augie Haney MD [facility] [address] [place] [id number] PCP - General Emergency Medicine 02/21/22
--- OUTSIDE RECORDS SUMMARY | 2024-07-30 13:32 | XMS_ITS | Clinical Summary ---
Author Organization [employer] [facility] [place], [place] [address] Care Team Providers Care Doping Supervisor Name Role Phone Augie Haney MD Primary Care Provider Allergies Active Allergy Reactions Criticality Noted Date Comments Oxycodone Emotional Disturbanc e,Other - Describe In Comment Field Low 04/02/2018 Medications Medication Sig Dispensed Refills Start Date End Date Status medication order composer Vitamin D 10,000 U daily 0 10/30/2014 Active traMADol (ULTRAM) 50 mg tabletIndications:Nora mbar [...] 1 Tablet by mouth once daily. Active Active Problems Problem Noted Date Diagnosed Date Bilateral carotid artery stenosis 01/19/2023 DDD (degenerative disc disease), lumbar 08/04/20 14 Lumbar disc herniation 08/04/2014 Lumbar radicular pain 08/04/2014 Encounters Date Type Department Care Team Description 07/02/2024 Telephone [facility] [address] [place] [address] Navjot Darden MD Prior Authorization (BACK INJECTION) 05/15/2024 10:40 AM CDT Office Visit [facility] [address] [place] [address] Navjot Darden MD Musculoskeletal Problem (Follow up back and hip pain, had an epidural steroid injection last on 03/26/24) 05/15/2024 Travel 05/09/2024 Orders Only [facility] [address] [facility] [place] [address] Aleida Chan, [facility] 1 scan: (1-Ord) [facility], LUMBAR SPINE WO CON, 05/07/2024 from Last 3 Months Social History Tobacco [...] 79 05/15/2024 10:49 AM CDT Temperature 36.9 C (98.4 F) 05/15/2024 10:49 AM CDT Respiratory Rate 16 04/21/2007 8:00 AM CDT Oxygen Saturation 98% 05/15/2024 10:49 AM CDT Inhaled Oxygen Concentration - - Weight 76.9 kg (169 lb 9.6 oz) 03/11/2024 10:33 AM CDT Height 151.5 cm (4' 11.65) 11/02/2018 9:[address] Body Mass Index 33.52 11/02/2018 9:42 AM SURVEY TECHNICIAN Plan of Treatment Upcoming Encounters Date Type Department Care Team (Late st Contact Info) Description 07/30/2024 2:00 PM SURVEY TECHNICIAN Office Visit [facility] [address] [place] [address] Navjot Darden MD [address] [place] [address] Arrived 02/24/2025 9:00 AM CDT Office Visit [facility] [address] [place] [phone] Angela Bergman, PhD, LP [address] [facility] [address] [place] [address] Health Maintenance Due Date Last Done Comments [...] day) for age 18+ 11/02/2019 11/02/2018, 09/07/2017 RSV vaccine for adults or pr egnancy (1 - 1-dose 75+ series) 2023 COVID-19 vaccine series ( season) 2024 10/26/2021, 12/08/2020, 11/17/2020 Influenza for age 65+ 05/12/2024 Medical Devices Implanted Type Area Cardiac Rn Device Identifier Shelf Expiration Date Model / Serial / Lot [id number] spacer Olayinka/Canclls 8mm P Lordotic Acf Fd [id number] [[id number]] Implanted:Qty: 1 on 04/19/2007 at [facility] Explanted:at [facility] (Quantity not on file) Spine Musculoskeletal Transplant 02/14/2010 [id number]# / [id number] / [id number] spacer Olayinka/Canclls 9mm P Lordotic Acf Fd [id number] [[id number]] Implanted:Qty: 1 on 04/19/2007 at [facility] Explanted:at [facility] (Quantity not on file) Spine Musculoskeletal Transplant 12/08/2009 [id number]# / [id number] / Plate Cerv 34mm 2 Level Ant Sp Reflex Hybrid - [id number] Implanted:Qty: 1 on 04/19/2007 at [facility] Spine [employer] [id number] / / Screw Bone 4.0x14mm Va-Sd Sp Reflex Hybrid - [id number] Implanted:Qty: 6 on 04/19/2007 at [facility] [id number] / / Procedures Procedure Name Priority Date/Time Associated Diagnosis Comments AMB EPIDURAL STEROID INJECTION Routine 07/30/2024 8:07 AM SURVEY TECHNICIAN Lumbar radiculopathy Lumbar disc herniation Lumbar facet arthropathy MR SPINE LUMBAR WO Routine 05/07/2024 12 :00 AM CDT DDD (degenerative disc disease), lumbar Lumbar radiculopathy Lumbar facet arthropathy from Last 3 Months Results * MR SPINE LUMBAR WO (05/07/2024 12:00 AM CDT) Anatomical Region Laterality Modality Spine, LUMBAR SPINE Magnetic Res onance Navjot Darden MD MR from Last 3 Months Advance Directives * Full Code (Latest Code Status on File) Date Activated Date Inactivated Comments 04/19/2007 11:32 AM 04/21/2007 3:36 PM Care Teams Doping Supervisor Relationship Specialty Start Date End Date Augie Haney MD [address] [place], [place] [phone] PCP - General 04/13/07
--- OUTSIDE RECORDS SUMMARY | 2024-07-30 13:32 | XMS_ITS | Continuity of Care Document ---
Author Organization [facility] Address [address] [place] [address] Phone Care Team Providers Care Curtain Cutter Hand Name Role Phone Edwin RENDON, Amir Unavailable [...] - Active Procedures Procedure Date Office/Outpatient Visit,[place], [facility] Postop followup visit X-ray exam of [...] tient Visit,New, [facility], [address], [place], [place], [id number], [place] tel:[phone] [facility] Other spondylosis, lumbar region 201 6 Mehbod Amir. [facility], [address] [place] [address] [place] [address], [id number], [place]. tel:[phone] Referring Provider: Navjot Perez, [address], [address]. tel:[phone] Z [facility] [place], [address] [place] [address], [address], tel:[phone] [facility] No Information 7 Panvica Tani. [facility], [address] [place] [address], [address], [id number], [place]. tel:[phone] Referring Provider: [facility] [address] [place], [address]. tel:[phone] Z [facility], [address] [place] [address], [address], [place] tel:[phone] [facility] No Information 7 No Information Referring Provider: [facility] [address] [place], [address]. tel:[phone] Office consultation , moderate Z [facility], [address] [place] [address], [address], tel:[phone] [facility] No Information 7 No Information Family History Family Member Type Diagnosis Age At Onset No Information Payers Payer name Insurance type Covered constitution party ID Authoriza tion(s) [employer] [facility] CI [id number] Social History Type Description Quantity Date Captured [...]
== END 2024-07-30 13:30 | disposition home or self-care (01) ==
LOC: INJ CL 13:29
PROVIDERS: PCP Internal Medicine; Visit Provider Family Medicine
DX: M54.16 Radiculopathy, lumbar region (principal); M51.369 Other intervertebral disc degeneration, lumbar region without mention of lumbar back pain or lower extremity pain
CPT/HCPCS: 62323; J0702; Q9966

== ENCOUNTER 2024-09-17 12:19 | Outpatient (CLI) | payer MEDICARE, BC, SELFPAY ==
--- OUTSIDE RECORDS SUMMARY | 2024-09-12 11:26 | XMS_ITS | Clinical Summary ---
Author Organization [place] Address [facility] [place] [address] Care Team Providers Care Video Poker Floorman Name Role Phone Augie Haney MD Primary [...] or Tdap) 07/15/2030 07/15/2020, 01/17/2011 Pneumococcal Vaccine: 50+ Years Completed 07/15/2020, 08/14/2019 HPV IMMUNIZATION Aged [...] 178 <200 mg/dL 02/09/2018 6:41 PM CDT [facility] Triglycerides 101 <150 mg/dL 02/09/2018 6:41 PM CDT [facility] Comment:Fasting specimen HDL Cholesterol 59 >49 mg/dL 8 6:41 PM CDT [facility] LDL Cholesterol Calculated 99 <100 mg/dL 02/09/2018 6:41 PM CDT [facility] Comment:Desirable: <100 mg/ dl Non HDL Cholesterol 119 <130 mg/dL 02/09/2018 6:41 PM CDT [facility] Blood specimen (specimen) 02/09/2018 12:06 PM CDT 02/09/2018 12:07 PM CDT Payton Rand PA-C LAB - BLOOD SUSIE CARD Final Result [facility] [address] [place] [address] * (ABNORMAL) Comprehensive metabolic panel (02/09/2018 12:06 PM CDT) Sodium 140 133 - 144 mmol/L 02/09/2018 6:41 PM CDT [facility] Potassium 4.3 3.4 - 5.3 mmol/L 02/09/2018 6:41 PM CDT [facility] Chloride 107 94 - 109 mmol/L 02/09/2018 6:41 PM CDT [facility] Carbon Dioxide 24 20 - 32 mmol/L 02/09/2018 6:41 PM CDT [facility] Anion Gap 9 3 - 14 mmol/L 02/09/2018 6:41 PM CDT [facility] Glucose 97 70 - 99 mg/dL 02/09/2018 6:41 PM CDT [facility] Comment:Fasting specimen Urea Nitrogen 14 7 - 30 mg/dL 02/09/2018 6:41 PM CDT [facility] Creatinine 0.62 0.52 - 1.04 mg/dL 02/09/2018 6:41 PM CDT [facility] GFR Estimate >90 >60 mL/min/1.7 m2 02/09/2018 6:41 PM CDT [facility] Comment:Non GFR Calc GFR Estimate If Black >90 >60 mL/min/1.7 m2 02/09/2018 6:41 PM CDT [facility] Comment: GFR Calc Calcium 9.2 8.5 - 10.1 mg/dL 02/09/2018 6:41 PM CDT [facility] Bilirubin Total 0.1(L) 0.2 - 1.3 mg/dL 02/09/2018 6:41 PM CDT [facility] Albumin 3.8 3.4 - 5.0 g/dL 02/09/2018 6:41 PM CDT [facility] Protein Total 7.6 6.8 - 8.8 g/dL 02/09/2018 6:41 PM CDT [facility] Alkaline Phosphatase 117 40 - 150 U/L 02/09/2018 6:41 PM CDT [facility] ALT 23 0 - 50 U/L 02/09/2018 6:41 PM CDT [facility] AST 21 0 - 45 U/L 02/09/2018 6:41 PM CDT [facility] Blood specimen (specimen) 02/09/2018 12:06 PM CDT 02/09/2018 12:07 PM CDT us Payton Rand PA-C LAB - BLOOD SUSIE CARD Final Result [facility] [address] [place] [address] from Last 3 Months or Most Recently Relevant to Health Maintenance Insurance [employer] [place] MEDICARE Care Teams Video Poker Floorman Relationship Specialty Start Date End Date Augie Haney MD [facility] [address] [place] [address] PCP - General Emergency Medicine 02/21/22
--- OUTSIDE RECORDS SUMMARY | 2024-09-12 11:26 | XMS_ITS | Referral Summary ---
Author Organization [place] Address [address] [facility] [place] [address] Care Team Providers Care Seat Mender Name Role Phone Augie Haney MD Primary [...] 178 <200 mg/dL 02/09/2018 6:41 PM CDT [facility] Triglycerides 101 <150 mg/dL 02/09/2018 6:41 PM CDT [facility] Comment:Fasting specimen HDL Cholesterol 59 >49 mg/dL 8 6:41 PM CDT [facility] LDL Cholesterol Calculated 99 <100 mg/dL 02/09/2018 6:41 PM CDT [facility] Comment:Desirable: <100 mg/d l Non HDL Cholesterol 119 <130 mg/dL 02/09/2018 6:41 PM CDT [facility] Blood specimen (specimen) 02/09/2018 12:06 PM CDT 02/09/2018 12:07 PM CDT Payton Rand PA-C LAB - BLOOD ORDE KYAW Final Result [facility] [address] [place] [address] * (ABNORMAL) Comprehensive metabolic panel (02/09/2018 12:06 PM CDT) Sodium 140 133 - 144 mmol/L 02/09/2018 6:41 PM CDT [facility] Potassium 4.3 3.4 - 5.3 mmol/L 02/09/2018 6:41 PM CDT [facility] Chloride 107 94 - 109 mmol/L 02/09/2018 6:41 PM CDT [facility] Carbon Dioxide 24 20 - 32 mmol/L 02/09/2018 6:41 PM CDT [facility] Anion Gap 9 3 - 14 mmol/L 02/09/2018 6:41 PM CDT [facility] Glucose 97 70 - 99 mg/dL 02/09/2018 6:41 PM CDT [facility] Comment:Fasting specimen Urea Nitrogen 14 7 - 30 mg/dL 02/09/2018 6:41 PM CDT [facility] Creatinine 0.62 0.52 - 1.04 mg/dL 02/09/2018 6:41 PM CDT [facility] GFR Estimate >90 >60 mL/min/1.7 m2 02/09/2018 6:41 PM CDT [facility] Comment:Non GFR Calc GFR Estimate If Black >90 >60 mL/min/1.7 m2 02/09/2018 6:41 PM CDT [facility] Comment: GFR Calc Calcium 9.2 8.5 - 10.1 mg/dL 02/09/2018 6:41 PM CDT [facility] Bilirubin Total 0.1(L) 0.2 - 1.3 mg/dL 02/09/2018 6:41 PM CDT [facility] Albumin 3.8 3.4 - 5.0 g/dL 02/09/2018 6:41 PM CDT [facility] Protein Total 7.6 6.8 - 8.8 g/dL 02/09/2018 6:41 PM CDT [facility] Alkaline Phosphatase 117 40 - 150 U/L 02/09/2018 6:41 PM CDT [facility] ALT 23 0 - 50 U/L 02/09/2018 6:41 PM CDT [facility] AST 21 0 - 45 U/L 02/09/2018 6:41 PM CDT [facility] Blood specimen (specimen) 02/09/2018 12:06 PM CDT 02/09/2018 12:07 PM CDT Payton Rand PA-C LAB - BLOOD SUSIE CARD Final Result [facility] [address] [place] [address] from Last 3 Months or Most Recently Relevant to Health Maintenance Insurance [facility] MEDICARE Care Teams Seat Mender Relationship Specialty Start Date End Date Augie Haney MD [facility] [address] [place] [phone] PCP - General Emergency Medicine 02/21/22
--- OUTSIDE RECORDS SUMMARY | 2024-09-12 11:26 | XMS_ITS | Clinical Summary ---
Author Organization [facility] Address [place], [place] [address] Care Team Providers Care Delivery Professional Name Role Phone Augie Haney MD Primary Care Provider Allergies Active Allergy Reactions Criticality Noted Date Comments Oxycodone Emotional Disturbanc e,Other - Describe In Comment Field Low 04/02/2018 Medications medication order composer Vitamin D 10,000 U daily 0 5 Active traMADol (ULTRAM) 50 mg tabletIndicatio ns:Lumbar disc herniation TAKE 1 TABLET BY MOUTH 3 TIMES DAILY NEEDED 36 tablet 2 9 Active ALPRAZolam (XANAX) 1 mg tablet Three Times A Day as needed 8 Active diclofenac topical (VOLTAREN) 1 % gel APPLY A SMALL AMOUNT TOPICALLY AA BID PRN 2 9 Active nystatin (MYCOSTATIN) ointment 0 Active esomeprazole (NEXIUM) 40 mg capsule Take 40 mg by mouth. 2 times per day, before breakfast and dinner 2 Active buPROPion (WELLBUTRIN XL) 150 mg Extended-Releas e tablet Take 150 mg by mouth once daily. 3 Active Ventolin HFA 90 mcg/actuation inhaler INHALE 2 PUFFS BY MOUTH EVERY 6 HOURS NEEDED FOR SHORTNESS OF BREATH OR WHEEZING 3 Active clobetasol (TEMOVATE) 0.05 % cream APPLY TO AFFECTED AREAS ON BODY TWICE DAILY FOR 2 WEEKS TAKE 2 WEEK BREAK REPEAT NEEDED FOR FLARES 4 Active ascorbic acid, vitamin C, (VITAMIN C) 100 mg tablet Take 100 mg by mouth. Active escitalopram oxalate (LEXAPRO) 10 mg tablet Take 10 mg by mouth once daily. 4 Active VITAMIN B COMPLEX ORAL Take 1 Tablet by mouth once daily. Active Active Problems Problem Noted Date Diagnosed Date Bilateral carotid artery stenosis 01/19/2023 DDD (degenerative disc disease), lumbar 08/04/20 14 Lumbar disc herniation 08/04/2014 Lumbar radicular pain 08/04/2014 Encounters Date Type Department Care Team Description 08/29/2024 Telephone [facility] [address] [place] [address] Navjot Darden MD Questions (EPIDURAL INJECTION) 07/30/2024 2:00 PM PODIATRY PROFESSOR Office Visit [facility] at [facility] [address] [place] [address] Navjot Darden MD Procedure (L4-5 ILESI) 07/02/2024 Telephone [facility] [address] [place] [address] Navjot Darden MD Prior Authorization (BACK INJECTION) from Last 3 Months Social History Tobacco [...] Paying Living Expenses Not on file 09/11/2021 Comments No Sex and Gender Information Value Date Recorded Sex Assigned at Not on file Legal Sex Female 5:23 AM PODIATRY PROFESSOR Gender Identity Not on file Sexual Orientation [...] Body Mass Index 33.52 11/02/2018 9:42 AM PODIATRY PROFESSOR Plan of Treatment Upcoming Encounters Date Type Department Care Team (Late st Contact Info) Description 09/17/2024 1:00 PM PODIATRY PROFESSOR Office Visit [facility] [address] [place] [address] Navjot Darden MD [address] [place] [address] 02/24/2025 9:00 AM CDT Office Visit [facility] [place] [address] [place] [id number] Angela Bergman, PhD, LP [address] [facility] [address] [place], [place] [id number] Health Maintenance Due Date Last Done Comments Tdap 1959 Depression screening for age 12+ 1960 Hepatitis C screening for age 18-79 1966 Tetanus booster 1968 Pneumococcal series for age 50+ (1 of 1 - PCV) 1998 Zoster (shingles) series for age 50+ (1 of 2) 1998 DEXA/DXA scan for age 65+ 2013 Medicare Wellness for age 65+ 2013 BMI (ht and wt on same day) for age 18+ 11/02/2019 11/02/2018, 09/07/2017 RSV vaccine for adults or pr egnancy (1 - 1-dose 75+ series) 2023 COVID-19 vaccine series ( season) 2024 10/26/2021, 12/08/2020, 11/17/2020 Influenza for age 65+ 05/12/2024 Medical Devices Implanted Type Area Lab Specialist Device Identifier Shelf Expiration Date Model / Serial / Lot [id number] spacer Olayinka/Canclls 8mm P Lordotic Acf Fd [id number] [[id number]] Implanted:Qty: 1 on 04/19/2007 at [facility] Explanted:at [facility] (Quantity not on file) Spine Musculoskeletal Transplant 02/14/2010 [id number]# / [id number] / [id number] spacer Olayinka/Canclls 9mm P Lordotic Acf Fd [id number] [[id number]] Implanted:Qty: 1 on 04/19/2007 at [facility] Explanted:at [facility] (Quantity not on file) Spine Musculoskeletal Transplant 12/08/2009 [id number]# / [id number] / Plate Cerv 34mm 2 Level Ant Sp Reflex Hybrid - [id number] Implanted:Qty: 1 on 04/19/2007 at [facility] Spine [employer] [id number] / / Screw Bone 4.0x14mm Va-Sd Sp Reflex Hybrid - [id number] Implanted:Qty: 6 on 04/19/2007 at [facility] Spine [facility] [employer] [id number] / / Procedures Procedure Name Priority Date/Time Associated Diagnosis Comments AMB EPIDURAL STEROID INJECTION Routine 07/30/2024 12:00 AM PODIATRY PROFESSOR Lumbar radiculopathy Lumbar disc herniation Lumbar facet arthropathy from Last 3 Months Results * AMB EPIDURAL STEROID INJECTION (07/30/2024 12:00 AM PODIATRY PROFESSOR) us Navjot Darden MD NEUROLOGY ORD Final Resu lt from Last 3 Months Insurance [employer] [place] BLUE MR [place] ONLY MEDICARE PART B HB ONLY Advance Directives * Full Code (Latest Code Status on File) Date Activated Date Inactivated Comments 04/19/2007 11:32 AM 04/21/2007 3:36 PM Care Teams Delivery Professional Relationship Specialty Start Date End Date Augie Haney MD [address] [place] [id number] PCP - General 04/13/07
== END 2024-09-17 12:20 | disposition home or self-care (01) ==
LOC: INJ CL 12:20
PROVIDERS: PCP Internal Medicine; Visit Provider Family Medicine
DX: M54.16 Radiculopathy, lumbar region (principal); M51.369 Other intervertebral disc degeneration, lumbar region without mention of lumbar back pain or lower extremity pain
CPT/HCPCS: 62323; Q9966

== ENCOUNTER 2025-01-15 10:39 | Outpatient (CLI) | payer MEDICARE, BC, SELFPAY | END 2025-01-15 10:40 | disposition home or self-care (01) | PROVIDERS: PCP Internal Medicine; Visit Provider Internal Medicine | DX: I10 Essential (primary) hypertension (principal); D64.9 Anemia, unspecified; R53.83 Other fatigue | CPT/HCPCS: 80053; 80061; 83540; 83550 ==

== ENCOUNTER 2025-05-02 10:36 | Outpatient (CLI) | payer MEDICARE, BC, SELFPAY | END 2025-05-02 10:37 | disposition home or self-care (01) | LOC: INJ CL 10:37 | PROVIDERS: PCP Internal Medicine; Visit Provider Family Medicine | DX: M54.16 Radiculopathy, lumbar region (principal); M51.369 Other intervertebral disc degeneration, lumbar region without mention of lumbar back pain or lower extremity pain | CPT/HCPCS: 62323; J0702; Q9966 ==

== ENCOUNTER 2025-05-07 09:34 | Outpatient (CLI) | payer MEDICARE, BC, SELFPAY | END 2025-05-07 09:35 | disposition home or self-care (01) | LOC: NFLDREF 09:35 | PROVIDERS: PCP Internal Medicine; Visit Provider Internal Medicine | DX: M25.50 Pain in unspecified joint (principal) | CPT/HCPCS: 82728 ==

== ENCOUNTER 2025-05-19 11:00 | Outpatient (CLI) | payer MEDICARE, BC, SELFPAY ==
--- NOTE | 2025-05-19 11:30 | CRLHL7_ITS ---
For Patients: As a result of the Century Cures Act, medical imaging exams and procedure reports are released immediately into your electronic medical record. You may view this report before your referring provider. If you have questions, please contact your health care provider. INDICATION: BILATERAL SCREENING MAMMOGRAM, ASYMPTOMATIC 75 Y/O FEMALE COMPARISON: 02/11/2019, 05/30/2016, 05/20/2013 TECHNIQUE: Digital mammogram in CC and MLO projections including computer-aided detection (CAD) and tomosynthesis. BREAST COMPOSITION: There are scattered areas of fibroglandular density. FINDINGS: No suspicious findings. ASSESSMENT: BI-RADS 2 Benign RECOMMENDATION: Annual screening mammogram. A lay language report of this examination will be provided to the patient. Dictated by: Latrell Osorio MD @ 05/19/2025 13:00:53 (Electronically Signed)
== END 2025-05-19 11:01 | disposition home or self-care (01) ==
LOC: MAMMO 11:00
PROVIDERS: PCP Internal Medicine; Visit Provider Internal Medicine
DX: Z12.31 Encounter for screening mammogram for malignant neoplasm of breast (principal)
CPT/HCPCS: 77063; 77067